=== PATIENT | male | born 1945 | race Caucasian/White ===

== ENCOUNTER 2022-05-27 10:15 | Outpatient (REF) | payer MEDICARE, SELFPAY ==
[2022-05-27 11:17] LABS: MANUAL DIFF FLAG NO
[2022-05-27 11:23] LABS: Basophils Absolute Auto 0.1 X10*3/uL (0.0-0.2); Basophils Percent Auto 1.1 % (0-2); Eosinophils Absolute Auto 0.2 X10*3/uL (0.0-0.4); Hematocrit 43.4 % (42.0-52.0); Hemoglobin 14.1 g/dl (14.0-18.0); Imm Gran Abs Auto 0.01 X10*3/uL (0.00-0.03); Imm Gran Pct Auto 0.2 % (0.0-0.4); Lymphocytes Absolute Auto 1.1 X10*3/uL (1.2-4.9); Lymphocytes Percent Auto 21.2 % (20-40); Mean Corpuscular HGB Conc 32.5 g/dl (31.0-36.0); Mean Corpuscular Hemoglobin 28.3 pg (27.0-33.0); Mean Platelet Volume 9.7 fL (9.4-12.4); Monocytes Absolute Auto 0.5 X10*3/uL (0.1-1.2); Monocytes Percent Auto 10.1 % (2-11); Neutrophils Absolute Auto 3.3 x10*3/uL (2.0-8.3); Neutrophils Percent Auto 63.4 % (45-73); Platelet Count 178 X10*3/uL (160-400); Red Blood Count 4.99 X10*6/uL (4.60-5.80); Red Cell Distribution Width 15.1 % (11.0-16.0); White Blood Count 5.2 X10*3/uL (4.8-10.8)
[2022-05-27 12:02] LABS: Alanine Aminotransferase 11 U/L (0-40); Albumin Level 4.2 g/dL (3.5-5.0); Alkaline Phosphatase 84 U/L (39-117); Anion Gap 13 (12-20); Aspartate Amino Transferase 21 U/L (5-37); Bilirubin Total 0.7 mg/dL (0.0-1.0); Blood Urea Nitrogen 21 mg/dL (9-16); Calcium 9.3 mg/dL (8.4-10.2); Carbon Dioxide 28 mmol/L (22-29); Chloride 101 mmol/L (96-108); Cholesterol 202 mg/dL; Estimated Glomerular Filt Rate > 60; Glucose Fasting 101 mg/dL (60-99); HDL Cholesterol 65 mg/dL; LDL Cholesterol Calculated 124 mg/dl; Potassium 3.5 mmol/L (3.3-5.1); Sodium 138 mmol/L (135-145); Total Protein 7.3 g/dL (6.5-8.0); Triglycerides 67 mg/dL
[2022-05-27 12:11] LABS: Prostate Specific Antigen Scr 4.05 ng/mL (<0.05-4.0); TSH reflex Free T4 1.63 uIU/mL (0.32-4.0)
[2022-05-27 13:46] LABS: Appearance Urine CLEAR; Color Urine YELLOW; Glucose Urine UA NEG (NEG); Leukocyte Esterase Urine NEG (NEG); Nitrite Urine NEG (NEG); Specific Gravity - Urine 1.025 (1.005-1.025); UACC Culture Trigger NO; Urine Blood 2+ (NEG); Urine Ketones NEG (NEG); Urine Protein NEG (NEG-TRACE)
[2022-05-27 14:29] LABS: Granular Casts Urine 0-2 /LPF; Squamous Epithelial Cell Urine 2+ /LPF; Triple Phosphate Crystal Urine 1+ /LPF; WBC Urine 0-2 /HPF (0-4)
== END 2022-05-27 10:16 | disposition home or self-care (01) ==
LOC: HO.HMGCLDS 10:15
PROVIDERS: PCP Nurse Practitioner Family; Visit Provider Internal Medicine Cardiovascular Disease
DX: R60.9 Edema, unspecified (principal); I50.32 Chronic diastolic (congestive) heart failure; Z12.5 Encounter for screening for malignant neoplasm of prostate
CPT/HCPCS: 36415; 80053; 80061; 81001; 84153; 84443; 85025

== ENCOUNTER 2022-12-26 10:19 | Outpatient (REF) | payer MEDICARE, SELFPAY ==
[2022-12-26 11:24] LABS: MANUAL DIFF FLAG NO
[2022-12-26 11:31] LABS: Basophils Absolute Auto 0.1 X10*3/uL (0.0-0.2); Basophils Percent Auto 1.3 % (0-2); Eosinophils Absolute Auto 0.3 X10*3/uL (0.0-0.4); Eosinophils Percent Auto 4.7 % (0-4); Hematocrit 42.3 % (42.0-52.0); Hemoglobin 13.6 g/dl (14.0-18.0); Imm Gran Abs Auto 0.01 X10*3/uL (0.00-0.03); Imm Gran Pct Auto 0.2 % (0.0-0.4); Lymphocytes Absolute Auto 1.5 X10*3/uL (1.2-4.9); Lymphocytes Percent Auto 27.3 % (20-40); Mean Corpuscular HGB Conc 32.2 g/dl (31.0-36.0); Mean Corpuscular Hemoglobin 29.1 pg (27.0-33.0); Mean Corpuscular Volume 90.6 fL (80.0-98.0); Monocytes Absolute Auto 0.5 X10*3/uL (0.1-1.2); Monocytes Percent Auto 8.9 % (2-11); Neutrophils Absolute Auto 3.2 x10*3/uL (2.0-8.3); Neutrophils Percent Auto 57.6 % (45-73); Platelet Count 195 X10*3/uL (160-400); Red Blood Count 4.67 X10*6/uL (4.60-5.80); Red Cell Distribution Width 14.9 % (11.0-16.0); White Blood Count 5.5 X10*3/uL (4.8-10.8)
[2022-12-26 12:36] LABS: Alanine Aminotransferase 13 U/L (0-40); Albumin Level 3.9 g/dL (3.5-5.0); Alkaline Phosphatase 80 U/L (39-117); Anion Gap 14 (12-20); Aspartate Amino Transferase 22 U/L (5-37); Bilirubin Total 0.9 mg/dL (0.0-1.0); Blood Urea Nitrogen 22 mg/dL (9-16); Calcium 9.3 mg/dL (8.4-10.2); Carbon Dioxide 27 mmol/L (22-29); Chloride 106 mmol/L (96-108); Cholesterol 183 mg/dL; Estimated Glomerular Filt Rate > 60; Glucose Fasting 94 mg/dL (60-99); HDL Cholesterol 65 mg/dL; LDL Cholesterol Calculated 106 mg/dl; Sodium 143 mmol/L (135-145); Total Protein 6.9 g/dL (6.5-8.0); Triglycerides 64 mg/dL
[2022-12-26 16:41] LABS: Appearance Urine Clear; Color Urine Yellow; Glucose Urine UA Negative (Negative); Leukocyte Esterase Urine Negative (Negative); Nitrite Urine Negative (Negative); Urine Blood Negative (Negative); Urine Ketones Negative (Negative); Urine Protein Negative (Neg-Trace)
== END 2022-12-26 10:20 | disposition home or self-care (01) ==
LOC: HO.HMGCLDS 10:19
PROVIDERS: PCP Nurse Practitioner Family; Visit Provider Nurse Practitioner Family
DX: I10 Essential (primary) hypertension (principal); R60.9 Edema, unspecified
CPT/HCPCS: 36415; 80053; 80061; 81003; 84443; 85025

== ENCOUNTER 2023-01-06 10:47 | Outpatient (REF) | payer MEDICARE, SELFPAY ==
--- NOTE | ~2023-01-06 | XR_ITS ---
EXAMINATION: XR SHOULDER, LEFT XR HUMERUS, LEFT CLINICAL INFORMATION: R58 - Hemorrhage, not elsewhere classified COMPARISON: None TECHNIQUE: Left shoulder is imaged in 3 views. The left humerus is imaged in 2 views. There are a total of 5 views. FINDINGS: Left shoulder shows no fracture or dislocation. There are degenerative changes glenohumeral joint with joint narrowing and spurring from the inferior humeral head and mild spurring inferior glenoid rim. There is elevation of the humeral head with faceting acromium which is commonly associated with chronic rotator cuff degeneration. The acromioclavicular alignment is normal. There are no visible rotator cuff calcifications. The left humerus shows no fracture or dislocation. No destructive process. There is mild spurring at the volar aspect olecranon. XR/XR humerus LT IMPRESSION: 1. Degenerative changes glenohumeral joint. 2. Elevation humeral head with faceting acromium, commonly associated with chronic rotator cuff degeneration. No visible rotator cuff calcifications. 3. No fracture, dislocation, or destructive process.
--- NOTE | ~2023-01-06 | XR_ITS ---
EXAMINATION: XR SHOULDER, LEFT XR HUMERUS, LEFT CLINICAL INFORMATION: R58 - Hemorrhage, not elsewhere classified COMPARISON: None TECHNIQUE: Left shoulder is imaged in 3 views. The left humerus is imaged in 2 views. There are a total of 5 views. FINDINGS: Left shoulder shows no fracture or dislocation. There are degenerative changes glenohumeral joint with joint narrowing and spurring from the inferior humeral head and mild spurring inferior glenoid rim. There is elevation of the humeral head with faceting acromium which is commonly associated with chronic rotator cuff degeneration. The acromioclavicular alignment is normal. There are no visible rotator cuff calcifications. The left humerus shows no fracture or dislocation. No destructive process. There is mild spurring at the volar aspect olecranon. XR/XR shoulder LT min 2V IMPRESSION: 1. Degenerative changes glenohumeral joint. 2. Elevation humeral head with faceting acromium, commonly associated with chronic rotator cuff degeneration. No visible rotator cuff calcifications. 3. No fracture, dislocation, or destructive process.
== END 2023-01-06 10:48 | disposition home or self-care (01) ==
LOC: HO.HMGCX 10:47
PROVIDERS: PCP Nurse Practitioner Family; Visit Provider Nurse Practitioner Family
DX: M19.012 Primary osteoarthritis, left shoulder (principal); R58 Hemorrhage, not elsewhere classified
CPT/HCPCS: 73030; 73060

== ENCOUNTER → 2023-01-30 12:25 | Outpatient (BNVA) | payer MEDICARE, SELFPAY | PROVIDERS: PCP Nurse Practitioner Family; Visit Provider Urology | DX: N20.0 Calculus of kidney (principal); R97.20 Elevated prostate specific antigen [PSA]; R31.29 Other microscopic hematuria | CPT/HCPCS: 51798; 99202 ==

== ENCOUNTER 2023-02-10 08:44 | Outpatient (REF) | payer MEDICARE, SELFPAY ==
--- NOTE | ~2023-02-10 | US_ITS ---
EXAMINATION: US RETROPERITONEAL COMPLETE (RENAL) CLINICAL INFORMATION: Other microscopic hematuria. COMPARISON: None available. TECHNIQUE: Real-time imaging of the kidneys and bladder. Exam is limited due to patient body habitus. FINDINGS: RIGHT KIDNEY: 9.0 x 4.7 x 5.0 cm (SAG x AP x TRV). The right kidney is slightly smaller than the left.. Renal cortical thickness is normal. There are 3 cysts measuring 2.7 x 1.6 x 2.1 cm exophytic to the lateral upper pole, 1.9 x 1.4 x 1.7 cm in the midpole and 1.5 x 1.6 x 1.7 cm in the lower pole. No imaging follow-up recommended. There is a 4 mm echogenic density with twinkle artifact in acoustic shadowing in the midpole suggestive of a stone. No hydronephrosis. LEFT KIDNEY: 11.5 x 4.7 x 4.5 cm (SAG x AP x TRV). The kidney is normal in size, contour, and echogenicity. Renal cortical thickness is normal. No calculi or focal parenchymal lesions. No hydronephrosis. BLADDER: Well distended and normal. Bilateral ureteral jets are demonstrated. Prevoid bladder volume is 169 mL. Postvoid bladder volume is 15 mL. The prostate gland measures 3.8 x 3.2 x 2.7 cm, volume 17 mL, and is normal in size. US/US retroperitoneal comp IMPRESSION: Right renal stone. Right renal cysts. Right kidney is slightly smaller than the left.
== END 2023-02-10 08:45 | disposition home or self-care (01) ==
LOC: HO.HMGCX 08:44
PROVIDERS: PCP Nurse Practitioner Family; Visit Provider Urology
DX: R31.29 Other microscopic hematuria (principal); N40.0 Benign prostatic hyperplasia without lower urinary tract symptoms
CPT/HCPCS: 76770

== ENCOUNTER 2023-03-17 12:52 | Outpatient (REF) | payer MEDICARE, SELFPAY ==
[2023-03-25 19:24] LABS: PSA, Ultra Sensitive 2.98 ng/mL
== END 2023-03-17 12:53 | disposition home or self-care (01) ==
LOC: HO.LAB 12:52
PROVIDERS: PCP Nurse Practitioner Family; Visit Provider Urology
DX: Z12.5 Encounter for screening for malignant neoplasm of prostate (principal); N40.0 Benign prostatic hyperplasia without lower urinary tract symptoms; R97.20 Elevated prostate specific antigen [PSA]
CPT/HCPCS: 36415; 84153

== ENCOUNTER → 2023-04-14 14:16 | Outpatient (BNVA) | payer MEDICARE, SELFPAY | PROVIDERS: PCP Nurse Practitioner Family; Visit Provider Urology | DX: N40.0 Benign prostatic hyperplasia without lower urinary tract symptoms (principal); N20.0 Calculus of kidney; R97.20 Elevated prostate specific antigen [PSA]; R31.29 Other microscopic hematuria | CPT/HCPCS: 52000; 99212 ==

== ENCOUNTER 2023-09-05 13:49 | Outpatient (AMB) | payer MEDICARE, SELFPAY ==
--- NOTE | 2023-09-05 13:51 | MHC.OFFWIV ---
Intake Vital Signs 09/05/23 13:52 Height 5 ft 5 in Weight 203 lb 6 oz BMI 33.8 BP 118/68 Blood Pressure Location Rt brachial Position Sitting Pulse 95 Pulse Source Pulse Oximeter Temp 97.8 F Temp Source Temporal Artery Scan Pulse Oximetry (%) 95 Intake Visit Reasons: EP Rash on face Intake Note: pt is here for c/o rash on face since this morning Patient Tobacco Use Status: Former Tobacco user Quit Date: 30 years ago Allergies No Known Allergies Allergy (Verified 09/05/23 13:53) Do you need a note to return to daycare/school/sports/work: Yes HPI HPI Comments History of Present Illness Details This is an 78-year-old male with a past medical history of BPH, hypertension and atrial fibrillation currently maintained on Coumadin presenting for evaluation of an uncomfortable rash on the right side of his face that he has had since this morning. Patient reports having headaches intermittently over the past 1 week and denies any fevers, chills or visual changes. PFSH Medical History Chronic edema HTN (hypertension) Pulmonary HTN Skin cancer BPH (benign prostatic hyperplasia) Osteoarthritis Paroxysmal A-fib Social History Housing: Apartment Patient Tobacco Use Status: Former Tobacco user Quit Date: 30 years ago Tobacco use type: Cigarette e-Cigarette/Vaping Use: Never Used Second Hand Smoke Exposure: No service: Yes Current occupational status: retired Cognitive needs: No Hearing needs: No Vision needs: No Review of Systems Const All systems reviewed & are unremarkable except as noted in HPI and below Denies chills, Denies fever(s) and Denies malaise Eyes Denies blurry vision, Denies change in vision, Denies diplopia, Denies other visual disturbances and Reports requires corrective lenses ENT Reports no additional complaints Skin/Breast Reports lesions and Reports rash Neuro Reports no additional complaints Psych Reports no additional complaints Physical Exam Vital Signs: Last Vital Signs Temp 97.8 F 09/05/23 13:52 Pulse 95 09/05/23 13:52 BP 118/68 09/05/23 13:52 Pulse Ox 95 09/05/23 13:52 BMI result Body Mass Index 33.8 Const General: cooperative, healthy appearing, comfortable, no acute distress and well developed Nutritional Appearance: overweight Orientation/consciousness: patient oriented x3 Limitations: ambulation with cane HEENT Head: Yes scalp lesion and Yes scalp tenderness Ears: external ears normal, TM's normal bilaterally and EAC's normal General nose exam: Normal external nose present Eyes General: appearance abnormal, both eyes Alignment and Position: alignment normal Periorbital: periorbital findings abnormal (single vescicle right upper eyelid adjacent to mucocutaneous border) Eyelids: No eyelids normal (lesion right upper eyelid as noted previously) Conjunctivae: conjunctivae normal (right conjunctiva injected) Corneas: corneas normal Pupils: Equal, round and reactive pupils present EOM: EOMs intact bilaterally Direct Ophthalmoscopy: no photophobia Skin Lesions: lesion noted (grouped erythematous papules, vesicles along the right V1 dermatome) Neuro General: patient oriented x3 Cranial nerves: Yes Equal, round and reactive pupils present Psych Appearance: grossly normal Mental Status: mental status grossly normal Insight: Good insight present (Psych) Judgement: Good judgement present (Psych) Assessment & Plan Assessment & Plan (1) Herpes zoster complicated: Code(s): B02.8 - Zoster with other complications Plan: Patient's history coupled with his examination is consistent with herpes zoster involving the V1 dermatome and the right eye. The patient's ophthalmologic provider is located at [facility]; they are emergently contacted and agree to see the patient in their office [facility]. Patient will see Dr. Sukhjinder Nguyen at approximately 3pm today. Patient will be prescribed Valtrex TID x 7 days and go immediately to [facility], [place]. The patient is in agreement with this plan of care. Medications: New valacyclovir 1,000 mg PO TID 21 tabs 0RF Coding Level of Care Code Est Pt Level 4 (93623) Diagnoses Herpes zoster complicated B02.8 Time Spent (min) 30
[2023-09-05 13:52] VITALS: BP 118/68; PULSE 95; TEMP 36.6; O2SAT 95; BMI 33.8
== END 2023-09-05 15:55 | disposition home or self-care (01) ==
PROVIDERS: PCP Nurse Practitioner Family; Visit Provider Physician Assistant
DX: B02.8 Zoster with other complications (principal)
CPT/HCPCS: 99214

== ENCOUNTER 2023-09-26 12:43 | Outpatient (REF) | payer MEDICARE, SELFPAY ==
--- NOTE | ~2023-09-26 | US_ITS ---
EXAMINATION: US RETROPERITONEAL LIMITED (RENAL ONLY) CLINICAL INFORMATION: Calculus of kidney. COMPARISON: X-ray KUB 09/26/2023. Renal ultrasound 02/10/2023. TECHNIQUE: Real-time imaging of the kidneys. Limited visualization due to bowel gas and body habitus. FINDINGS: RIGHT KIDNEY: 8.8 x 4.6 x 4.1 cm (SAG x AP x TRV). Right renal lower pole 0.5 cm calculus. No hydronephrosis. Right renal 2.2 cm upper pole, 1.5 cm mid pole and 1.9 cm lower pole cysts redemonstrated, better characterized on prior exam as visualization limited due to bowel gas. There is no indication for followup imaging. LEFT KIDNEY: 10.1 x 3.2 x 4.0 cm (SAG x AP x TRV). No hydronephrosis. No renal calculi. Renal cortical thickness is normal. Limited visualization. US/US renal BI IMPRESSION: Right renal lower pole 0.5 cm calculus. No hydronephrosis.
--- NOTE | ~2023-09-26 | XR_ITS ---
EXAMINATION: XR ABDOMEN KUB CLINICAL INDICATION: Renal calculus. COMPARISON: Renal ultrasound dated 02/10/2023. TECHNIQUE: 2 AP views of the abdomen and pelvis are submitted. FINDINGS: The bowel gas pattern is normal with no evidence of ileus or obstruction. No unusual soft tissue calcifications are noted. There is a marked lumbar levoscoliosis. There is an intact left hip total arthroplasty. There are aortic atherosclerotic calcifications. XR/XR KUB IMPRESSION: Unremarkable examination. No definite urinary calculus is noted, with imaging limited by overlapping bowel contents.
== END 2023-09-26 12:44 | disposition home or self-care (01) ==
LOC: HO.US 12:43
PROVIDERS: PCP Nurse Practitioner Family; Visit Provider Urology
DX: N20.0 Calculus of kidney (principal)
CPT/HCPCS: 74018; 76775

== ENCOUNTER 2023-12-20 10:26 | Outpatient (AMB) | payer MEDICARE, SELFPAY ==
[2023-12-20 12:31] VITALS: BP 108/60; PULSE 73; TEMP 36.7; O2SAT 97; BMI 33.9
--- NOTE | 2023-12-20 12:31 | MHC.OFFWIV ---
Intake Vital Signs 12/20/23 12:31 Height 5 ft 5 in Weight 204 lb BMI 33.9 BP 108/60 Blood Pressure Location Lt brachial Position Sitting Pulse 73 Pulse Source Pulse Oximeter Temp 98.1 F Temp Source Oral Pulse Oximetry (%) 97 Oxygen Delivery Method Room Air Intake Visit Reasons: EST/left shoulder pain (lobby) Intake Note: Pt is here today c/o Lt shoulder pain: No injury noted Patient Tobacco Use Status: Former Tobacco user Quit Date: 30 years ago Allergies No Known Allergies Allergy (Verified 12/20/23 12:39) HPI EST/left shoulder pain (lobby) HPI Details Patient is an 78-year-old male with history of coronary artery disease as well as atrial fibrillation, who comes into walk-in clinic complaining of acute on chronic left shoulder pain worsening recently with use. No acute trauma or repetitive trauma reported recently, however he does have history of similar symptoms and was evaluated about a year ago, with x-rays showing degenerative changes suggestive of chronic rotator cuff degeneration. He has some weakness and decreased range of motion due to pain intermittently with use. He denies chest pain or discomfort, shortness of breath, cough, fever, dizziness or weakness, myalgias or malaise, or other significant associated symptoms suggestive of cardiopulmonary etiology. Reviewed past medical history with the patient [facility] Medical History Chronic edema HTN (hypertension) Pulmonary HTN Skin cancer BPH (benign prostatic hyperplasia) Osteoarthritis Paroxysmal A-fib Social History Housing: Apartment Patient Tobacco Use Status: Former Tobacco user Quit Date: 30 years ago Tobacco use type: Cigarette e-Cigarette/Vaping Use: Never Used Second Hand Smoke Exposure: No service: Yes Current occupational status: retired Cognitive needs: No Hearing needs: No Vision needs: No Review of Systems Const All systems reviewed & are unremarkable except as noted in HPI and below Physical Exam Vital Signs: Last Vital Signs Temp 98.1 F 12/20/23 12:31 Pulse 73 12/20/23 12:31 BP 108/60 12/20/23 12:31 Pulse Ox 97 12/20/23 12:31 Oxygen Delivery Method Room Air 12/20/23 12:31 BMI result Body Mass Index 33.9 Const General: cooperative, healthy appearing, comfortable, no acute distress, alert, awake, Physically active and well groomed; No anxious, diaphoretic, ill appearing, intoxicated appearing, poor hygiene or tired appearing Nutritional Appearance: average body habitus Orientation/consciousness: oriented to person Limitations: no limitations Neck Neck: Yes normal visual inspection, Yes full ROM and Yes supple Chest Chest palpation & inspection: normal palpation of entire chest wall Resp Effort & Inspection: normal respiratory effort, able to speak in complete sentences, no audible wheezes, no cough, no grunting, not labored, no nasal flaring, no retractions and symmetric chest movement Auscultation: clear to auscultation bilaterally, no crackles, no rales, no rhonchi, no wheezes, lung sounds not diminished and No rub present Cardio Palpation: normal PMI Rate: regular rate Rhythm: regular rhythm Heart sounds: S1 normal heart sound present and S2 normal heart sound present Skin Other: Good color, warm and dry Neuro General: oriented to person Extrem Left upper extremity: normal capillary refill and shoulder/upper arm (Decreased abduction) Details: tenderness, abnormal ROM and other (Positive empty can test); ROM limited, no cyanosis and no edema Psych Appearance: grossly normal Mental Status: mental status grossly normal Speech and movement: Normal speech and movement present Affect: normal affect Attitude: cooperative Thought process: Normal thought process present Insight: Good insight present (Psych) Judgement: Good judgement present (Psych) Results Reviewed Results Reviewed: Shoulder x-ray today shows similar advanced arthritis changes from prior x-ray of last year. Assessment & Plan Assessment & Plan (1) Shoulder pain: Code(s): M25.519 - Pain in unspecified shoulder Qualifiers: Chronicity: acute Laterality: left Qualified Code(s): M25.512 - Pain in left shoulder Plan: Patient has left shoulder pain appears to be musculoskeletal in nature, although 12 lead EKG was done today due to his age as well as history of coronary artery disease as well as atrial fibrillation. 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 In regards to his shoulder, we did a x-ray today which shows similar degenerative joint disease changes from a year ago, that are apparently suspicious for chronic rotator cuff degeneration. This has likely been recently aggravated. I told him he should follow up with his primary care to consider PT or ortho referral if symptoms persist. He is aware and agrees with this plan. In the meantime he can take Tylenol or ice for the pain, as he can not tolerate NSAIDs due to blood thinner use. He knows to follow up as needed if symptoms persist or worsen. Orders: Orders AMB EKG-In Office 12/20/23 M25.519 - Pain in unspecified shoulder XR shoulder LT min 2V 12/20/23 M25.519 - Pain in unspecified shoulder Coding Level of Care Code Est Pt Level 4 (79140) Diagnoses Acute pain of left shoulder M25.512 Chronicity: acute Laterality: left
== END 2023-12-20 14:52 | disposition home or self-care (01) ==
PROVIDERS: PCP Nurse Practitioner Family; Visit Provider Physician Assistant Medical
DX: M25.512 Pain in left shoulder (principal); I48.0 Paroxysmal atrial fibrillation
CPT/HCPCS: 93000; 99214

== ENCOUNTER 2023-12-20 13:37 | Outpatient (REF) | payer MEDICARE, SELFPAY ==
--- NOTE | ~2023-12-20 | XR_ITS ---
EXAMINATION: XR SHOULDER, LEFT CLINICAL INFORMATION: Pain left shoulder COMPARISON: X-ray the left shoulder December 2022 TECHNIQUE: AP external rotation, Grashey, scapular Y, and axillary views of the left shoulder. FINDINGS: The humeral head is subluxed cephalad abutting the undersurface of the acromion as before. Advanced osteoarthritis of glenohumeral joint with prominent marginal osteophytes along the inferior aspect of the humeral head as before. Additional nonuniform joint space narrowing. Acromial clavicular joint there is arthrosis manifested by marginal osteophytes and subchondral cystic change. Surrounding bone and soft tissues unremarkable other than spondylosis of the visualized spine. XR/XR shoulder LT min 2V IMPRESSION: 1. Advanced osteoarthritis of the glenohumeral joint and acromioclavicular joint as before. 2. Degenerative changes of the visualized spine.
== END 2023-12-20 13:38 | disposition home or self-care (01) ==
LOC: HO.HMGCX 13:37
PROVIDERS: PCP Nurse Practitioner Family; Visit Provider Physician Assistant Medical
DX: M25.512 Pain in left shoulder (principal)
CPT/HCPCS: 73030

== ENCOUNTER 2024-04-14 09:53 | Outpatient (AMB) | payer MEDICARE, SELFPAY ==
--- NOTE | 2024-04-14 10:06 | MHC.PC.OV ---
Vital Signs 04/14/24 10:08 Height 5 ft 5 in Weight 198 lb BMI 32.9 BP 116/62 Blood Pressure Location Rt brachial Position Sitting Pulse 78 Pulse Source Pulse Oximeter Pulse Oximetry (%) 96 Oxygen Delivery Method Room Air Intake Visit Reasons: 6M. F/U-Arthritis Intake Note: Patient here to f/u on Arthritis Allergies No Known Allergies Allergy (Verified 04/14/24 11:07) Medication List - Last Reconciled 04/14/24 by KIERRA Garcia aspirin 1 tab PO DAILY cholecalciferol (vitamin D3) 50 mcg PO DAILY finasteride (Proscar) 5 mg PO DAILY 90 days furosemide 80 mg PO DAILY metoprolol tartrate 50 mg PO BID 90 days nitroglycerin 0 mg sublingual pravastatin 80 mg PO DAILY 90 days warfarin (Jantoven) 5 mg PO DAILY 90 days Tobacco use date assessed: 04/14/24 Fall risk assessment: No Falls in past year Last assessed Fall Risk: 04/14/24 Dental Screening Dental Screen Date: 04/14/24 Was dental information given to patient?: Patient declined HPI 6M. F/U-Arthritis HPI Details HTN: Blood pressure is stable, managed with furosemide 80mg and metoprolol 50mg bid. Will order labs. Denies chest pain, shortness of breath, headache, dizziness, and blurred vision. Due for PSA, will order. Denies dribbling with urination, weak stream, and frequent nocturia. Pt sees cardiology. He has not seen urology recently. Pt has had significant swelling of his BLE for years. He refuses compression socks. He also refuses to increase lasix because he pees enough. [facility] Medical History Chronic edema HTN (hypertension) Pulmonary HTN Skin cancer BPH (benign prostatic hyperplasia) Osteoarthritis Paroxysmal A-fib Social History Housing: Apartment Patient Tobacco Use Status: Former Tobacco user Tobacco use type: Cigarette e-Cigarette/Vaping Use: Never Used Second Hand Smoke Exposure: No service: Yes Current occupational status: retired Cognitive needs: No Hearing needs: No Vision needs: No Questionnaire PHQ-9 Over the last 2 weeks, how often have you been bothered by any of the following problems? 11871 - PHQ-9 Billing: Patient declined-do not bill Source: Developed by Drs. Jose Alejandro Owens, Davi Hinojosa and colleagues, with an educational perry from [employer]. Thrive Questionnaire Date Thrive assessed: 04/17/22 AUDIT C Alcohol Use Questionnaire (AUDIT-C) 1. How often do you have a drink containing alcohol?: Never 3. How often do you have six or more drinks on one occasion?: Never Total Score: 0 Score Reviewed/Action Taken: No EMIGDIO-7 AMB Questionnaire EMIGDIO-7 Date EMIGDIO - 7 assessed: 04/17/22 Source: Developed by Iris Farley Kurt Kroenke and colleagues, with an educational perry from [employer]. Review of Systems Const Reports as per HPI Physical exam (Primary Care) Vital Signs: Last Vital Signs Pulse 78 04/14/24 10:08 BP 116/62 04/14/24 10:08 Pulse Ox 96 04/14/24 10:08 Oxygen Delivery Method Room Air 04/14/24 10:08 BMI result Body Mass Index 32.9 Tobacco/Smoking Status: Tobacco use Status Tobacco use date assessed 04/14/24 04/14/24 10:11 Patient Tobacco Use Status Former Tobacco user 04/14/24 10:07 Tobacco use type Cigarette 04/14/24 10:07 e-Cigarette/Vaping Use Never Used 04/14/24 10:07 Thrive Assessment: Date of Thrive Assessment Date Thrive assessed 04/17/22 04/14/24 10:07 Const General: cooperative Orientation/consciousness: patient oriented x3 Resp Effort & Inspection: normal respiratory effort Auscultation: clear to auscultation bilaterally and diminished lung sounds Cardio Rate: regular rate Rhythm: regular rhythm Heart sounds: S1 normal heart sound present and S2 normal heart sound present Neuro General: patient oriented x3 Extrem Right lower extremity: edema Details: pitting and 3+ Left lower extremity: edema Details: pitting and 3+ Psych Appearance: grossly normal Mental Status: mental status grossly normal Speech and movement: Normal speech and movement present Affect: normal affect Attitude: cooperative Thought process: Normal thought process present Thought content: Normal thought content present Insight: Good insight present (Psych) Judgement: Good judgement present (Psych) Assessment and Plan Assessment & Plan (1) HTN (hypertension): Code(s): I10 - Essential (primary) hypertension Plan: Stable, labs ordered (2) Elevated PSA: Code(s): R97.20 - Elevated prostate specific antigen [PSA] Plan: PSA ordered (3) Vitamin D deficiency: Code(s): E55.9 - Vitamin D deficiency, unspecified Plan: Labs ordered Plan The patient agreed to the use of a medical laboratory technical officer for this encounter. Scribed for KIERRA Alvarado by damien Minor scribe, on 04/14/2024 at 10:25 EST. Orders: Orders UA CC w/rflx Micro + Cult Today I10 - Essential (primary) hypertension PSA, Ultra Sensitive Today R97.20 - Elevated prostate specific antigen [PSA] Vitamin D 25-OH Total Today E55.9 - Vitamin D deficiency, unspecified Complete Blood Count Auto Diff Today I10 - Essential (primary) hypertension Comprehensive [place]. Panel Fast Today I10 - Essential (primary) hypertension TSH reflex Free T4 Today I10 - Essential (primary) hypertension Lipid Panel Today I10 - Essential (primary) hypertension Coding Level of Care Code Est Pt Level 3 (04045) Diagnoses HTN (hypertension) I10 Elevated PSA R97.20 Vitamin D deficiency E55.9
[2024-04-14 10:08] VITALS: BP 116/62; PULSE 78; O2SAT 96; BMI 32.9
== END 2024-04-14 10:45 | disposition home or self-care (01) ==
PROVIDERS: PCP Nurse Practitioner Family; Visit Provider Nurse Practitioner Family
DX: I10 Essential (primary) hypertension (principal); R97.20 Elevated prostate specific antigen [PSA]; E55.9 Vitamin D deficiency, unspecified
CPT/HCPCS: 99213

== ENCOUNTER 2024-05-28 09:08 | Outpatient (AMB) | payer MEDICARE, SELFPAY ==
--- NOTE | 2024-05-28 09:27 | MHC.OFFVIS ---
Intake Visit Reasons: overdue f/u. BPH. KUB and renal ultrasound Intake Note: Patient is present for a overdue f/u, BPH.KUB and renal uktrasound Urology Med: None Antibiotic Allergy: None Blood Thinner: Aspirin, Warfarin Insurance Territory Manager Required: No Allergies No Known Allergies Allergy (Verified 05/28/24 09:29) Medication List - Last Reconciled 05/28/24 by Willa Wyatt MD aspirin 1 tab PO DAILY cholecalciferol (vitamin D3) 50 mcg PO DAILY finasteride (Proscar) 5 mg PO DAILY 90 days furosemide 80 mg PO DAILY metoprolol tartrate 50 mg PO BID 90 days nitroglycerin 0 mg sublingual pravastatin 80 mg PO DAILY 90 days warfarin (Jantoven) 5 mg PO DAILY 90 days HPI Comments Details: 05/28/2024--Ramsey is followed for BPH and kidney stone, microscopic hematuria, he is on Coumadin. He is prescribed Proscar. I reviewed renal ultrasound 09/26/2023 right renal stones stable. He states he has voiding without difficulty. Continue to monitor right kidney stone. Follow-up in 9 months. Review of chart: 01/30/2023--Ramsey is a 77-year-old male who presents to the clinic as new patient evaluation for elevated PSA. The patient denies dysuira. He does not have history of UTI. Smoked one pack a day till the age of 48 years. Occasional postvoid dribbling after voiding. PSA results reviewed?05/27/2022?4.05. Evaluation today: Blood: 1+, Leukocytes: negative. Bladder scan PVR: 0 mL AUA symptom score: 6. Prostate exam: Smooth, no suspicious nodules palpated. Plan: Elevated PSA will monitor. Repeat PSA was ordered. Microscopic hematuria. Urine cytology was ordered. Cystoscopy procedure was explained at length. US renal was ordered. 04/14/23-- Pt being evaluated due to microscopic hematuria and elevated PSA. Repeat PSA results reviewed?03/17/23?2.98 US retroperitoneal--02/10/23-- Bladder: WNL, Findings of right renal stone and right renal cysts. Right kidney is slightly smaller than the left. Evaluation today-- Blood:2+ leukocytes: negative. Cystoscopy findings: No suspicious bladder lesions visualized. Bladder: WNL. prostate - bilobar enlargement, prostate not obstructive PFSH Medical History (Updated 06/29/24 @ 17:11 by Rob Hussein, [facility]) CARA (acute kidney injury) Kidney stone Kidney cysts Chronic edema HTN (hypertension) Pulmonary HTN Skin cancer BPH (benign prostatic hyperplasia) Osteoarthritis Paroxysmal A-fib Social History Housing: Apartment Patient Tobacco Use Status: Former Tobacco user Tobacco use type: Cigarette e-Cigarette/Vaping Use: Never Used Second Hand Smoke Exposure: No service: Yes Current occupational status: retired Cognitive needs: No Hearing needs: No Vision needs: No Review of Systems Const All systems reviewed & are unremarkable except as noted in HPI and below Reports no additional complaints Eyes Reports no additional complaints ENT Reports no additional complaints Card Reports no additional complaints Resp Reports no additional complaints GI Reports no additional complaints Reports as per HPI Musc Reports no additional complaints Skin/Breast Reports system reviewed and no additional complaints, except as documented Neuro Reports no additional complaints Psych Reports no additional complaints Endo Reports no additional complaints Kwaku/Lymph Reports no additional complaints Aller/Immun Reports no additional complaints Results AMB Urinalysis, Automated UA Leukoctes 0 Arvind/uL Last Edit by DENISE [place] on 05/28/24 09:38 UA Nitrite Negative Last Edit by DENISE [place] on 05/28/24 09:38 UA Urobilinogen 0.2 mg/dL Last Edit by DENISE [place] on 05/28/24 09:38 UA Protein 15 mg/dL Last Edit by DENISE [place] on 05/28/24 09:38 UA pH 6.0 Last Edit by DENISE [place] on 05/28/24 09:38 UA Blood 25 Perico/uL Last Edit by DENISE [place] on 05/28/24 09:38 UA Specific [place] 1.015 Last Edit by DENISE [place] on 05/28/24 09:38 UA Ketone Negative Last Edit by EDNISE [place] on 05/28/24 09:38 UA Bilirubin 0 mg/dL Last Edit by DENISE [place] on 05/28/24 09:38 UA Glucose 0 mg/dL Last Edit by DENISE [place] on 05/28/24 09:38 Results Reviewed Results Reviewed: Laboratory Last Values Urine pH (Auto) 6.0 05/28/24 09:36 Specific [place] (Auto) 1.015 05/28/24 09:36 Urine Protein (Auto) 15 mg/dL 05/28/24 09:36 Glucose (UA)(Auto) 0 mg/dL 05/28/24 09:36 Urine Ketones (Auto) Negative 05/28/24 09:36 Urine Blood (Auto) 25 Perico/uL 05/28/24 09:36 Urine Nitrite (Auto) Negative 05/28/24 09:36 Urine Bilirubin (Auto) 0 mg/dL 05/28/24 09:36 Urine Urobilinogen (Auto) 0.2 mg/dL 05/28/24 09:36 Leukocyte Esterase (Auto) 0 Arvind/uL 05/28/24 09:36 Date of Service: 09/26/23 EXAMINATION: US RETROPERITONEAL LIMITED (RENAL ONLY) CLINICAL INFORMATION: Calculus of kidney. COMPARISON: X-ray KUB 09/26/2023. Renal ultrasound 02/10/2023. TECHNIQUE: Real-time imaging of the kidneys. Limited visualization due to bowel gas and body habitus. FINDINGS: RIGHT KIDNEY: 8.8 x 4.6 x 4.1 cm (SAG x AP x TRV). Right renal lower pole 0.5 cm calculus. No hydronephrosis. Right renal 2.2 cm upper pole, 1.5 cm mid pole and 1.9 cm lower pole cysts redemonstrated, better characterized on prior exam as visualization limited due to bowel gas. There is no indication for followup imaging. LEFT KIDNEY: 10.1 x 3.2 x 4.0 cm (SAG x AP x TRV). No hydronephrosis. No renal calculi. Renal cortical thickness is normal. Limited visualization. IMPRESSION: Right renal lower pole 0.5 cm calculus. No hydronephrosis. Date of Service: 02/10/23 EXAMINATION: US RETROPERITONEAL COMPLETE (RENAL) CLINICAL INFORMATION: Other microscopic hematuria. COMPARISON: None available. TECHNIQUE: Real-time imaging of the kidneys and bladder. Exam is limited due to patient body habitus. FINDINGS: RIGHT KIDNEY: 9.0 x 4.7 x 5.0 cm (SAG x AP x TRV). The right kidney is slightly smaller than the left.. Renal cortical thickness is normal. There are 3 cysts measuring 2.7 x 1.6 x 2.1 cm exophytic to the lateral upper pole, 1.9 x 1.4 x 1.7 cm in the midpole and 1.5 x 1.6 x 1.7 cm in the lower pole. No imaging follow-up recommended. There is a 4 mm echogenic density with twinkle artifact in acoustic shadowing in the midpole suggestive of a stone. No hydronephrosis. LEFT KIDNEY: 11.5 x 4.7 x 4.5 cm (SAG x AP x TRV). The kidney is normal in size, contour, and echogenicity. Renal cortical thickness is normal. No calculi or focal parenchymal lesions. No hydronephrosis. BLADDER: Well distended and normal. Bilateral ureteral jets are demonstrated. Prevoid bladder volume is 169 mL. Postvoid bladder volume is 15 mL. The prostate gland measures 3.8 x 3.2 x 2.7 cm, volume 17 mL, and is normal in size. IMPRESSION: Right renal stone. Right renal cysts. Right kidney is slightly smaller than the left. Assessment & Plan Assessment & Plan (1) BPH (benign prostatic hyperplasia): Code(s): N40.0 - Benign prostatic hyperplasia without lower urinary tract symptoms Category: Medical (2) Microscopic hematuria: Code(s): R31.29 - Other microscopic hematuria Category: Medical (3) Kidney stone: Code(s): N20.0 - Calculus of kidney Category: Medical Plan Monitor kidney stones. Follow-up in 9 months renal ultrasound prior Orders: Orders AMB Urinalysis Automated 05/28/24 Z13.9 - Encounter for screening, unspecified US renal BI 7 Months N20.0 - Calculus of kidney, R31.29 - Other microscopic hematuria, N40.0 - Benign prostatic hyperplasia without lower urinary tract symptoms Medications: Changed From finasteride 5 mg PO DAILY 30 days 30 tabs 0RF To finasteride (Proscar) 5 mg PO DAILY 90 tabs 3RF 90 days Coding Level of Care Code Est Pt Level 3 (54172) Diagnoses BPH (benign prostatic hyperplasia) N40.0 Microscopic hematuria R31.29 Kidney stone N20.0
== END 2024-05-28 10:06 | disposition home or self-care (01) ==
PROVIDERS: PCP Nurse Practitioner Family; Visit Provider Urology
DX: N40.0 Benign prostatic hyperplasia without lower urinary tract symptoms (principal); R31.29 Other microscopic hematuria; N20.0 Calculus of kidney
CPT/HCPCS: 99213

== ENCOUNTER → 2024-05-28 09:08 | Outpatient (BNVA) | payer MEDICARE, SELFPAY | PROVIDERS: PCP Nurse Practitioner Family; Visit Provider Urology | DX: N40.0 Benign prostatic hyperplasia without lower urinary tract symptoms (principal); N20.0 Calculus of kidney; R31.29 Other microscopic hematuria; Z79.01 Long term (current) use of anticoagulants | CPT/HCPCS: 81003; 99212 ==

== ENCOUNTER 2024-06-22 11:11 | Outpatient (REF) | payer MEDICARE, SELFPAY ==
[2024-06-22 13:32] LABS: MANUAL DIFF FLAG NO
[2024-06-22 13:39] LABS: Basophils Absolute Auto 0.1 X10*3/uL (0.0-0.2); Eosinophils Absolute Auto 0.2 X10*3/uL (0.0-0.4); Eosinophils Percent Auto 3.5 % (0-4); Hematocrit 39.8 % (42.0-52.0); Hemoglobin 13.2 g/dl (14.0-18.0); Imm Gran Abs Auto 0.01 X10*3/uL (0.00-0.03); Imm Gran Pct Auto 0.1 % (0.0-0.4); Lymphocytes Absolute Auto 1.5 X10*3/uL (1.2-4.9); Lymphocytes Percent Auto 21.4 % (20-40); Mean Corpuscular HGB Conc 33.2 g/dl (31.0-36.0); Mean Corpuscular Hemoglobin 29.1 pg (27.0-33.0); Mean Corpuscular Volume 87.9 fL (80.0-98.0); Mean Platelet Volume 10.4 fL (9.4-12.4); Monocytes Absolute Auto 0.7 X10*3/uL (0.1-1.2); Monocytes Percent Auto 10.7 % (2-11); Neutrophils Absolute Auto 4.4 x10*3/uL (2.0-8.3); Neutrophils Percent Auto 63.3 % (45-73); Platelet Count 208 X10*3/uL (160-400); Red Blood Count 4.53 X10*6/uL (4.60-5.80); Red Cell Distribution Width 16.3 % (11.0-16.0); White Blood Count 6.9 X10*3/uL (4.8-10.8)
[2024-06-22 14:09] LABS: Alanine Aminotransferase 15 U/L (0-40); Alkaline Phosphatase 73 U/L (39-117); Anion Gap 17 (12-20); Aspartate Amino Transferase 25 U/L (5-37); Blood Urea Nitrogen 17 mg/dL (9-16); Calcium 9.8 mg/dL (8.4-10.2); Carbon Dioxide 25 mmol/L (22-29); Chloride 100 mmol/L (96-108); Cholesterol 162 mg/dL (<200); Estimated Glomerular Filt Rate > 60; Glucose Fasting 111 mg/dL (60-99); HDL Cholesterol 62 mg/dL (>40); LDL Cholesterol Calculated 86 mg/dL (<100); Potassium 3.2 mmol/L (3.3-5.1); Sodium 139 mmol/L (135-145); TSH reflex Free T4 1.73 uIU/mL (0.32-4.0); Total Protein 7.5 g/dL (6.5-8.0); Triglycerides 72 mg/dL (<150); Vitamin D 25-OH Total 30.2 ng/mL (>30)
[2024-07-02 02:03] LABS: PSA, Ultra Sensitive 0.02 ng/mL
== END 2024-06-22 11:12 | disposition home or self-care (01) ==
LOC: HO.HMGCLDS 11:11
PROVIDERS: PCP Nurse Practitioner Family; Visit Provider Nurse Practitioner Family
DX: I10 Essential (primary) hypertension (principal); E55.9 Vitamin D deficiency, unspecified; R97.20 Elevated prostate specific antigen [PSA]; Z12.5 Encounter for screening for malignant neoplasm of prostate
CPT/HCPCS: 36415; 80053; 80061; 82306; 84153; 84443; 85025

== ENCOUNTER 2024-09-15 09:50 | Outpatient (REF) | payer MEDICARE, SELFPAY ==
[2024-09-21 21:33] LABS: PSA, Ultra Sensitive <0.02 ng/mL
== END 2024-09-15 09:51 | disposition home or self-care (01) ==
LOC: HO.HMGCX 09:50
PROVIDERS: PCP Nurse Practitioner Family; Visit Provider Urology
DX: N20.0 Calculus of kidney (principal); R31.29 Other microscopic hematuria; N40.0 Benign prostatic hyperplasia without lower urinary tract symptoms; R97.20 Elevated prostate specific antigen [PSA]; Z12.5 Encounter for screening for malignant neoplasm of prostate
CPT/HCPCS: 36415; 76775; 84153

== ENCOUNTER 2024-09-27 15:01 | Outpatient (AMB) | payer MEDICARE, SELFPAY ==
--- NOTE | 2024-09-27 13:27 | A.OFFVIS_ITS ---
Intake Visit Reasons: follow up PSA/US(PSA Pending) Intake Note: Patient is present for PSA F/U Urology Medication:FINASTERIDE Antibiotic Allergy:NONE Blood Thinner:ASPIRIN,WARFARIN Deaf/Hard Of Hearing Specialist Required: No Allergies No Known Allergies Allergy (Verified 09/27/24 15:09) Medication List - Last Reconciled 09/27/24 by Willa Wyatt MD aspirin 1 tab PO DAILY cholecalciferol (vitamin D3) 50 mcg PO DAILY finasteride (Proscar) 5 mg PO DAILY 90 days furosemide 80 mg PO DAILY metoprolol tartrate 50 mg PO BID 90 days nitrofurantoin monohyd/m-cryst 100 mg (Macrobid) 100 mg PO BID nitroglycerin 0 mg sublingual pravastatin 80 mg PO DAILY 90 days warfarin (Jantoven) 5 mg PO DAILY 90 days HPI Comments Details: 09/27/24--follow-up PSA and renal ultrasound. He complains of increased urinary leakage over the last 3 weeks. Bladder scan PVR 16 mL. I will send urine for culture and empirically start Macrobid b.i.d. for 7 days. Discussed PSA and ultrasound results 09/15/2024 PSA--less than 0.02 ng/mL 09/15/24--Renal ultrasound imaging-right kidney simple cysts, left kidney 6 mm stone midpole- stable. Review of chart: 05/28/2024--Ramsey is followed for BPH and kidney stone, microscopic hematuria, he is on Coumadin. He is prescribed Proscar. I reviewed renal ultrasound 09/26/2023 right renal stones stable. He states he has voiding without difficulty. Continue to monitor right kidney stone. Follow-up in 9 months. 01/30/2023--Ramsey is a 77-year-old male who presents to the clinic as new patient evaluation for elevated PSA. The patient denies dysuira. He does not have history of UTI. Smoked one pack a day till the age of 48 years. Occasional postvoid dribbling after voiding. PSA results reviewed?05/27/2022?4.05. Evaluation today: Blood: 1+, Leukocytes: negative. Bladder scan PVR: 0 mL AUA symptom score: 6. Prostate exam: Smooth, no suspicious nodules palpated. Plan: Elevated PSA will monitor. Repeat PSA was ordered. Microscopic hematuria. Urine cytology was ordered. Cystoscopy procedure was explained at length. US renal was ordered. 04/14/23-- Pt being evaluated due to microscopic hematuria and elevated PSA. Repeat PSA results reviewed?03/17/23?2.98 US retroperitoneal--02/10/23-- Bladder: WNL, Findings of right renal stone and right renal cysts. Right kidney is slightly smaller than the left. Evaluation today-- Blood:2+ leukocytes: negative. Cystoscopy findings: No suspicious bladder lesions visualized. Bladder: WNL. prostate - bilobar enlargement, prostate not obstructive PFSH Medical History CARA (acute kidney injury) Kidney stone Kidney cysts Chronic edema HTN (hypertension) Pulmonary HTN Skin cancer BPH (benign prostatic hyperplasia) Osteoarthritis Paroxysmal A-fib Social History Housing: Apartment Patient Tobacco Use Status: Former Tobacco user Tobacco use type: Cigarette e-Cigarette/Vaping Use: Never Used Second Hand Smoke Exposure: No service: Yes Current occupational status: retired Cognitive needs: No Hearing needs: No Vision needs: No Review of Systems Const All systems reviewed & are unremarkable except as noted in HPI and below Reports no additional complaints Eyes Reports no additional complaints ENT Reports no additional complaints Card Reports no additional complaints Resp Reports no additional complaints GI Reports no additional complaints Reports as per HPI Musc Reports no additional complaints Skin/Breast Reports system reviewed and no additional complaints, except as documented Neuro Reports no additional complaints Psych Reports no additional complaints Endo Reports no additional complaints Kwaku/Lymph Reports no additional complaints Aller/Immun Reports no additional complaints Results AMB Urinalysis, Automated UA Leukoctes 0 Arvind/uL Last Edit by DENISE [place] on 09/27/24 15:22 UA Nitrite Negative Last Edit by DENISE [place] on 09/27/24 15:22 UA Urobilinogen 0.2 mg/dL Last Edit by DENISE [place] on 09/27/24 15:2 2 UA Protein 30 mg/dL Last Edit by DENISE [place] on 09/27/24 15:22 UA pH 6.0 Last Edit by DENISE [place] on 09/27/24 15:22 UA Blood 80 Perico/uL Last Edit by DENISE [place] on 09/27/24 15:22 UA Specific [place] 1.015 Last Edit by DENISE [place] on 09/27/24 15: 22 UA Ketone Negative Last Edit by DENISE [place] on 09/27/24 15:22 UA Bilirubin 0 mg/dL Last Edit by DENISE [place] on 09/27/24 15:22 UA Glucose 0 mg/dL Last Edit by DENISE [place] on 09/27/24 15:22 Results Reviewed Results Reviewed: Laboratory Last Values Urine pH (Auto) 6.0 09/27/24 15:22 Specific [place] (Auto) 1.015 09/27/24 15:22 Urine Protein (Auto) 30 mg/dL 09/27/24 15:22 Glucose (UA)(Auto) 0 mg/dL 09/27/24 15:22 Urine Ketones (Auto) Negative 09/27/24 15:22 Urine Blood (Auto) 80 Perico/uL 09/27/24 15:22 Urine Nitrite (Auto) Negative 09/27/24 15:22 Urine Bilirubin (Auto) 0 mg/dL 09/27/24 15:22 Urine Urobilinogen (Auto) 0.2 mg/dL 09/27/24 15:22 Leukocyte Esterase (Auto) 0 Arvind/uL 09/27/24 15:22 Date of Service: 09/26/23 EXAMINATION: US RETROPERITONEAL LIMITED (RENAL ONLY) CLINICAL INFORMATION: Calculus of kidney. COMPARISON: X-ray KUB 09/26/2023. Renal ultrasound 02/10/2023. TECHNIQUE: Real-time imaging of the kidneys. Limited visualization due to bowel gas and body habitus. FINDINGS: RIGHT KIDNEY: 8.8 x 4.6 x 4.1 cm (SAG x AP x TRV). Right renal lower pole 0.5 cm calculus. No hydronephrosis. Right renal 2.2 cm upper pole, 1.5 cm mid pole and 1.9 cm lower pole cysts redemonstrated, better characterized on prior exam as visualization limited due to bowel gas. There is no indication for followup imaging. LEFT KIDNEY: 10.1 x 3.2 x 4.0 cm (SAG x AP x TRV). No hydronephrosis. No renal calculi. Renal cortical thickness is normal. Limited visualization. IMPRESSION: Right renal lower pole 0.5 cm calculus. No hydronephrosis. Date of Service: 02/10/23 EXAMINATION: US RETROPERITONEAL COMPLETE (RENAL) CLINICAL INFORMATION: Other microscopic hematuria. COMPARISON: None available. TECHNIQUE: Real-time imaging of the kidneys and bladder. Exam is limited due to patient body habitus. FINDINGS: RIGHT KIDNEY: 9.0 x 4.7 x 5.0 cm (SAG x AP x TRV). The right kidney is slightly smaller than the left.. Renal cortical thickness is normal. There are 3 cysts measuring 2.7 x 1.6 x 2.1 cm exophytic to the lateral upper pole, 1.9 x 1.4 x 1.7 cm in the midpole and 1.5 x 1.6 x 1.7 cm in the lower pole. No imaging follow-up recommended. There is a 4 mm echogenic density with twinkle artifact in acoustic shadowing in the midpole suggestive of a stone. No hydronephrosis. LEFT KIDNEY: 11.5 x 4.7 x 4.5 cm (SAG x AP x TRV). The kidney is normal in size, contour, and echogenicity. Renal cortical thickness is normal. No calculi or focal parenchymal lesions. No hydronephrosis. BLADDER: Well distended and normal. Bilateral ureteral jets are demonstrated. Prevoid bladder volume is 169 mL. Postvoid bladder volume is 15 mL. The prostate gland measures 3.8 x 3.2 x 2.7 cm, volume 17 mL, and is normal in size. IMPRESSION: Right renal stone. Right renal cysts. Right kidney is slightly smaller than the left. Assessment & Plan Assessment & Plan (1) BPH (benign prostatic hyperplasia): Code(s): N40.0 - Benign prostatic hyperplasia without lower urinary tract symptoms Category: Medical (2) Microscopic hematuria: Code(s): R31.29 - Other microscopic hematuria Category: Medical (3) Kidney stone: Code(s): N20.0 - Calculus of kidney Category: Medical Plan Proscar, Macrobid b.i.d., continue to monitor Orders: Orders Urine Culture 09/27/24 N39.0 - Urinary tract infection, site not specified AMB Urinalysis Automated 09/27/24 Z13.9 - Encounter for screening, unspecified Medications: New nitrofurantoin monohyd/m-cryst 100 mg (Macrobid) must administer with a meal/food 100 mg PO BID 14 caps 0RF Refilled finasteride (Proscar) 5 mg PO DAILY 90 tabs 3RF 90 days Patient Instructions: The patient had an opportunity to ask questions regarding treatment plan. The patient expressed understanding and agreement with the above treatment plan. The patient is aware they should contact our office by phone for worsening of their current condition or the appearance of new symptoms. Compliance is encouraged with any medications and followup testing that is ordered. It is a privilege to be allowed the opportunity to participate in the urologic care of your patient. If you have any questions or concerns regarding treatment for the above conditions please do not hesitate to contact me. The office telephone contact is [phone]. This note is constructed in part using voice recognition software. While every effort has been made to ensure accuracy seismograph computer errors may have been included. Yours sincerely, Willa Wyatt MD Coding Level of Care Code Est Pt Level 4 (86739) Diagnoses BPH (benign prostatic hyperplasia) N40.0 Microscopic hematuria R31.29 Kidney stone N20.0
== END 2024-09-27 15:38 | disposition home or self-care (01) ==
PROVIDERS: PCP Nurse Practitioner Family; Visit Provider Urology
DX: N40.0 Benign prostatic hyperplasia without lower urinary tract symptoms (principal); R31.29 Other microscopic hematuria; N20.0 Calculus of kidney
CPT/HCPCS: 99214

== ENCOUNTER 2024-09-27 15:01 | Outpatient (REF) | payer MEDICARE, SELFPAY | END 2024-09-27 15:02 | disposition home or self-care (01) | LOC: HO.LAB 15:01 | PROVIDERS: PCP Nurse Practitioner Family; Visit Provider Urology | DX: R31.29 Other microscopic hematuria (principal); N39.0 Urinary tract infection, site not specified; N20.0 Calculus of kidney; N28.1 Cyst of kidney, acquired | CPT/HCPCS: 81003; 87086; 99212 ==

== ENCOUNTER 2024-11-19 13:35 | Outpatient (AMB) | payer MEDICARE, SELFPAY ==
--- OUTSIDE RECORDS SUMMARY | 2024-11-19 13:37 | XMS_ITS | Patient Health Record ---
[facility] Organization [facility] [place] Address [address] [place] [address] Care Team Providers Care Set Up Mold Technician Name Role Phone Rob Doshi Primary Care Provider Unav ailable Shawanda Montaño Unavailable [phone] Allergies No Known Allergies Reason For Referral No Information Medications Medication SIG (Take, Route, Frequency, Duration) Notes Start Date End Date Status Furosemide 80 MG 1 tablet Orally Once a day Active Rosuvastatin Calcium 40 MG 1 tablet Oral ly Once a day Active Orthopedic Extra Depth Shoes With Custom Heat Molded Multidensity Innersoles 1 Pair shoes with 3 Pair custom heat molded innersoles Wear Daily for 365 days 06/02/2024 Active Metoprolol Tartrate 50 MG 1 tablet with food Orally Twice a day Active Tamsulosin HCl 0.4 MG 1 capsule Orally O nce a day Active Nitroglycerin 0.4 MG as directed Sublingual Active Jantoven 5 MG 1 tablet Orally Once a day Active Finasteride 5 MG 1 tablet Orally Once a day Active Cephalexin 500 MG 1 capsule Orally Fou r times a day Not-Taking Social History Tobacco Use: Social History Observation Description Date Details (start date - stop date) Former Smoker NA - NA Tobacco Use/Smoking Question Answer Notes Are you a: former smoker Additional Findings: Tobacco Non-User Current no n-smoker Alcohol Screen Question Answer Notes Did you have a drink contain ing alcohol in the past year? Yes How often did you have a dri nk containing alcohol in the past year? Monthly or less (1 point) Points 1 Interpretation Negative Tobacco use other than smoking: Question Answer Notes Are you an other tobacco user? No Problems Problem Type SNOMED Code ICD Code Onset Dates Problem Status W/U Status Risk Notes Problem Acquired hammer toe of right foot (8082370008440519) Other hammer toe(s) (acquired), right foot (M20.41) Active confirmed Problem Acquired hammer toe of left foot (2405964983712633) Other hammer toe(s) (acquired), left foot (M20.42) Active confirmed Problem 05099950 Plantar fascial fibromatosis (M72.2) Active confirmed Problem Atherosclerosis of [place] artery of both lower extremities, with unspecified presence of clinical manifestation (I70.203) Active confirmed Problem [id number] Acute gout of l eft foot, unspecified cause (M10.9) Active confirmed Vital Signs Height 5 ft 5 in in 08/17/2024 Weight 200 lbs 08/17/2024 BMI 33.28 kg/m2 08/17/2024 Encounters Encounter Location Date Provider Diagnosis [address] [address] 03/16/2024 Shawanda Montaño Atherosclerosis of [place] artery of both lower extremities, with unspecified presence of clinical manifestation I70.203 ; Edema, lower extremity R60.0 ; Tinea unguium B35.1 ; Pain in right toe(s) M79.674 and Pain in left toe(s) M79.[address] [address] 06/02/2024 Shawanda Montaño Edema, lower extremi ty R60.0 ; Other hammer toe(s) (acquired), right foot M20.41 ; Atherosclerosis of [place] artery of both lower extremities, with unspecified presence of clinical manifestation I70.203 ; Tinea unguium B35.1 ; Pain in right toe(s) M79.674 ; Pain in left toe(s) M79.675 and Other hammer toe(s) (acquired), left foot M20.[address] [address] 08/17/2024 Shawanda Montaño Acute gout of left foot, unspecified cause M10.9 ; Other hammer toe(s) (acquired), right foot M20.41 ; Edema, lower extremity R60.0 ; Atherosclerosis of [place] artery of both lower extremities, with unspecified presence of clinical manifestation I70.203 ; Tinea unguium B35.1 ; Pain in right toe(s) M79.674 ; Pain in left toe(s) M79.675 ; Other hammer toe(s) (acquired), left foot M20.42 and Plantar fascial fibromatosis M72.2 [facility] [address] [place] [address] 12/19/2023 Shawanda Perica [facility] [address] [address] 12/30/2023 Shawanda Perica [facility] [address] [address] 03/16/2024 Shawanda Perica [facility] [address] 09/01/2024 Shawanda Perica [facility] [address] 11/16/2024 Shawanda Montaño Assessments Encounter Date Diagnosis (ICD Code) Assessment Notes Treatment Notes Treatment Clinical Notes Section Notes 03/16/2024 Atherosclerosis of [place] artery of both lower extremities, with unspecified presence of clinical manifestation (ICD-10 - I70.203) 03/16/2024 Edema, lower extremity (ICD-10 - R60.0) 06/02/2024 Other hammer toe(s) (acquired), right foot (ICD-10 - M20.41) 06/02/2024 Edema, lower extremity (ICD-10 - R60.0) 08/17/2024 Other hammer toe(s) (acquired), right foot (ICD-10 - M20.41) 08/17/2024 Acute gout of left foot, unspecified cause (ICD-10 - M10.9) 08/17/2024 Edema, lower extremity (ICD-10 - R60.0) 06/02/2024 Atherosclerosis of [place] artery of both lower extremities, with unspecified presence of clinical manifestation (ICD-10 - I70.203) 03/16/2024 Tinea unguium (ICD-10 - B35.1) 06/02/2024 Tinea unguium (ICD-10 - B35.1) 03/16/2024 Pain in right toe(s) (ICD-10 - M79.674) 08/17/2024 Atherosclerosis of [place] artery of both lower extremities, with unspecified presence of clinical manifestation (ICD-10 - I70.203) 06/02/2024 Pain in right toe(s) (ICD-10 - M79.674) 08/17/2024 Tinea unguium (ICD-10 - B35.1) 03/16/2024 Pain in left toe(s) (ICD-10 - M79.675) 06/02/2024 Pain in left toe(s) (ICD-10 - M79.675) 08/17/2024 Pain in right toe(s) (ICD-10 - M79.674) 08/17/2024 Pain in left toe(s) (ICD-10 - M79.675) 06/02/2024 Other hammer toe(s) (acquired), left foot (ICD-10 - M20.42) 08/17/2024 Other hammer toe(s) (acquired), left foot (ICD-10 - M20.42) 08/17/2024 Plantar fascial fibromatosis (ICD-10 - M72.2) Plan Of Treatment Pending Test Test Name Order Date *Uric Acid, Serum 08/17/2024 ESR 08/17/2024 X ray : Foot, left 3V 08/17/2024 Next Appt Details Provider Name:Shawanda marquez, 01/05/2025 03:00:00 PM, [address] [facility], [place], [address], Insurance Providers Payer Name Payer Address Payer Phone Subscriber Number Group Number Insured Name Patient Relationship to Insured Coverage Start Date Coverage End Date Medicare [facility] [address] [place] [address] [phone] [id number] Ramsey Brown Self - patient is the insured [facility] Medicare Complete [address] [address] [place] [address] [id number] Ramsey Brown Self - patient is the insured Medical (General) History Medical History History ICD Code Anxiety Back,Hip,and Knee pain Cancer covid-19 Headaches/Migraines Heart disease Poor circulation Measles Mumps Chicken pox Joint implants/screws Surgical History Surgery Date(Month/Year) hernia knee replacement hip replacement 2021 mass in breast
--- OUTSIDE RECORDS SUMMARY | 2024-11-19 13:37 | XMS_ITS ---
Author Organization [facility] Address [address] [place] [address] Care Team Providers Care Video Game Creator Name Role Phone Rob Doshi Primary Care Provider Unav ailable Shawanda Montaño Unavailable [phone] REASON FOR VISIT same day rs 11/16/24 Encounters Encounter Location Date Provider Diagnosis [address] [address] 11/16/2024 Shawanda Montaño Plan Of Treatment Next Appt Details Provider Name:Shawanda marquez, 01/05/2025 03:00:00 PM, [address] [place] [address], [phone], Progress Notes * Ramsey ALFREDDOB:1945 (79 yo M)Acc No.[id number]:11/16/2024 Patient:?Ramsey ALFRED :1945???Age:79 Y???Sex:Male Address: [address], [place], [address] * true * Date:? Generated for Printi ng/Faxing/eTransmitting on:?11/19/2024 01:37 PM EST
--- OUTSIDE RECORDS SUMMARY | 2024-11-19 13:37 | XMS_ITS ---
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 Name Role Phone Rob Doshi Primary Care Provider Unav ailable Shawanda Montaño Unavailable [phone] Medications Medication SIG (Take, Route, Frequency, Duration) Notes Start Date End Date Status Orthopedic Extra Depth Shoes With Custom Heat Molded Multidensity Innersoles 1 Pair shoes with 3 Pair custom heat molded innersoles Wear Daily for 365 days 06/02/2024 Active Metoprolol Tartrate 50 MG 1 tablet with food Orally Twice a day Active Tamsulosin HCl 0.4 MG 1 capsule Orally O nce a day Active Nitroglycerin 0.4 MG as directed Sublingual Active Cephalexin 500 MG 1 capsule Orally Fou r times a day Not-Taking Furosemide 80 MG 1 tablet Orally Once a day Active Rosuvastatin Calcium 40 MG 1 tablet Oral ly Once a day Active Jantoven 5 MG 1 tablet Orally Once a day Active Finasteride 5 MG 1 tablet Orally Once a day Active Encounters Encounter Location Date Provider Diagnosis [facility] [address] [place] [address] 11/16/2024 Shawanda Montaño Plan Of Treatment Next Appt Details Provider Name:Shawanda marquez, 01/05/2025 03:00:00 PM, [address] [place] [address], [phone], Progress Notes * Ramsey ALFREDDOB:1945 (79 yo M)Acc No.[id number]:11/16/2024 Progress Note Patient:Ramsey DAS Provider:?Shawanda Montaño DPM :1945???Age:79 Y???Sex:Male Izaiah e:11/16/2024 Address:[address] [place] [address], [id number] Pcp:Rob Hussein NP-AN Subjective: * Chief Complaints: * ??? * HPI: ???At Risk footcare:?Pt States Last PCP Visit:?Date?04/12/2024 * Medical History:?Anxiety, Ba ck,Hip,and Knee pain, Cancer, Covid-19, Headaches/Migraines, Heart disease, Poor circulation, Measles, Mumps, Chicken pox, Joint implants/screws. * Medications:?Taking Nitrogly cerin 0.4 MG Tablet Sublingual as directed Sublingual , Taking Tamsulosin HCl 0.4 MG Capsule 1 capsule Orally Once a day , Taking Finasteride 5 MG Tablet 1 tablet Orally Once a day , Taking Jantoven 5 MG Tablet 1 tablet Orally Once a day , Taking Rosuvastatin Calcium 40 MG Tablet 1 tablet Orally Once a day , Taking Furosemide 80 MG Tablet 1 tablet Orally Once a day , Taking Metoprolol Tartrate 50 MG Tablet 1 tablet with food Orally Twice a day , Taking Orthopedic Extra Depth Shoes With Custom Heat Molded Multidensity Innersoles 1 Pair shoes with 3 Pair custom heat molded innersoles Wear Daily , Not-Taking/PRN Cephalexin 500 MG Capsule 1 capsule Orally Four times a day Objective: * Vitals:? Assessment: Plan: * Treatment: * Images: * The named appointment provid er may or may not be the originator of this progress note, and it is not deemed complete until electronically signed by the appointment provider. Sign off status: Pending * Provider:?Shawanda Montaño DPM Date:?05/2025 Generated for Sebastian rodriguez/Evangelista/Radha on:?11/19/2024 01:37 PM EST History and Physical Notes * HPI (History of Present Illness) Category Sub-Category Detail Notes Category Not es At Risk footcare Pt States Last PCP Visit: Date: 4
--- OUTSIDE RECORDS SUMMARY | 2024-11-19 13:37 | XMS_ITS ---
Author Organization [facility] Address [address] [place] [address] Care Team Providers Care Physician'S Aide Name Role Phone Rob Doshi Primary Care Provider Unav ailable Shawanda Montaño [phone] REASON FOR VISIT Lab results Encounters Encounter Location Date Provider Diagnosis [address] [address] 09/01/2024 Shawanda Montaño Plan Of Treatment Next Appt Details Provider Name:Shawanda marquez, 01/05/2025 03:00:00 PM, [address] [place] [address], [phone], Progress Notes * Ramsey ALFREDDOB:1945 (79 yo M)Acc No.[id number]:09/01/2024 Patient:?Ramsey Alfred :1945???Age:79 Y???Sex:Male Address: [address], [place], [address] * true * Date:? Generated for Printi ng/Facarrig/eTransmitting on:?11/19/2024 01:37 PM EST
--- NOTE | 2024-11-19 13:47 | AM.OFFWIN_ITS ---
Intake Vital Signs 11/19/24 13:56 Weight 199 lb BP 140/80 H Blood Pressure Location Lt brachial Position Sitting Pulse 100 Pulse Source Pulse Oximeter Pulse Oximetry (%) 95 Oxygen Delivery Method Room Air Intake Visit Reasons: EP stitch removal Intake Note: Patient here to have stitched removed which were placed about 2 weeks ago. Patient Tobacco Use Status: Former Tobacco user Allergies No Known Allergies Allergy (Verified 11/19/24 13:56) Do you need a note to return to daycare/school/sports/work: No HPI HPI Comments History of Present Illness Details History of Present Illness - The patient is an 79-year-old male pre senting with a scalp laceration following a fall. - The fall resulted in the patient hitti ng his head at his brother?s house, necessitating an emergency room visit on November 07. - Management included the application of Steri-Strips for a scalp laceration without using stitches. - The patient experienced significant ec chymosis on the arm and face due to anticoagulant use. - Imaging at the time showed no acute in tracranial injuries or cervical injuries. - The patient states that there was no l oss of consciousness. - The primary purpose of this visit is t o assess the scalp laceration and remove the Steri-Strips. Physical Exam General: Cooperative, desheveled, comfortable, no acute distress and well developed Orientation: Patient oriented x3 Limitations: No limitations Head: Scalp laceration with SteriStrips with crusting of blood, once removed, small laceration noted, no drainage, warmth or erythema noted on exam. Ears: Hearing grossly normal bilaterally Nose: Normal external nose present Face and sinus: left side significant ecchymosis noted Eyes: Appearance normal, both eyes and all related structures Neck: Normal visual inspection and Yes full ROM Respiratory: Normal respiratory effort and able to speak in complete sentences. Skin: no rashes or lesions noted Neuro: Patient oriented x3 [facility] Medical History CARA (acute kidney injury) Kidney stone Kidney cysts Chronic edema HTN (hypertension) Pulmonary HTN Skin cancer BPH (benign prostatic hyperplasia) Osteoarthritis Paroxysmal A-fib Social History Housing: Apartment Patient Tobacco Use Status: Former Tobacco user Tobacco use type: Cigarette e-Cigarette/Vaping Use: Never Used Second Hand Smoke Exposure: No service: Yes Current occupational status: retired Cognitive needs: No Hearing needs: No Vision needs: No Review of Systems Const All systems reviewed & are unremarkable except as noted in HPI and below Physical Exam Vital Signs: Last Vital Signs Pulse 100 11/19/24 13:56 BP 140/80 H 11/19/24 13:56 Pulse Ox 95 11/19/24 13:56 Oxygen Delivery Method Room Air 11/19/24 13:56 Assessment & Plan Assessment & Plan (1) Visit for wound check: Code(s): Z51.89 - Encounter for other specified aftercare Plan: Removal of the Steri-Strips from the scalp laceration with no issues. Subsequent cleanliness preservation with bacitracin application and a bandaid. The patient should apply bacitracin and cover with a bandage once daily for the next few days, with the aim of open air exposure for optimal healing thereafter. Monitoring for signs of bleeding is recommended due to the patient?s anticoagulant use, although no excessive or unexpected bleeding is currently observed. Routine care and activities may resume following the outlined wound management approach. Patient was informed and verbally consented to the use of an ambient scribe for clinic note documentation during this visit. Coding Level of Care Code Est Pt Level 3 (13475) Diagnoses Visit for wound check Z51.89
[2024-11-19 13:56] VITALS: BP 140/80; PULSE 100; O2SAT 95
== END 2024-11-19 14:46 | disposition home or self-care (01) ==
PROVIDERS: PCP Nurse Practitioner Family; Visit Provider Physician Assistant
DX: Z51.89 Encounter for other specified aftercare (principal)

== ENCOUNTER → 2024-11-19 13:35 | Outpatient (BNVA) | payer MEDICARE, SELFPAY | PROVIDERS: PCP Nurse Practitioner Family; Visit Provider Physician Assistant | DX: Z48.02 Encounter for removal of sutures (principal); Z51.89 Encounter for other specified aftercare | CPT/HCPCS: 99212 ==

== ENCOUNTER 2024-12-14 10:59 | Outpatient (REF) | payer MEDICARE, SELFPAY ==
--- OUTSIDE RECORDS SUMMARY | 2024-12-14 11:55 | XMS_ITS | Encounter Summary ---
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 Name Role Phone Rob Hussein NP Primary Care Provider Encounter Details Date Type Department Care Team (Latest Contact Info) Description 12/06/2024 Anticoagulation - Warfarin Visit [facility] [address] [facility] [address] [place] [phone] Joana Leggett MD [address] [place] [address] Atrial fibrillation, unspecified type (CMS/HCC) (Primary Dx) Social History Tobacco Use Types Packs/Day Years Used Date Smoking Tobacco: Former Smokeless Tobacco: Never Alcohol Use Standard Drinks/Week Comments Never 0 (1 standard drink = 0.6 oz pur e alcohol) Sex and Gender Information Value Date Recorded Sex Assigned at Not on file Gender Identity Not on file Sexual Orientation Not on file Job Start Date Occupation Industry Not on file Not on file Not on file documented as of this encounter Progress Notes * Aaron Smith MA - 12/06/2024 2:27 PM EST Patient aware of instructions documented in this encounter Plan of Treatment Upcoming Encounters Date Type Department Care Team (Late st Contact Info) Description 01/14/2025 9:20 AM EST Office Visit [facility] [address] [facility] [address] [place] [phone] Joana Leggett MD [address] [place] [address] documented as of this encounter Visit Diagnoses Diagnosis Atrial fibrillation, unspecified type (CMS/HCC)- Primary documented in this encounter Care Teams Gas Plumbing Inspector Relationship Specialty Start Date End Date Rob Hussein NP [address] [place], [place] PCP - General 04/19/22 documented as of this encounter
--- OUTSIDE RECORDS SUMMARY | 2024-12-14 11:55 | XMS_ITS | Clinical Summary ---
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 Active metoprolol tartrate (LOPRESSOR) 50 mg tablet Take 1 tablet (50 mg total) by mouth 2 (two) times a day. Active furosemide (LASIX) 80 mg tablet Take 1 tablet (80 mg total) by mouth 1 (one) time each day. Active finasteride (PROSCAR) 5 mg tablet Take 1 tablet (5 mg total) by mouth 1 (one) time each day. Active cephalexin (KEFTAB) 500 mg tablet Take 4 Tablets by mouth as needed (as directed below). Take 2 caps 1 hr prior to procedure, then 2 caps four hrs after procedure 05/23/2022 Active B6/folic/B12/coffee /phosphatid (NEURIVA PLUS ORAL) Take by mouth. A ctive Jantoven 4 mg tablet TAKE ONE TABLET BY MOUTH DAILY DIRECTED BY [facility] Active rosuvastatin (CRESTOR) 40 mg tablet Take 1 tablet (40 mg total) by mouth 1 (one) time each day. Active warfarin (COUMADIN) 5 mg tablet Take 1 to 1.5 tablets daily as directed by [facility] 11/16/2021 Active tamsulosin (FLOMAX) 0.4 mg 24 hr capsule Take 1 Capsule by mouth daily. Take 30 mins after same meal every day. 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 He should continue maximum statin therapy on pravastatin, aspirin, and beta-brad. He does need to have his lipids updated as well. Nuclear stress testing and abnormal EKG at baseline, March 2022 demonstrated a small mild apical lateral ischemia defect with no fixed defect to suggest previous infarct. He would certainly need to notify us if he is having any symptoms of angina. Continue risk factor modification. Heart failure with preserved ejection fraction 0 12/19/2021 Overview (10/03/2024): Last Assessment & Plan: He has been labeled as heart failure preserved ejection fraction in the setting of lymphedema/venous insufficiency. He heeded warning to follow a low-sodium diet and reduce to 1500 mg a day and lost 30 pounds over the last 6 to 7 months according to his account. I am quite concerned that there are no electrolytes to evaluate renal function and chemistries in the setting of 120 mg of Lasix being continued. He is having no symptoms to suggest he is severely volume depleted. Nonetheless, I emphasized that he absolutely needs to follow through with blood work so that we can assess his diuretic dose and volume status more carefully. He agrees to do so with his next PT/INR this month. Meantime he is congratulated on his excellent efforts at reducing sodium content, he is not drinking more than 2 quarts of fluid per day, he should weigh himself daily, he is not describing orthopnea or unusual dyspnea, he is trying to walk in the supermarket for exercise, he should contact us if he is gaining fluid weight can consider echocardiogram in 2023. Lymphedema 12/19/2021 Osteoarthritis 12/19/2021 Abnormal EKG 12/17/2021 Testicular pain 06/01/2019 Recurrent left inguinal hernia 03/18/2019 Encounters Date Type Department Care Team Description 12/14/2024 Anticoagulation - Warfarin Visit [facility] [address] [place] [address] Joana Leggett MD Atrial fibrillation, unspecified type (CMS/HCC) (Primary Dx) 12/06/2024 Anticoagulation - Warfarin Visit [facility] [address] [place] [address] Joana Leggett MD Atrial fibrillation, unspecified type (CMS/HCC) (Primary Dx) 11/26/2024 Telephone [facility] [address] [facility] [address] [place] [address] Joana Leggett MD No Show 11/15/2024 Anticoagulation - Warfarin Visit [facility] [address] [place] [address] Joana Leggett MD Atrial fibrillation, unspecified type (CMS/HCC) (Primary Dx) 11/08/2024 Anticoagulation - Warfarin Visit [facility] [address] [place] [address] Joana Leggett MD Atrial fibrillation, unspecified type (CMS/HCC) (Primary Dx) 11/07/2024 11:01 AM EST - 11/07/2024 4:17 PM [facility] Emergency [facility] Emergency [address] [place] [address] Ammon Anne MD Cheng, Ting Ho Danny, DO Scalp laceration, initial encounter (Primary Dx) Discharge Disposition: Home or Self Care 10/26/2024 Anticoagulation - Warfarin Visit [facility] [address] [place] [address] Joana Leggett MD Atrial fibrillation, unspecified type (CMS/HCC) (Primary Dx) 10/12/2024 Anticoagulation - Warfarin Visit [facility] [address] [place] [address] Joana Leggett MD Atrial fibrillation, unspecified type (CMS/HCC) (Primary Dx) 10/06/2024 Anticoagulation - Warfarin Visit [facility] [address] [place] [address] Joana Leggett MD Atrial fibrillation, unspecified type (CMS/HCC) (Primary Dx) 10/01/2024 Anticoagulation - Warfarin Visit [facility] [address] [place] [address] Joana Leggett MD Atrial fibrillation, unspecified type (CMS/HCC) [I48.91] (Primary Dx) 09/21/2024 Anticoagulation - Warfarin Visit [facility] [address] [place] [address] Joana Leggett MD Atrial fibrillation, unspecified type (CMS/HCC) [I48.91] (Primary Dx) 09/16/2024 Anticoagulation - Warfarin Visit [facility] [address] [place] [address] Joana Leggett MD Atrial fibrillation, unspecified type (CMS/HCC) [I48.91] (Primary Dx) from Last 3 Months Surgical History Surgery Date Site/Laterality Comments TOTAL KNEE ARTHROPLASTY PROCEDURE: AK ARTHRP KNE CONDYLE&PLATU MEDIAL&LAT COMPARTMENTS Medical History Medical History Date Comments Hyperlipidemia DX:Hyperlipidemi a Essential hypertension DX:Essent ial hypertension Chest pain DX:Chest pain Electrolyte disorder DX:Electrol yte disorder Hyperthyroidism DX:Hyperthyroidi sm Anemia DX:Anemia Family History Medical History Relation Name Comments Asthma Brother 1 Diabetes Brother 2 Other: cancer Father unknown Other: heart trouble Father Relation Name Status Comments Brother 1 Brother 2 Alive Father Social History Tobacco Use Types Packs/Day Years [...] file Not on file Not on file Obstetrics History Last Filed Vital Signs Vital Sign Reading Time Taken Comments Blood Pressure 106/50 11/07/2024 3:26 PM EST Pulse 66 11/07/2024 3:26 PM EST Temperature 36.7 ??C (98 ??F) 11/07/2024 3:26 PM EST Respiratory Rate 20 11/07/2024 11:09 AM EST Oxygen Saturation 100% 11/07/2024 3:26 PM EST Inhaled Oxygen Concentration - - Weight 90.7 kg (200 lb) 11/07/2024 11:09 AM EST Height 165.1 cm (5' 5 ) 11/07/2024 11:09 AM EST Body Mass Index 33.28 11/07/2024 11:09 AM EST Plan of Treatment Upcoming Encounters Date Type Department Care Team (Late st Contact Info) Description 01/14/2025 9:20 AM EST Office Visit [facility] [address] [address] Joana Leggett MD [address] [place] [address] Health Maintenance Due Date Last Done Comments Zoster Vaccines (1 of 2) 1993 RSV Immunization Patients 60+ Years Old (1 - 1-dose 75+ series) 2018 Depression Screening 10/12/2022 Falls Risk Assessment 10/12/2022 Social Influencers of Health Screening 10/12/2022 Medicare Annual Wellness Visit 05/05/2024 05/05/2023 COVID-19 Vaccine ( season) 2024 05/29/2022, 09/27/2021, 01/14/2021, Additional history exists Influenza Vaccine (#1) 2024 , 09/27/2021, 10/03/2020, Additional history exists Hypertension/CHF/CAD Annual BMP Blood Test 11/07/2025 11/07/2024, 09/02/2023 Cholesterol Screening (Lipid Panel) 09/02/2028 09/02/2023 DTaP,Tdap,and Td Vaccines (2 - Td or Tdap) 03/19/2029 03/19/2019 Pneumococcal Vaccine: 65+ Years Completed 01/05/2019, 04/25/2017 HIB Vaccines Aged Out No longer eligi ble based on patient's age to complete this topic HPV Vaccines Aged Out No longer eligi ble based on patient's age to complete this topic Hepatitis A Vaccines Aged Out No long er eligible based on patient's age to complete this topic Hepatitis B Vaccines Aged Out No long er eligible based on patient's age to complete this topic IPV Vaccines Aged Out No longer eligi ble based on patient's age to complete this topic MMR Vaccines Aged Out No longer eligi ble based on patient's age to complete this topic Meningococcal ACWY Vaccine Aged Out N o longer eligible based on patient's age to complete this topic RSV Immunization Patients Under 20 months Aged Out No longer eligible based on patient's age to complete this topic Varicella Vaccines Aged Out No longer eligible based on patient's age to complete this topic Procedures Procedure Name Priority Date/Time Associated Diagnosis Comments PROTHROMBIN TIME WITH INR Routine 12/14/2024 10:28 AM EST Atrial fibrillation (CMS/HCC) PROTHROMBIN TIME WITH INR Routine 12/06/2024 9:50 AM EST Atrial fibrillation (CMS/HCC) PROTHROMBIN TIME WITH INR Routine 11/12/2024 1:31 PM EST Atrial fibrillation (CMS/HCC) XR SHOULDER 2+ VIEWS LEFT STAT 11/07/2024 1:[address] CERVICAL SPINE WO CONTRAST STAT 11/07/2024 12:[address] HEAD WO CONTRAST STAT 11/07/2024 1 2:55 PM EST URINALYSIS WITH REFLEX MICROSCOPIC STAT 11/07/2024 12:17 PM EST URINALYSIS WITH REFLEX MICROSCOPIC STAT 11/07/2024 12:17 PM EST CBC WITH AUTO DIFFERENTIAL STAT 11/07/2024 11:45 AM EST PROTHROMBIN TIME WITH INR STAT 11/07/2024 11:45 AM EST COMPREHENSIVE METABOLIC PANEL STAT 11/07/2024 11:45 AM EST CBC AND DIFFERENTIAL STAT 11/07/2024 11:45 AM EST PROTHROMBIN TIME WITH INR Routine 10/26/2024 8:33 AM EST Atrial fibrillation (CMS/HCC) PROTHROMBIN TIME WITH INR Routine 10/12/2024 11:40 AM EST Atrial fibrillation (CMS/HCC) PROTHROMBIN TIME WITH INR Routine 10/05/2024 2:29 PM EST Atrial fibrillation (CMS/HCC) PROTHROMBIN TIME WITH INR Routine 10/01/2024 2:00 PM EST Atrial fibrillation (CMS/HCC) PROTHROMBIN TIME WITH INR Routine 09/21/2024 8:08 AM EST Atrial fibrillation (CMS/HCC) PROTHROMBIN TIME WITH INR Routine 09/16/2024 8:29 AM EST Atrial fibrillation (CMS/HCC) LIPID PANEL Routine 09/02/2023 from Last 3 Months or Most Recently Relevant to Health Maintenance Results * (ABNORMAL) Prothrombin time with INR (12/14/2024 10:28 AM EST) Only the most recent of10 resultswithin the time period is included. Protime 33.0(H) 10.6 - 13.9 sec LAB COAGULATION METHOD 12/14/2024 11:18 AM EST [facility] INR 2.7 LAB COAGULATION METHOD 12/14/2024 11:18 AM EST [facility] Blood Venous blood specimen / Unknown Venipuncture / Unknown 12/14/2024 10:28 AM EST 12/14/2024 11:06 AM EST Joana Leggett MD LAB BLOOD ORDERABLES [place] ([facility]) [facility] [address] [place] [address], [place] [phone] * XR Shoulder 2+ Views Left (11/07/2024 1:02 PM EST) Anatomical Region Laterality Modality Upper Extremities, Shoulder Left Radi ographic Imaging 11/07/2024 1:22 PM EST Impressions 11/07/2024 1:23 PM EST No acute fracture or dislocation. Mild is cephalic migration of humeral head likely related to rotator cuff degeneration or tear. -------- FINAL REPORT -------- Dictated By: Oli Roberst Dictated Date: 11/07/2024 13:22 ET Assigned Physician: Oli Roberts Reviewed and Electronically Signed By: Oli Roberts Signed Date: 11/07/2024 13:23 ET Workstation ID: [id number] Transcribed By: Self Edit Transcribed Date: 11/07/2024 13:22 ET Narrative 11/07/2024 1:23 PM EST EXAMINATION: Left shoulder 3 views. CLINICAL INDICATION: Fall. Pain. COMPARISON: None. FINDINGS: There is diminished before meals and coronal joint space. No visible acute fracture or dislocation seen. There is mild cephalic migration of humeral head in relation to glenoid likely or cuff tear or degeneration. The soft tissues are normal. There are no loose bodies. Procedure Note Oli Roberts MD - 11/07/2024 EXAMINATION: Left shoulder 3 views. CLINICAL INDICATION: Fall. Pain. COMPARISON: None. FINDINGS: There is diminished before meals and coronal joint space. Novisible acute fracture or dislocation seen. There is mild cephalicmigration of humeral head in relation to glenoid likely or cuff tear ordegeneration. The soft tissues are normal. There are no loose bodies. IMPRESSION: No acute fracture or dislocation. Mild is cephalic migration of humeral head likely related to rotator cuffdegeneration or tear. -------- FINAL REPORT -------- Dictated By: Oli Roberts Dictated Date: 11/07/2024 13:22 ET Assigned Physician: Oli Roberts Reviewed and Electronically Signed By: Oli Roberts Signed Date: 11/07/2024 13:23 ET Workstation ID: [id number] Transcribed By: Self Edit Transcribed Date: 11/07/2024 13:22 ET Ammon Anne MD IMG XR PROCEDURES * CT Cervical Spine wo Contrast (11/07/2024 12:55 PM EST) Anatomical Region Laterality Modality Spine, C-spine Computed Tomogra phy 11/07/2024 1:22 PM EST Narrative 11/07/2024 1:[address] cervical spine without contrast is dictated with CT brain without contrast -------- FINAL REPORT -------- Dictated By: Oli Roberts Dictated Date: 11/07/2024 13:22 ET Assigned Physician: Oli Roberts Reviewed and Electronically Signed By: Oli Roberts Signed Date: 11/07/2024 13:22 ET Workstation ID: [id number] Transcribed By: Self Edit Transcribed Date: 11/07/2024 13:22 ET Procedure Note Oli Roberts MD - 11/07/2024 CT cervical spine without contrast is dictated with CT brain withoutcontrast -------- FINAL REPORT -------- Dictated By: Oli Roberts Dictated Date: 11/07/2024 13:22 ET Assigned Physician: Oli Roberts Reviewed and Electronically Signed By: Oli Roberts Signed Date: 11/07/2024 13:22 ET Workstation ID: [id number] Transcribed By: Self Edit Transcribed Date: 11/07/2024 13:22 ET Ammon Anne MD [facility] CT PROCEDURES * CT Head wo Contrast (11/07/2024 12:55 PM EST) Anatomical Region Laterality Modality Head and Neck Computed Tomogra phy 11/07/2024 1:13 PM EST Impressions 11/07/2024 1:21 PM EST Left frontal scalp hematoma without calvarial fracture. No acute intracranial process seen. Reversal of cervical lordosis with grade 1 anterolisthesis C3 over C4 4 and C4 over C5. Degenerative disc changes with moderate ventral spondylosis C5-6, C6-7 and C7-T1 disc levels. No acute fracture or dislocation seen.. -------- FINAL REPORT -------- Dictated By: Oli Roberts Dictated Date: 11/07/2024 13:13 ET Assigned Physician: Oli Roberts Reviewed and Electronically Signed By: Oli Roberts Signed Date: 11/07/2024 13:21 ET Workstation ID: [id number] Transcribed By: Self Edit Transcribed Date: 11/07/2024 13:13 ET Narrative 11/07/2024 1:21 PM EST EXAMINATION: CT brain and CT cervical spine without contrast. CLINICAL INDICATION: Fall, for a laceration. COMPARISON: None. TECHNIQUE: 2.5 mm thin axial and reformatted 3 mm thin sagittal and coronal images of brain were obtained. Subsequently axial 1.25 millimeter thin and reformatted 2 mm thin sagittal and coronal images of cervical spine were obtained. Scanner: [employer] 64 slice VCT Dose reduction technique: ASIR (Adaptive statistical iterative reconstruction) and/or AEC (automated exposure control) Dose: total exam DLP 1519 mGy/cm FINDINGS: BRAIN: There is a left frontal scalp hematoma without calvarial fracture. There is no acute intra-axial, extra-axial bleed, masses or midline shift. There is no acute infarction or lesion. There is no edema. Blandon to white matter differentiation is maintained. The lateral ventricles are symmetrical in size and configuration without enlargement. Bone windows reveal no calvarial abnormality. There i visualized bilateral optic lobe, optic nerves and periorbital soft tissues are normal. S no scalp soft tissue abnormality. Bilateral paranasal sinuses and mastoid air cells are well-aerated. CERVICAL SPINE: There is reversal of cervical lordosis. The vertebral heights are normal. There is grade 1 anterolisthesis C3 over C4 and C4 over C5. Loss of C5- C6, C6-7 and C7-T1 disc height with moderate ventral spondylosis is noted. There is a rotary subluxation of the C1-C2 alignment. The cervical-medullary junction is normal. No visible acute fracture, dislocation or subluxation seen at any of the disc levels. There is moderate C2-3, C3-4, right C4-5, C5-6 facet joint arthropathy and hypertrophy. The prevertebral and paravertebral soft tissues are normal. The airway is widely patent. There is bilateral apical pleural thickening and mild emphysematous appearing lung apices. Procedure Note Oli Roberts MD - 11/07/2024 EXAMINATION: CT brain and CT cervical spine without contrast. CLINICAL INDICATION: Fall, for a laceration. COMPARISON: None. TECHNIQUE: 2.5 mm thin axial and reformatted 3 mm thin sagittal andcoronal images of brain were obtained. Subsequently axial 1.25 millimeterthin and reformatted 2 mm thin sagittal and coronal images of cervicalspine were obtained. Scanner: [employer] 64 slice VCT Dose reduction technique: ASIR (Adaptive statistical iterativereconstruction) and/or AEC (automated exposure control) Dose: total exam DLP 1519 mGy/cm FINDINGS: BRAIN: There is a left frontal scalp hematoma without calvarial fracture.There is no acute intra-axial, extra-axial bleed, masses or midline shift.There is no acute infarction or lesion. There is no edema. Blandon to whitematter differentiation is maintained. The lateral ventricles aresymmetrical in size and configuration without enlargement. Bone windowsreveal no calvarial abnormality. There i visualized bilateral optic lobe,optic nerves and periorbital soft tissues are normal. S no scalp softtissue abnormality. Bilateral paranasal sinuses and mastoid air cells arewell-aerated. CERVICAL SPINE: There is reversal of cervical lordosis. The vertebralheights are normal. There is grade 1 anterolisthesis C3 over C4 and C4over C5. Loss of C5- C6, C6-7 and C7-T1 disc height with moderate ventralspondylosis is noted. There is a rotary subluxation of the C1-[id number]. The cervical-medullary junction is normal. No visible acutefracture, dislocation or subluxation seen at any of the disc levels. Thereis moderate C2-3, C3-4, right C4-5, C5-6 facet joint arthropathy andhypertrophy. The prevertebral and paravertebral soft tissues are normal.The airway is widely patent. There is bilateral apical pleural thickeningand mild emphysematous appearing lung apices. IMPRESSION: Left frontal scalp hematoma without calvarial fracture. No acuteintracranial process seen. Reversal of cervical lordosis with grade 1 anterolisthesis C3 over C4 4and C4 over C5. Degenerative disc changes with moderate ventral spondylosis C5-6, C6-7 andC7-T1 disc levels. No acute fracture or dislocation seen.. -------- FINAL REPORT -------- Dictated By: Oli Roberts Dictated Date: 11/07/2024 13:13 ET Assigned Physician: Oli Roberts Reviewed and Electronically Signed By: Oli Roberts Signed Date: 11/07/2024 13:21 ET Workstation ID: [id number] Transcribed By: Self Edit Transcribed Date: 11/07/2024 13:13 ET Ammon Anne MD [facility] [place] CT PROCEDURES * (ABNORMAL) Urinalysis with reflex microscopic (11/07/2024 12:17 PM EST) Specific Starr Urine 1.012 1.003 - 1.030 LAB URINALYSIS - AUTOMATED METHOD 11/07/2024 12:44 PM [facility] pH, Urine 7.5 5.0 - 8.0 pH LAB URINALYSIS - AUTOMATED METHOD 11/07/2024 12:44 PM [facility] Leukocytes, Urine Negative Negative LAB URINALYSIS - AUTOMATED METHOD 11/07/2024 12:44 PM [facility] Nitrite, Urine Negative Negative LAB URINALYSIS - AUTOMATED METHOD 11/07/2024 12:44 PM [facility] Protein, Urine 100(A) <=Trace mg/dL LAB URINALYSIS - AUTOMATED METHOD 11/07/2024 12:44 PM [facility] Glucose, Urine Negative Negative mg/dL LAB URINALYSIS - AUTOMATED METHOD 11/07/2024 12:44 PM [facility] Ketones, Urine Negative Negative mg/dL LAB URINALYSIS - AUTOMATED METHOD 11/07/2024 12:44 PM [facility] Urobilinogen, Urine 1.0 0.2 - 1.0 mg/dL LAB URINALYSIS - AUTOMATED METHOD 11/07/2024 12:44 PM [facility] Bilirubin, Urine Negative Negative LAB URINALYSIS - AUTOMATED METHOD 11/07/2024 12:44 PM [facility] Blood, Urine Trace(A) Negative LAB URINALYSIS - AUTOMATED METHOD 11/07/2024 12:44 PM [facility] RBC, Urine 6.3(H) 0 - 4 /HPF LAB URINALYSIS - AUTOMATED METHOD 11/07/2024 12:44 PM [facility] WBC, Urine 2.8 0 - 4 /HPF LAB URINALYSIS - AUTOMATED METHOD 11/07/2024 12:44 PM [facility] Squamous Epithelial, Urine 40 0 - 60 /LPF LAB URINALYSIS - AUTOMATED METHOD 11/07/2024 12:44 PM [facility] Bacteria, Urine Negative Negative /HPF LAB URINALYSIS - AUTOMATED METHOD 11/07/2024 12:44 PM [facility] Hyaline Casts, Urine 2.1 0 - 3 /LPF LAB URINALYSIS - AUTOMATED METHOD 11/07/2024 12:44 PM [facility] Urine Urine specimen obtained by clean catch procedure / Unknown Non-blood Collection / Unknown 11/07/2024 12:17 PM EST 11/07/2024 12:35 PM EST Ammon Anne MD LAB URINE ORDERAB LES [facility] [address] [place] [address], * (ABNORMAL) CBC auto differential (11/07/2024 11:45 AM EST) [facility] WBC 6.7 4.8 - 10.8 K/mcL LAB HEMETOLOGY METHOD 11/07/2024 12:43 PM [facility] RBC 4.40(L) 4.50 - 5.50 M/mcL LAB HEMETOLOGY METHOD 11/07/2024 12:43 PM [facility] Hemoglobin 12.2(L) 13.5 - 17.5 g/dL LAB HEMETOLOGY METHOD 11/07/2024 12:43 PM [facility] Hematocrit 38.9(L) 42.0 - 54.0 % LAB HEMETOLOGY METHOD 11/07/2024 12:43 PM [facility] MCV 89.4 79.0 - 98.0 FL LAB HEMETOLOGY METHOD 11/07/2024 12:43 PM [facility] MCH 28.0 27.0 - 32.0 pcg LAB HEMETOLOGY METHOD 11/07/2024 12:43 PM [facility] MCHC 31.4(L) 32.0 - 37.0 g/dL LAB HEMETOLOGY METHOD 11/07/2024 12:43 PM [facility] RDW 16.7(H) 11.0 - 15.0 % LAB HEMETOLOGY METHOD 11/07/2024 12:43 PM [facility] Platelets 188 130 - 400 K/mcL LAB HEMETOLOGY METHOD 11/07/2024 12:43 PM [facility] MPV 11.0 7.0 - 11.0 FL LAB HEMETOLOGY METHOD 11/07/2024 12:43 PM [facility] NRBC 0.0 <1.0 % LAB HEMETOLOGY METHOD 11/07/2024 12:43 PM [facility] NRBC Absolute 0.00 <0.10 K/mcL LAB HEMETOLOGY METHOD 11/07/2024 12:43 PM [facility] Neutrophils Relative 72.9 % LAB HEMETOLOGY METHOD 11/07/2024 12:43 PM [facility] Lymphocytes Relative 13.5 % LAB HEMETOLOGY METHOD 11/07/2024 12:43 PM [facility] Monocytes Relative 9.9 % LAB HEMETOLOGY METHOD 11/07/2024 12:43 PM [facility] Eosinophils Relative 2.5 % LAB HEMETOLOGY METHOD 11/07/2024 12:43 PM [facility] Basophils Relative 0.9 % LAB HEMETOLOGY METHOD 11/07/2024 12:43 PM [facility] Immature Granulocytes Relative 0.3 % LAB HEMETOLOGY METHOD 11/07/2024 12:43 PM [facility] Neutrophils Absolute 4.87 1.50 - 7.00 K/mcL LAB HEMETOLOGY METHOD 11/07/2024 12:43 PM [facility] Lymphocytes Absolute 0.90(L) 1.00 - 5.00 K/mcL LAB HEMETOLOGY METHOD 11/07/2024 12:43 PM [facility] Monocytes Absolute 0.66 0.20 - 1.00 K/mcL LAB HEMETOLOGY METHOD 11/07/2024 12:43 PM [facility] Eosinophils Absolute 0.17 0.00 - 0.50 K/mcL LAB HEMETOLOGY METHOD 11/07/2024 12:43 PM [facility] Basophils Absolute 0.06 0.00 - 0.20 K/mcL LAB HEMETOLOGY METHOD 11/07/2024 12:43 PM [facility] Immature Granulocytes Absolute 0.02 0.00 - 0.03 K/mcL LAB HEMETOLOGY METHOD 11/07/2024 12:43 PM [facility] Blood Venous blood specimen / Unknown Venipuncture / Unknown 11/07/2024 11:45 AM EST 11/07/2024 12:33 PM EST Ammon Anne MD LAB BLOOD ORDERAB LES [facility] [address] [place] [address], [place] [phone] * (ABNORMAL) Comprehensive metabolic panel (11/07/2024 11:45 AM EST) Sodium 138 133 - 145 mmol/L LAB CHEMISTRY METHOD 11/07/2024 1:05 PM [facility] Potassium 3.1(L) 3.5 - 5.5 mmol/L LAB CHEMISTRY METHOD 11/07/2024 1:05 PM [facility] Chloride 100 96 - 110 mmol/L LAB CHEMISTRY METHOD 11/07/2024 1:05 PM [facility] CO2 31 21 - 32 mmol/L LAB CHEMISTRY METHOD 11/07/2024 1:05 PM [facility] Anion Gap 7 3 - 11 LAB CHEMISTRY METHOD 11/07/2024 1:05 PM [facility] Glucose 118(H) 70 - 100 mg/dL LAB CHEMISTRY METHOD 11/07/2024 1:05 PM [facility] BUN 18 5 - 25 mg/dL LAB CHEMISTRY METHOD 11/07/2024 1:05 PM [facility] Creatinine 1.09 0.70 - 1.30 mg/dL LAB CHEMISTRY METHOD 11/07/2024 1:05 PM [facility] eGFR 68 >=60 mL/min/1. 73m2 LAB CHEMISTRY METHOD 11/07/2024 1:05 PM [facility] Comment:Calculation based on the??Chronic Kidney Disease Epidemiology Collaboration (CKD-EPI) equation refit??without adjustment for race. BUN/Creatinine Ratio 16.5 LAB CHEMISTRY METHOD 11/07/2024 1:05 PM [facility] Calcium 9.6 8.5 - 10.5 mg/dL LAB CHEMISTRY METHOD 11/07/2024 1:05 PM [facility] AST (SGOT) 34 10 - 42 unit/L LAB CHEMISTRY METHOD 11/07/2024 1:05 PM [facility] ALT (SGPT) 24 10 - 60 unit/L LAB CHEMISTRY METHOD 11/07/2024 1:05 PM [facility] Alkaline Phosphatase 77 42 - 121 unit/L LAB CHEMISTRY METHOD 11/07/2024 1:05 PM [facility] Total Protein 7.0 6.0 - 8.0 g/dL LAB CHEMISTRY METHOD 11/07/2024 1:05 PM [facility] Albumin 3.5 3.2 - 5.0 g/dL LAB CHEMISTRY METHOD 11/07/2024 1:05 PM [facility] Total Bilirubin 0.7 0.0 - 1.4 mg/dL LAB CHEMISTRY METHOD 11/07/2024 1:05 PM [facility] Blood Venous blood specimen / Unknown Venipuncture / Unknown 11/07/2024 11:45 AM EST 11/07/2024 12:33 PM EST Ammon Anne MD LAB BLOOD ORDERAB LES [facility] [address] [place] [address], * (ABNORMAL) Lipid panel (09/02/2023) LDL/HDL Ratio 3 0 - 4 Triglycerides 88 0 - 150 mg/dL Cholesterol 191 0 - 200 mg/dL HDL 73 40 mg/dL LDL Cholesterol 101(A) 0 - 100 mg/dL Blood Venous blood specimen / Unknown Historical Provider LAB BLOOD ORDERAB LES from Last 3 Months or Most Recently Relevant to Health Maintenance Care Teams Pyrometer Operator Relationship Specialty Start Date End Date Rob Hussein NP [address] [facility] ALAN Garcia PCP - General 04/19/22
--- OUTSIDE RECORDS SUMMARY | 2024-12-14 11:55 | XMS_ITS | Encounter Summary ---
Author Organization [facility] Address [address] [place] [address] Care Team Providers Care Entry Level Web Developer Name Role Phone Rob Hussein NP Primary Care Provider Encounter Details Date Type Department Care Team (Latest Contact Info) Description 12/14/2024 Anticoagulation - Warfarin Visit [facility] Cardiology [facility] - [facility] [address] [phone] Joana Leggett MD [address] [place] [address] Atrial fibrillation, unspecified type (CMS/HCC) (Primary Dx) [...] on file documented as of this encounter Plan of Treatment Upcoming Encounters Date Type Department Care Team (Late st Contact Info) Description 01/14/2025 9:20 AM EST Office Visit [facility] Cardiology [facility] - [facility] [address] [phone] Joana Leggett MD [address] [place] [address] documented as of this encounter Visit Diagnoses Diagnosis Atrial fibrillation, unspecified type (CMS/HCC)- Primary documented in this encounter Care Teams Entry Level Web Developer Relationship Specialty Start Date End Date Rob Hussein NP 262 [facility] [place], [place] PCP - General 04/19/22 documented as of this encounter
--- OUTSIDE RECORDS SUMMARY | 2024-12-14 11:55 | XMS_ITS | Encounter Summary ---
Author Organization [facility] Address [address] [place] [address] Care Team Providers Care Lithographer Helper Name Role Phone Rob Hussein NP Primary Care Provider Encounter Details Date Type Department Care Team (Latest Contact Info) Description 11/15/2024 Anticoagulation - Warfarin Visit [facility] 154 [address] [facility] 154 [place] [phone] Joana Leggett MD [address] [place] [address] Atrial fibrillation, unspecified type (CMS/HCC) (Primary Dx) [...] Progress Notes * Aaron Smith MA - 11/15/2024 8:40 AM EST Patient aware of instructions documented in this encounter Plan of Treatment Upcoming Encounters Date Type Department Care Team (Late st Contact Info) Description 01/14/2025 9:20 AM EST Office Visit [facility] 154 [address] [facility] 154 [place] [phone] Joana Leggett MD [address] [place] [address] documented as of this encounter Visit Diagnoses Diagnosis Atrial fibrillation, unspecified type (CMS/HCC)- Primary documented in this encounter Care Teams Lithographer Helper Relationship Specialty Start Date End Date Rob Hussein NP [address] [place], [place] PCP - General 04/19/22 documented as of this encounter
--- OUTSIDE RECORDS SUMMARY | 2024-12-14 11:55 | XMS_ITS | Encounter Summary ---
Author Organization [facility] Address [address] [place] [address] Care Team Providers Care Housekeeping Room Inspector Name Role Phone Rob Hussein NP Primary Care Provider [phone] Reason for Visit * Reason Onset Date Comments No Show 11/26/2024 Encounter Details Date Type Department Care Team (Late Contact Info) Description 11/26/2024 Telephone [facility] 154 300 [facility] 154 [place] [phone] Joana Leggett MD [address] [place] [address] No Show Social History Tobacco Use Types Packs/Day Years [...] as of this encounter Progress Notes * Keri Hinton MA - 11/26/2024 11:01 AM EST Letter sent with information on no showed appointment and no show policy documented in this encounter Plan of Treatment Upcoming Encounters Date Type Department Care Team (Late Contact Info) Description 01/14/2025 9:20 AM EST Office Visit [facility] Cardiology [facility] [address] [facility] 154 [place] [address] Joana Leggett MD [address] [place] [address] documented as of this encounter Visit Diagnoses Not on filedocumented in this encounter Care Teams Housekeeping Room Inspector Relationship Specialty Start Date End Date Rob Hussein NP [address] [place], [place] PCP - General 04/19/22 documented as of this encounter
[2024-12-14 13:19] LABS: MANUAL DIFF FLAG NO
[2024-12-14 13:30] LABS: Basophils Absolute Auto 0.1 X10*3/uL (0.0-0.2); Basophils Percent Auto 1.2 % (0-2); Eosinophils Absolute Auto 0.2 X10*3/uL (0.0-0.4); Eosinophils Percent Auto 2.9 % (0-4); Hematocrit 37.4 % (42.0-52.0); Imm Gran Abs Auto 0.01 X10*3/uL (0.00-0.03); Imm Gran Pct Auto 0.2 % (0.0-0.4); Lymphocytes Absolute Auto 1.1 X10*3/uL (1.2-4.9); Lymphocytes Percent Auto 18.2 % (20-40); Mean Corpuscular HGB Conc 32.1 g/dl (31.0-36.0); Mean Corpuscular Volume 87.2 fL (80.0-98.0); Mean Platelet Volume 9.9 fL (9.4-12.4); Monocytes Absolute Auto 0.5 X10*3/uL (0.1-1.2); Monocytes Percent Auto 8.8 % (2-11); Neutrophils Absolute Auto 4.1 x10*3/uL (2.0-8.3); Neutrophils Percent Auto 68.7 % (45-73); Platelet Count 221 X10*3/uL (160-400); Red Blood Count 4.29 X10*6/uL (4.60-5.80); Red Cell Distribution Width 17.3 % (11.0-16.0); White Blood Count 5.9 X10*3/uL (4.8-10.8)
[2024-12-14 13:34] LABS: Appearance Urine Clear; Color Urine Yellow; Glucose Urine UA Negative (Negative); Leukocyte Esterase Urine Negative (Negative); Nitrite Urine Negative (Negative); Specific Gravity - Urine 1.015 (1.005-1.025); Urine Blood Negative (Negative); Urine Ketones Negative (Negative); Urine Protein Negative (Neg-Trace)
[2024-12-14 14:11] LABS: Alanine Aminotransferase 16 U/L (0-40); Albumin Level 3.7 g/dL (3.5-5.0); Alkaline Phosphatase 68 U/L (39-117); Anion Gap 16 (12-20); Aspartate Amino Transferase 31 U/L (5-37); Bilirubin Total 0.8 mg/dL (0.0-1.0); Blood Urea Nitrogen 15 mg/dL (9-16); Calcium 9.2 mg/dL (8.4-10.2); Carbon Dioxide 29 mmol/L (22-29); Chloride 101 mmol/L (96-108); Cholesterol 177 mg/dL (<200); Estimated Glomerular Filt Rate > 60; Glucose Fasting 88 mg/dL (60-99); HDL Cholesterol 70 mg/dL (>40); LDL Cholesterol Calculated 94 mg/dL (<100); Magnesium 2.2 mg/dL (1.6-2.6); Potassium 3.4 mmol/L (3.3-5.1); Sodium 143 mmol/L (135-145); Total Protein 7.4 g/dL (6.5-8.0); Triglycerides 69 mg/dL (<150)
[2024-12-14 14:14] LABS: TSH reflex Free T4 1.72 uIU/mL (0.32-4.0)
== END 2024-12-14 11:00 | disposition home or self-care (01) ==
LOC: HO.HMGCLDS 10:59
PROVIDERS: PCP Nurse Practitioner Family; Visit Provider Nurse Practitioner Family
DX: I10 Essential (primary) hypertension (principal); E87.6 Hypokalemia
CPT/HCPCS: 36415; 80053; 80061; 81003; 83735; 84443; 85025

== ENCOUNTER 2025-01-08 09:22 | Outpatient (AMB) | payer MEDICARE, SELFPAY ==
--- OUTSIDE RECORDS SUMMARY | 2025-01-08 09:25 | XMS_ITS | Patient Health Record ---
Author Organization [facility] Shila ahmadi Reed Address [address] [place] [address] Care Team Providers Care Middle School Band Teacher Name Role Phone Rob Doshi Primary Care Provider Unav ailShawanda Horta Unavailable [phone] Allergies No Known Allergies Reason For Referral No Information Medications Medication SIG (Take, Route, Frequency, Duration) Notes Start Date End Date Status Orthopedic Extra Depth Shoes With Custom Heat Molded Multidensity Innersoles 1 Pair shoes with 3 Pair custom heat molded innersoles Wear Daily for 365 days 06/02/2024 Not-Taking Metoprolol Tartrate 50 MG 1 tablet with food Orally Twice a day Active Cephalexin 500 MG 1 capsule Orally Fou r times a day Not-Taking Nitroglycerin 0.4 MG as directed Sublingual Active Tamsulosin HCl 0.4 MG 1 capsule Orally O nce a day Active Jantoven 5 MG 1 tablet Orally Once a day Active Finasteride 5 MG 1 tablet Orally Once a day Active Furosemide 80 MG 1 tablet Orally Once a day Active Rosuvastatin Calcium 40 MG 1 tablet Oral ly Once a day Active Social History Tobacco Use: Social History Observation Description Date Details (start date - stop date) Never Smoker NA - NA Tobacco use other than smoking: Question Answer Notes Are you an other tobacco user? No Tobacco Control (Standard) Question Answer Notes Tobacco use: Nonsmoker Additional Findings: Tobacco non-user Current no nsmoker AUDIT-C (Standard) Question Answer Notes Did you have a drink contain ing alcohol in the past year? Yes How often did you have a dri nk containing alcohol in the past year? Monthly or less (1 point) How many drinks did you have on a typical day when you were drinking in the past year? 1 or 2 drinks (0 point) How often did you have six o r more drinks on one occasion in the past year? Never (0 point) Points 1 Interpretation Negative Problems Problem Type SNOMED Code ICD Code Onset Dates Problem Status W/U Status Risk Notes Problem Acquired hammer toe of right foot (1850744306742150) Other hammer toe(s) (acquired), right foot (M20.41) Active confirmed Problem Acquired hammer toe of left foot (1521965093831106) Other hammer toe(s) (acquired), left foot (M20.42) Active confirmed Problem [id number] Plantar fascial fibromatosis (M72.2) Active confirmed Problem Atherosclerosis of levelock artery of both lower extremities, with unspecified presence of clinical manifestation (I70.203) Active confirmed Problem [id number] Acute gout of l eft foot, unspecified cause (M10.9) Active confirmed Vital Signs Heart Rate 93 /min 12/07/2024 Blood pressure diastolic 73 mm Hg 12/07/2024 Height 5 ft 5 in in 12/07/2024 Blood pressure systolic 116 mm Hg 12/07/2024 Weight 200 lbs 12/07/2024 BMI 33.28 kg/m2 12/07/2024 Encounters Encounter Location Date Provider Diagnosis [facility] [address] [address] 03/16/2024 Shawanda Montaño Atherosclerosis of levelock artery of both lower extremities, with unspecified presence of clinical manifestation I70.203 ; Edema, lower extremity R60.0 ; Tinea unguium B35.1 ; Pain in right toe(s) M79.674 and Pain in left toe(s) M79.[address] [facility] [address] 06/02/2024 Shawanda Montaño Edema, lower extremi ty R60.0 ; Other hammer toe(s) (acquired), right foot M20.41 ; Atherosclerosis of levelock artery of both lower extremities, with unspecified presence of clinical manifestation I70.203 ; Tinea unguium B35.1 ; Pain in right toe(s) M79.674 ; Pain in left toe(s) M79.675 and Other hammer toe(s) (acquired), left foot M20.[address] [address] 08/17/2024 Shawanda Montaño Acute gout of left foot, unspecified cause M10.9 ; Other hammer toe(s) (acquired), right foot M20.41 ; Edema, lower extremity R60.0 ; Atherosclerosis of levelock artery of both lower extremities, with unspecified presence of clinical manifestation I70.203 ; Tinea unguium B35.1 ; Pain in right toe(s) M79.674 ; Pain in left toe(s) M79.675 ; Other hammer toe(s) (acquired), left foot M20.42 and Plantar fascial fibromatosis M72.[address] [address] 12/07/2024 Shawanda Montaño Puncture wound with foreign body, left foot, initial encounter S91.342A ; Pain in left toe(s) M79.675 ; Pain in right toe(s) M79.674 ; Tinea unguium B35.1 and Atherosclerosis of levelock artery of both lower extremities, with unspecified presence of clinical manifestation I70.[address] [address] 03/16/2024 Shawanda Montaño [address] [address] 09/01/2024 Shawanda Montaño [address] [address] 11/16/2024 Shawanda Montaño Assessments Encounter Date Diagnosis (ICD Code) Assessment Notes Treatment Notes Treatment Clinical Notes Section Notes 03/16/2024 Atherosclerosis of levelock artery of both lower extremities, with unspecified presence of clinical manifestation (ICD-10 - I70.203) 03/16/2024 Edema, lower extremity (ICD-10 - R60.0) 06/02/2024 Other hammer toe(s) (acquired), right foot (ICD-10 - M20.41) 06/02/2024 Edema, lower extremity (ICD-10 - R60.0) 08/17/2024 Other hammer toe(s) (acquired), right foot (ICD-10 - M20.41) 08/17/2024 Acute gout of left foot, unspecified cause (ICD-10 - M10.9) 12/07/2024 Puncture wound with foreign body, left foot, initial encounter (ICD-10 - S91.342A) 12/07/2024 Pain in left toe(s) (ICD-10 - M79.675) 12/07/2024 Pain in right toe(s) (ICD-10 - M79.674) 08/17/2024 Edema, lower extremity (ICD-10 - R60.0) 06/02/2024 Atherosclerosis of levelock artery of both lower extremities, with unspecified presence of clinical manifestation (ICD-10 - I70.203) 03/16/2024 Tinea unguium (ICD-10 - B35.1) 06/02/2024 Tinea unguium (ICD-10 - B35.1) 03/16/2024 Pain in right toe(s) (ICD-10 - M79.674) 08/17/2024 Atherosclerosis of levelock artery of both lower extremities, with unspecified presence of clinical manifestation (ICD-10 - I70.203) 12/07/2024 Tinea unguium (ICD-10 - B35.1) 12/07/2024 Atherosclerosis of levelock artery of both lower extremities, with unspecified [...] 08/17/2024 Next Appt Details Provider Name:Shawanda marquez, 03/08/2025 01:00:00 PM, [address] [place] [address], [phone], Insurance Providers Payer Name Payer Address Payer Phone Subscriber Number Group Number Insured Name Patient Relationship to Insured Coverage Start Date Coverage End Date Medicare National [employer] [address] [place] [address] [id number] Ramsey Brown Self - patient is the insured AARP Medicare Complete [address] [address] [place] [address] [id number] Ramsey Brown Self - patient is the insured Medical (General) History Medical History History ICD Code Anxiety Back,Hip,and Knee pain Cancer covid-19 Headaches/Migraines Heart disease Poor circulation Measles Mumps Chicken pox Joint implants/screws Surgical History Surgery Date(Month/Year) hernia knee replacement hip replacement 2021 mass in breast Hospitalization History Reason Date(Month/Year) [facility] - Fall 11/16/24
--- OUTSIDE RECORDS SUMMARY | 2025-01-08 09:25 | XMS_ITS | Encounter Summary ---
Author Organization [facility] Address [address] [place] [address] Care Team Providers Care Senior Mechanical Project Engineer Name Role Phone TenishajerrybelaRob Gale HOU Primary Care Provider Encounter Details Date Type Department Care Team (Latest Contact Info) Description 12/23/2024 Anticoagulation - Warfarin Visit [facility] Cardiology [facility] - [facility] 154 [address] [facility] 154 [place] [phone] Dimple Reich [place] Atrial fibrillation, unspecified type (CMS/HCC) (Primary Dx) Social History Tobacco Use Types Packs/Day Years Used Date Smoking Tobacco: Former Smokeless Tobacco: Never Alcohol Use Standard Drinks/Week Comments Never 0 (1 standard drink = 0.6 oz pur e alcohol) Sex and Gender Information Value Date Recorded Sex Assigned at Not on file Legal Sex Male 9:32 PM EST Gender Identity Not on file Sexual Orientation Not on file documented as of this encounter Progress Notes * Aaron Smith MA - 12/23/2024 9:10 AM EST Left voice message with instructions documented in this encounter Plan of Treatment Upcoming Encounters Date Type Department Care Team (Late st Contact Info) Description 01/21/2025 9:50 AM EDT Office Visit [facility] Cardiology [facility] - [facility] [address] [facility] 154 [place] [phone] Joana Leggett MD [address] [place] [address] documented as of this encounter Visit Diagnoses Diagnosis Atrial fibrillation, unspecified type (CMS/HCC)- Primary documented in this encounter Care Teams Senior Mechanical Project Engineer Relationship Specialty Start Date End Date Rob Hussein NP [address] [facility] [place] PCP - General 04/19/22 documented as of this encounter
--- OUTSIDE RECORDS SUMMARY | 2025-01-08 09:25 | XMS_ITS | Encounter Summary ---
Author Organization [facility] Address [address] [place] [address] Care Team Providers Care Zipper Sewing Machine Operator Name Role Phone TenishaRob gagnon AMEYA Primary Care Provider Encounter Details Date Type Department Care Team (Latest Contact Info) Description 12/31/2024 Anticoagulation - Warfarin Visit [facility] Cardiology [facility] - [facility] 154 300 [facility] 154 [place] [phone] Joana Leggett MD [address] [place] [address] Atrial fibrillation, unspecified type (CMS/HCC) (Primary Dx) [...] as of this encounter Progress Notes * Simone Hutchison MA - 12/31/2024 4:14 PM EST Spoke to pt and pt is aware of INR results, dosing instructions and recheck date. documented in this encounter Plan of Treatment Upcoming Encounters Date Type Department Care Team (Late st Contact Info) Description 01/21/2025 9:50 AM EDT Office Visit [facility] Cardiology [facility] - [facility] 154 300 [facility] [address] [place] [phone] Joana Leggett MD [address] [place] [address] documented as of this encounter Visit Diagnoses Diagnosis Atrial fibrillation, unspecified type (CMS/HCC)- Primary documented in this encounter Care Teams Zipper Sewing Machine Operator Relationship Specialty Start Date End Date Rob Hussein NP [address] [place], [place] PCP - General 04/19/22 documented as of this encounter
--- OUTSIDE RECORDS SUMMARY | 2025-01-08 09:25 | XMS_ITS | Clinical Summary ---
Author Organization LL [address] [facility] Address [address] [place] [phone] Phone Care Team Providers Care Marksmanship Instructor Name Role Phone Rob Hussein NP Primary Care Provider Allergies No known active allergies Medications Jantoven 5 mg tablet TAKE ONE TO ONE AND ONE-HALF TABLETS BY MOUTH EVERY DAY DIRECTED BY [facility] 135 tablet 2 4 Active ergocalciferol, vitamin D2, 50 mcg (2,000 unit) capsule Take by mouth. A ctive metoprolol tartrate (LOPRESSOR) 50 mg tablet Take [...] then 2 caps four hrs after procedure 2 Active B6/folic/B12/co ffee/phosphatid (NEURIVA PLUS ORAL) Take by mouth. Activ e Jantoven 4 mg tablet TAKE ONE TABLET BY MOUTH DAILY DIRECTED BY [facility] Active rosuvastatin (CRESTOR) 40 mg tablet Take 1 tablet (40 mg total) by mouth 1 (one) time each day. Active warfarin (COUMADIN) 5 mg tablet Take 1 to 1.5 tablets daily as directed by [facility] coumadin clinic 2 Active tamsulosin (FLOMAX) 0.4 mg 24 hr capsule Take 1 Capsule by mouth daily. Take 30 mins after same meal every day. 2 Active Active Problems Problem Noted Date Diagnosed Date A-fib 10/01/2024 Longstanding persistent atrial fibrillation 03/2022 Coronary artery disease of n ative artery of [place] heart with stable angina pectoris 05/23/2022 Overview (10/03/2024): Last Assessment & Plan: At his heaviest level of activity walking in the x[employer]ion's and walking in the practice several yards [...] Encounters Date Type Department Care Team Description 01/04/2025 Anticoagulation - Warfarin Visit [facility] [address] [place] [address] Joana Leggett MD Atrial fibrillation, unspecified type (CMS/HCC) (Primary Dx) 12/31/2024 Anticoagulation - Warfarin Visit [facility] [address] [place] [address] Joana Leggett MD Atrial fibrillation, unspecified type (CMS/HCC) (Primary Dx) 12/24/2024 Anticoagulation - Warfarin Visit [facility] [address] [place] [address] Joana Leggett MD Atrial fibrillation, unspecified type (CMS/HCC) (Primary Dx) 12/23/2024 Anticoagulation - Warfarin Visit [facility] [address] [place] [address] Burton ReichahALAN Atrial fibrillation, unspecified type (CMS/HCC) (Primary Dx) 12/14/2024 Anticoagulation - Warfarin Visit [facility] - [address] [place] [address] Joana Leggett MD Atrial fibrillation, unspecified type (CMS/HCC) (Primary Dx) 12/06/2024 Anticoagulation - Warfarin Visit [facility] - [address] [place] [address] Joana Leggett MD Atrial fibrillation, unspecified type (CMS/HCC) (Primary Dx) 11/26/2024 Telephone [facility] - [address] [place] [address] Joana Leggett MD No Show 11/15/2024 Anticoagulation - Warfarin Visit [facility] [address] [place] [address] Joana Leggett MD Atrial fibrillation, unspecified type (CMS/HCC) (Primary Dx) 11/08/2024 Anticoagulation - Warfarin Visit [facility] Cardiology [facility] [address] [facility] 154 [place] [address] Joana Leggett MD Atrial fibrillation, unspecified type (CMS/HCC) (Primary Dx) 11/07/2024 11:01 AM EST - 11/07/2024 4:17 PM EST [facility] Emergency [address] [place] [address] Ammon Anne MD Cheng, Ting Ho Danny, DO Scalp laceration, initial encounter (Primary Dx) Discharge Disposition: Home or Self Care 10/26/2024 Anticoagulation - Warfarin Visit [facility] Cardiology [facility] [address] [facility] 154 [place] [address] Joana Leggett MD Atrial fibrillation, unspecified type (CMS/HCC) (Primary Dx) 10/12/2024 Anticoagulation - Warfarin Visit [facility] [address] [facility] 154 [place] [address] Joana Leggett MD Atrial fibrillation, unspecified type (CMS/HCC) (Primary Dx) from Last 3 Months Surgical History Surgery Date Site/Laterality Comments TOTAL KNEE ARTHROPLASTY PROCEDURE: IN ARTHRP KNE CONDYLE&PLATU MEDIAL&LAT COMPARTMENTS Medical History [...] on file Sexual Orientation Not on file Obstetrics History Last Filed [...] Description 01/21/2025 9:50 AM EDT Office Visit [facility] [address] [facility] 154 [place] [address] Joana Leggett MD [address] [place] [address] Health Maintenance Due Date Last Done Comments [...] Td or Tdap) 03/19/2029 03/19/2019 Pneumococcal Vaccine: 50+ Years Completed 01/05/2019, 04/25/2017 HIB Vaccines Aged [...] patient's age to complete this topic Meningococcal B Vacine Aged Out No lo nger eligible based on patient's age to complete this topic RSV Immunization Patients Under 20 months Aged Out No longer eligible based on patient's age to complete this topic Varicella Vaccines Aged Out No longer eligible based on patient's age to complete this topic Procedures Procedure Name Priority Date/Time Associated Diagnosis Comments PROTHROMBIN TIME WITH INR Routine 01/04/2025 12:31 PM EST Atrial fibrillation (CMS/HCC) PROTHROMBIN TIME WITH INR Routine 12/31/2024 1:31 PM EST Atrial fibrillation (CMS/HCC) PROTHROMBIN TIME WITH INR Routine 12/24/2024 3:13 PM EST Atrial fibrillation (CMS/HCC) PROTHROMBIN TIME WITH INR Routine 12/22/2024 1:42 PM EST Atrial fibrillation (CMS/HCC) PROTHROMBIN TIME WITH INR Routine 12/14/2024 10:28 [...] 10/12/2024 11:40 AM EST Atrial fibrillation (CMS/HCC) LIPID PANEL Routine 09/02/2023 from Last 3 Months or Most Recently Relevant to Health Maintenance Results * (ABNORMAL) Prothrombin time with INR (01/04/2025 12:31 PM EST) Only the most recent of10 resultswithin the time period is included. Protime 18.9(H) 10.6 - 13.9 sec LAB COAGULATION METHOD 01/04/2025 2:02 PM EST [facility] INR 1.5 LAB COAGULATION METHOD 01/04/2025 2:02 PM EST [facility] Blood Venous blood specimen / Unknown Venipuncture / Unknown 01/04/2025 12:31 PM EST 01/04/2025 1:52 PM EST us Joana Leggett MD LAB BLOOD ORDERABLES Final Resu lt [facility] [address] [place] [address], [place] [phone] * XR Shoulder 2+ Views Left (11/07/2024 [...] Signed Date: 11/07/2024 13:23 ET Workstation ID: [id number] Transcribed By: Self Edit Transcribed Date: 11/07/2024 [...] Signed Date: 11/07/2024 13:23 ET Workstation ID: [id number] Transcribed By: Self Edit Transcribed Date: 11/07/2024 13:22 ET Ammon Anne MD IMG XR PROCEDURES Final R esult * CT Cervical Spine wo Contrast (11/07/2024 [...] Signed Date: 11/07/2024 13:22 ET Workstation ID: [id number] Transcribed By: Self Edit Transcribed Date: 11/07/2024 13:22 ET Procedure Note Oli Roberts MD - 11/07/2024 CT cervical spine without contrast is dictated with CT brain withoutcontrast -------- FINAL REPORT -------- Dictated By: Oli Roberts Dictated Date: 11/07/2024 13:22 ET Assigned Physician: Oli Roberts Reviewed and Electronically Signed By: Oli Roberts Signed Date: 11/07/2024 13:22 ET Workstation ID: [id number] Transcribed By: Self Edit Transcribed Date: 11/07/2024 13:22 ET Ammon Anne MD IMG CT PROCEDURES Final R esult * CT Head wo Contrast (11/07/2024 12:55 [...] Signed Date: 11/07/2024 13:21 ET Workstation ID: [id number] Transcribed By: Self Edit Transcribed Date: 11/07/2024 [...] images of cervical spine were obtained. Scanner: [employer] 64 slice VCT Dose reduction technique: ASIR [...] coronal images of cervicalspine were obtained. Scanner: [employer] 64 slice VCT Dose reduction technique: ASIR [...] There is a rotary subluxation of the C1-E3uprjflwnh. The cervical-medullary junction is normal. No visible [...] Signed Date: 11/07/2024 13:21 ET Workstation ID: [id number] Transcribed By: Self Edit Transcribed Date: 11/07/2024 13:13 ET us Ammon Anne MD IM CT PROCEDURES Final R esult * (ABNORMAL) Urinalysis with reflex microscopic (11/07/2024 12:17 PM EST) Specific [place] Urine 1.012 1.003 - 1.030 LAB URINALYSIS - AUTOMATED METHOD 11/07/2024 12:44 PM [facility] pH, Urine 7.5 5.0 - 8.0 pH LAB URINALYSIS - AUTOMATED METHOD 11/07/2024 12:44 PM [facility] Leukocytes, Urine Negative Negative LAB URINALYSIS - AUTOMATED METHOD 11/07/2024 12:44 PM [facility] Nitrite, Urine Negative Negative LAB URINALYSIS - AUTOMATED METHOD 11/07/2024 12:44 PM [facility] Protein, Urine 100(A) <=Trace mg/dL LAB URINALYSIS - AUTOMATED METHOD 11/07/2024 12:44 PM [facility] Glucose, Urine Negative Negative mg/dL LAB URINALYSIS - AUTOMATED METHOD 11/07/2024 12:44 PM [facility] Ketones, Urine Negative Negative mg/dL LAB URINALYSIS - AUTOMATED METHOD 11/07/2024 12:44 PM [facility] Urobilinogen, Urine 1.0 0.2 - 1.0 mg/dL LAB URINALYSIS - AUTOMATED METHOD 11/07/2024 12:44 PM [facility] Bilirubin, Urine Negative Negative LAB URINALYSIS - AUTOMATED METHOD 11/07/2024 12:44 PM [facility] Blood, Urine Trace(A) Negative LAB URINALYSIS - AUTOMATED METHOD 11/07/2024 12:44 PM [facility] RBC, Urine 6.3(H) 0 - 4 /HPF LAB URINALYSIS - AUTOMATED METHOD 11/07/2024 12:44 PM [facility] WBC, Urine 2.8 0 - 4 /HPF LAB URINALYSIS - AUTOMATED METHOD 11/07/2024 12:44 PM [facility] Squamous Epithelial, Urine 40 0 - 60 /LPF LAB URINALYSIS - AUTOMATED METHOD 11/07/2024 12:44 PM [facility] Bacteria, Urine Negative Negative /HPF LAB URINALYSIS - AUTOMATED METHOD 11/07/2024 12:44 PM [facility] Hyaline Casts, Urine 2.1 0 - 3 /LPF LAB URINALYSIS - AUTOMATED METHOD 11/07/2024 12:44 PM [facility] Urine Urine specimen obtained by clean catch procedure / Unknown Non-blood Collection / Unknown 11/07/2024 12:17 PM EST 11/07/2024 12:35 PM EST us Ammon Anne MD LAB URINE ORDERABLES Bridget l Result [facility] [address] [place] [address], * (ABNORMAL) CBC auto differential (11/07/2024 11:45 AM EST) [facility] WBC 6.7 4.8 - 10.8 K/mcL LAB HEMETOLOGY METHOD 11/07/2024 12:43 PM [facility] RBC 4.40(L) 4.50 - 5.50 M/mcL LAB HEMETOLOGY METHOD 11/07/2024 12:43 PM [facility] Hemoglobin 12.2(L) 13.5 - 17.5 g/dL LAB HEMETOLOGY METHOD 11/07/2024 12:43 PM [facility] Hematocrit 38.9(L) 42.0 - 54.0 % LAB HEMETOLOGY METHOD 11/07/2024 12:43 PM [facility] MCV 89.4 79.0 - 98.0 FL LAB HEMETOLOGY METHOD 11/07/2024 12:43 PM [facility] MCH 28.0 27.0 - 32.0 pcg LAB HEMETOLOGY METHOD 11/07/2024 12:43 PM [facility] MCHC 31.4(L) 32.0 - 37.0 g/dL LAB HEMETOLOGY METHOD 11/07/2024 12:43 PM [facility] RDW 16.7(H) 11.0 - 15.0 % LAB HEMETOLOGY METHOD 11/07/2024 12:43 PM [facility] Platelets 188 130 - 400 K/mcL LAB HEMETOLOGY METHOD 11/07/2024 12:43 PM [facility] MPV 11.0 7.0 - 11.0 FL LAB HEMETOLOGY METHOD 11/07/2024 12:43 PM [facility] NRBC 0.0 <1.0 % LAB HEMETOLOGY METHOD 11/07/2024 12:43 PM [facility] NRBC Absolute 0.00 <0.10 K/mcL LAB HEMETOLOGY METHOD 11/07/2024 12:43 PM [facility] Neutrophils Relative 72.9 % LAB HEMETOLOGY METHOD 11/07/2024 12:43 PM [facility] Lymphocytes Relative 13.5 % LAB HEMETOLOGY METHOD 11/07/2024 12:43 PM [facility] Monocytes Relative 9.9 % LAB HEMETOLOGY METHOD 11/07/2024 12:43 PM [facility] Eosinophils Relative 2.5 % LAB HEMETOLOGY METHOD 11/07/2024 12:43 PM [facility] Basophils Relative 0.9 % LAB HEMETOLOGY METHOD 11/07/2024 12:43 PM [facility] Immature Granulocytes Relative 0.3 % LAB HEMETOLOGY METHOD 11/07/2024 12:43 PM [facility] Neutrophils Absolute 4.87 1.50 - 7.00 K/mcL LAB HEMETOLOGY METHOD 11/07/2024 12:43 PM [facility] Lymphocytes Absolute 0.90(L) 1.00 - 5.00 K/mcL LAB HEMETOLOGY METHOD 11/07/2024 12:43 PM [facility] Monocytes Absolute 0.66 0.20 - 1.00 K/mcL LAB HEMETOLOGY METHOD 11/07/2024 12:43 PM [facility] Eosinophils Absolute 0.17 0.00 - 0.50 K/mcL LAB HEMETOLOGY METHOD 11/07/2024 12:43 PM [facility] Basophils Absolute 0.06 0.00 - 0.20 K/mcL LAB HEMETOLOGY METHOD 11/07/2024 12:43 PM [facility] Immature Granulocytes Absolute 0.02 0.00 - 0.03 K/mcL LAB HEMETOLOGY METHOD 11/07/2024 12:43 PM [facility] Blood Venous blood specimen / Unknown Venipuncture / Unknown 11/07/2024 11:45 AM EST 11/07/2024 12:33 PM EST Ammon Anne MD LAB BLOOD ORDERABLES Bridget lady Result [facility] [address] [place] [address], * (ABNORMAL) Comprehensive metabolic panel (11/07/2024 11:45 AM EST) Sodium 138 133 - 145 mmol/L LAB CHEMISTRY METHOD 11/07/2024 1:05 PM [facility] Potassium 3.1(L) 3.5 - 5.5 mmol/L LAB CHEMISTRY METHOD 11/07/2024 1:05 PM [facility] Chloride 100 96 - 110 mmol/L LAB CHEMISTRY METHOD 11/07/2024 1:05 PM [facility] CO2 31 21 - 32 mmol/L LAB CHEMISTRY METHOD 11/07/2024 1:05 PM [facility] Anion Gap 7 3 - 11 LAB CHEMISTRY METHOD 11/07/2024 1:05 PM [facility] Glucose 118(H) 70 - 100 mg/dL LAB CHEMISTRY METHOD 11/07/2024 1:05 PM [facility] BUN 18 5 - 25 mg/dL LAB CHEMISTRY METHOD 11/07/2024 1:05 PM [facility] Creatinine 1.09 0.70 - 1.30 mg/dL LAB CHEMISTRY METHOD 11/07/2024 1:05 PM [facility] eGFR 68 >=60 mL/min/1. 73m2 LAB CHEMISTRY METHOD 11/07/2024 1:05 PM [facility] Comment:Calculation based on the??Chronic Kidney Disease Epidemiology Collaboration (CKD-EPI) equation refit??without adjustment for race. BUN/Creatinine Ratio 16.5 LAB CHEMISTRY METHOD 11/07/2024 1:05 PM [facility] Calcium 9.6 8.5 - 10.5 mg/dL LAB CHEMISTRY METHOD 11/07/2024 1:05 PM [facility] AST (SGOT) 34 10 - 42 unit/L LAB CHEMISTRY METHOD 11/07/2024 1:05 PM [facility] ALT (SGPT) 24 10 - 60 unit/L LAB CHEMISTRY METHOD 11/07/2024 1:05 PM [facility] Alkaline Phosphatase 77 42 - 121 unit/L LAB CHEMISTRY METHOD 11/07/2024 1:05 PM [facility] Total Protein 7.0 6.0 - 8.0 g/dL LAB CHEMISTRY METHOD 11/07/2024 1:05 PM [facility] Albumin 3.5 3.2 - 5.0 g/dL LAB CHEMISTRY METHOD 11/07/2024 1:05 PM [facility] Total Bilirubin 0.7 0.0 - 1.4 mg/dL LAB CHEMISTRY METHOD 11/07/2024 1:05 PM [facility] Blood Venous blood specimen / Unknown Venipuncture / Unknown 11/07/2024 11:45 AM EST 11/07/2024 12:33 PM EST Ammon Anne MD LAB BLOOD ORDERABLES Bridget l Result [facility] [address] [place] [address], * (ABNORMAL) Lipid panel (09/02/2023) LDL/HDL Ratio 3 0 - 4 Triglycerides 88 0 - 150 mg/dL Cholesterol 191 0 - 200 mg/dL HDL 73 >=40 mg/dL LDL Cholesterol 101(A) 0 - 100 mg/dL Blood Venous blood specimen / Unknown us Historical Provider LAB BLOOD ORDERABLES Bridget l Result from Last 3 Months or Most Recently Relevant to [place] [id number] MEDICARE [facility] Care Teams Marksmanship Instructor Relationship Specialty Start Date End Date Rob Hussein NP [address] [facility] [place] PCP - General 04/19/22
--- OUTSIDE RECORDS SUMMARY | 2025-01-08 09:25 | XMS_ITS | Encounter Summary ---
Author Organization [facility] Address [address] [place] [address] Care Team Providers Care Regulatory Affairs Strategy Specialist Name Role Phone SherricontrerasRob gagnon AMEYA Primary Care Provider Encounter Details Date Type Department Care Team (Latest Contact Info) Description 01/04/2025 Anticoagulation - Warfarin Visit [facility] Cardiology [facility] [address] [facility] [address] [place] [phone] Joana Leggett MD [address] [place] [address] Atrial fibrillation, unspecified type (CMS/HCC) (Primary Dx) [...] Progress Notes * Aaron Smith MA - 01/04/2025 2:43 PM EST Patient aware of instructions documented in this encounter Plan of Treatment Upcoming Encounters Date Type Department Care Team (Late st Contact Info) Description 01/21/2025 9:50 AM EDT Office Visit [facility] Cardiology [facility] [address] [facility] [address] [place] [phone] Joana Leggett MD [address] [place] [address] documented as of this encounter Visit Diagnoses Diagnosis Atrial fibrillation, unspecified type (CMS/HCC)- Primary documented in this encounter Care Teams Regulatory Affairs Strategy Specialist Relationship Specialty Start Date End Date Rob Hussein NP [address] [place], [place] PCP - General 04/19/22 documented as of this encounter
--- OUTSIDE RECORDS SUMMARY | 2025-01-08 09:25 | XMS_ITS ---
Author Organization [facility] Address Unknown Problems Problem Status Start Date End Date AFTERCARE FOLLOWING EXPLANTA TION OF HIP JOINT PROSTHESIS (Primary) (Z47.32 - ICD-10-CM) ACTIVE 06/10/2020 ESSENTIAL (PRIMARY) HYPERTENSION (I10 - ICD-10-CM) ACT CHAYO 06/10/2020 PURE HYPERCHOLESTEROLEMIA, U NSPECIFIED (E78.00 - ICD-10-CM) ACTIVE 06/10/2020 BENIGN PROSTATIC HYPERPLASIA WITH LOWER URINARY TRACT SYMPTOMS (N40.1 - ICD-10-CM) ACTIVE 06/10/2020 OTHER ABNORMALITIES OF GAIT AND MOBILITY (R26.89 - ICD-10-CM) ACTIVE 06/10/2020 MUSCLE WEAKNESS (GENERALIZED) (M62.81 - ICD-10-CM) ACT CHAYO 06/10/2020 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.642 - ICD-10-CM) ACTIVE 06/10/2020 UNILATERAL PRIMARY OSTEOARTH RITIS, LEFT HIP (M16.12 - ICD-10-CM) ACTIVE 06/10/2020 UNSPECIFIED ATRIAL FIBRILLATION (I48.91 - ICD-10-CM) A CTIVE 06/10/2020 ANEMIA, UNSPECIFIED (D64.9 - ICD-10-CM) ACTIVE 0 06/10/2020 ENCOUNTER FOR OTHER SPECIFIE D SURGICAL AFTERCARE (Z48.89 - ICD-10-CM) ACTIVE 06/10/2020 PULMONARY HYPERTENSION, UNSPECIFIED (I27.20 - ICD-10-C M) ACTIVE 06/10/2020 Encounters Encounter Performer Performer Role Encounter Diagnoses Location Date Discharge - Discharged to home or self care - HOME - Home [facility] 0 08:59 pm EDT - 0 02:40 pm EDT Social History
--- OUTSIDE RECORDS SUMMARY | 2025-01-08 09:25 | XMS_ITS ---
Author Organization [facility] Address [address] [facility] [place] [address] Care Team Providers Care Impregnator And Drier Name Role Phone Rob Doshi Primary Care Provider Unav ailable Shawanda Monatño Unavailable [phone] Medications Medication SIG (Take, Route, Frequency, Duration) [...] Active Encounters Encounter Location Date Provider Diagnosis [facility] [address] [place] [address] 11/16/2024 Shawanda Montaño Plan Of Treatment Next Appt Details Provider Name:Shawanda marquez, 03/08/2025 01:00:00 PM, [address] [place] [address], [phone], Progress Notes * Ramsey ALFREDDOB:1945 (79 yo M)Acc No.[id number]:11/16/2024 Progress Note Patient:Ramsey DAS Provider:?Shawanda Montaño DPM :1945???Age:79 Y???Sex:Male Izaiah e:11/16/2024 Address:[address] [place] [address], [facility] Pcp:Rob Hussein NP-AN Subjective: * Chief Complaints: [...] Provider:?Shawanda Montaño DPM Date:?05/2025 Generated for Sebastian rodriguez/Evangelista/Allysonitting on:?01/08/2025 09:24 AM EST History and Physical Notes * HPI (History of Present Illness) Category Sub-Category Detail Notes Category Not es At Risk footcare Pt States Last PCP Visit: Date: 4
--- OUTSIDE RECORDS SUMMARY | 2025-01-08 09:25 | XMS_ITS | Encounter Summary ---
Author Organization [facility] Address [address] [place] [address] Care Team Providers Care Kaiawhina Name Role Phone SherricontrerasRob gagnon AMEYA Primary Care Provider Encounter Details Date Type Department Care Team (Latest Contact Info) Description 12/24/2024 Anticoagulation - Warfarin Visit [facility] [address] [facility] [address] [place] [phone] Joana Leggett MD [address] [place] [address] Atrial fibrillation, unspecified type (CMS/HCC) (Primary Dx) [...] Progress Notes * Aaron Smith MA - 12/24/2024 4:22 PM EST Patient aware of instructions documented in this encounter Plan of Treatment Upcoming Encounters Date Type Department Care Team (Late st Contact Info) Description 01/21/2025 9:50 AM EDT Office Visit [facility] [address] [facility] [address] [place] [phone] Joana Leggett MD [address] [place] [address] documented as of this encounter Visit Diagnoses Diagnosis Atrial fibrillation, unspecified type (CMS/HCC)- Primary documented in this encounter Care Teams Kaiawhina Relationship Specialty Start Date End Date Rob Hussein NP [address] [place], [place] PCP - General 04/19/22 documented as of this encounter
--- OUTSIDE RECORDS SUMMARY | 2025-01-08 09:25 | XMS_ITS ---
Author Organization [facility] Address [address] [place] [address] Care Team Providers Care Circulation Tender Name Role Phone Rob Doshi Primary Care Provider Unav ailable Shawanda Montaño Unavailable [phone] REASON FOR VISIT sooner appt Encounters Encounter Location Date Provider Diagnosis [address] [address] 01/05/2025 Shawanda Montaño Plan Of Treatment Next Appt Details Provider Name:Shawanda marquez, 03/08/2025 01:00:00 PM, [address] [place] [address], [phone], Progress Notes * Ramsey ALFREDDOB:1945 (79 yo M)Acc No.[id number]:01/05/2025 Progress Note Patient:?Ramsey ALFRED Provider:?Shawanda Montaño DPM :1945???Age:79 Y???Sex:Male Izaiah e:01/05/2025 [facility] [id number] Pcp:AMA Alvarado Subjective: * Chief Complaints: * ???1. Sooner appt. * Medical History:? Objective: * Vitals:? Assessment: Plan: * Treatment: * Images: * The named appointment provid er may or may not be the originator of this progress note, and it is not deemed complete until electronically signed by the appointment provider. Sign off status: Pending * Provider:?Shawanda Montaño DPM Date:? Generated for Sebastian rodriguez/Evangelista/Radha on:?01/08/2025 09:25 AM EST
--- OUTSIDE RECORDS SUMMARY | 2025-01-08 09:25 | XMS_ITS | Encounter Summary ---
Author Organization [facility] Address [address] [place] [address] Care Team Providers Care Concrete Grinder Operator Name Role Phone SherricontrerasRob gagnon AMEYA Primary Care Provider Encounter Details Date Type Department Care Team (Latest Contact Info) Description 12/14/2024 Anticoagulation - Warfarin Visit [facility] Cardiology [facility] [address] [facility] [address] [place] [phone] Joana Leggett MD [address] [place] [address] Atrial fibrillation, unspecified type (CMS/HCC) (Primary Dx) [...] Progress Notes * Aaron Smith MA - 12/14/2024 11:24 AM EST Patient aware of instructions documented in this encounter Plan of Treatment Upcoming Encounters Date Type Department Care Team (Late st Contact Info) Description 01/21/2025 9:50 AM EDT Office Visit [facility] Cardiology [facility] [address] [facility] [address] [place] [phone] Joana Leggett MD [address] [place] [address] documented as of this encounter Visit Diagnoses Diagnosis Atrial fibrillation, unspecified type (CMS/HCC)- Primary documented in this encounter Care Teams Concrete Grinder Operator Relationship Specialty Start Date End Date Rob Hussein NP [address] [place], [place] PCP - General 04/19/22 documented as of this encounter
--- OUTSIDE RECORDS SUMMARY | 2025-01-08 09:26 | XMS_ITS ---
Author Organization [facility] Shila Novoa Address [address] [facility] [place] [address] Care Team Providers Care Database Administration Manager Name Role Phone Rob Doshi Primary Care Provider Unav ailable Shawanda Montaño Unavailable [phone] Allergies No Known Allergies REASON FOR VISIT At Risk Footcare, Painful Nail(s) aggrevated by shoes and causing difficulty standing/walking., Skin problem(s) Medications Medication SIG (Take, Route, Frequency, Duration) Notes Start Date End Date Status Metoprolol Tartrate 50 MG 1 tablet with food Orally Twice a day Active Jantoven 5 MG 1 [...] Wear Daily for 365 days 06/02/2024 Not-Taking Cephalexin 500 MG 1 capsule Orally Fou r times a day Not-Taking Nitroglycerin 0.4 MG as directed Sublingual Active Tamsulosin HCl 0.4 MG 1 capsule Orally O nce a day Active Social History Tobacco Use: [...] Never (0 point) Points 1 Interpretation Negative Vital Signs Height 5 ft 5 in in 12/07/2024 Weight 200 lbs 12/07/2024 BMI 33.28 kg/m2 12/07/2024 Blood pressure systolic 116 mm Hg 12/07/19 25 Blood pressure diastolic 73 mm Hg 025 Heart Rate 93 /min 12/07/2024 Encounters Encounter Location Date Provider Diagnosis [facility] [place] [address] [place] [address] 12/07/2024 Shawanda Montaño Puncture wound with foreign body, left foot, initial encounter S91.342A ; Pain in left toe(s) M79.675 ; Pain in right toe(s) M79.674 ; Tinea unguium B35.1 and Atherosclerosis of [place] artery of both lower extremities, with unspecified presence of clinical manifestation I70.203 Assessments Encounter Date Diagnosis (ICD Code) Assessment Notes Treatment Notes Treatment Clinical Notes Section Notes 12/07/2024 Puncture wound with foreign body, left foot, initial encounter (ICD-10 - S91.342A) 12/07/2024 Pain in left toe(s) (ICD-10 - M79.675) 12/07/2024 Pain in right toe(s) (ICD-10 - M79.674) 12/07/2024 Tinea unguium (ICD-10 - B35.1) 12/07/2024 Atherosclerosis of [place] artery of both lower extremities, with unspecified presence of clinical manifestation (ICD-10 - I70.203) Plan Of Treatment Next Appt Details Follow Up: 3 Months, Reason: Provider Name:Shawanda marquez, 03/08/2025 01:00:00 PM, [address] [place], [address], Procedure Notes * Category Sub-Category Detail Notes Foreign Body Removal Anesthesia was accompl ished TOPICALLY with Lidocaine Hydrochloride Jelly 5 percent Procedure The wound was explor ed and a possible foreign body ( sliver ) was removed along with devitalized tissue, thru skin and subcutaneous tissue, using sterile 15 blade sharp dissection. A sterile antibiotic ointment dressing was applied and wound care instructions were discussed and dispensed, Patient tolerated procedure well (01228) Location of foreign body As per exam Skin area prepped with al cohol or betadine , procedure performed under aseptic conditions Debride Nail 6-10 Nail debridement Due to the cl inical pathology outlined in the exam findings, performance of this nail treatment is medically necessary as its management by an unskilled/untrained nonprofessional would put this patients foot and overall health at risk. Therefore, debridement to affected nail(s), as described in exam (TA, T1, T2, T3, T4, T5, T6, T7, T8, T9, ), was performed exclusively by the physician of record to reduce/remove overall nail length, girth, thickness, subungual debris, and necrotic tissue, by manual and/or electrical means through the use of a nail nipper and/or dremel-type instrument lens grinder, to a more viable healthy nail plate or bed tissue 6-10 nails in total. Silver nitrate was used for any petechial bleeding as necessary. Definitive antifungal treatment options, both pharmaceutical and surgical, have been reviewed and discussed with the patient. The patient solely prefers the use of intermittent/as needed professional debridement services for their nail condition and understands the need for additional periodic treatments to maintain effectiveness in symptomatic relief - 60043 Keratoma Treatment Parring or Cutting o f Benign Hyperkeratotic Lesion(s) (-57) More than 4 Lesions - Due to the a t risk nature of the patients medical condition as documented in the exam findings, performance of this keratoderma treatment is medically necessary as its management by an unskilled/untrained nonprofessional would put this patients foot and overall health at risk. Therefore, the benign hyperkeratotic lesions, ( 6 ) in total, locations as stated and described in the exam ( TA T5, SUB MTH (s), 1, Heel(s), B/L ), were pared, and/or cut utilizing a sterile 15 blade, tissue nippers, and/or power dremel instrumentation by the physician of record - 61086 Progress Notes * Carlitos ALFRED:1945 (79 yo M)Acc No.[id number]:12/07/2024 Progress Note Patient:?Ramsey ALFRED Provider:?Shawanda Montaño DPM :1945???Age:79 Y???Sex:Male Izaiah e:12/07/2024 Address:[address] [place] [address], [address], [facility] Pcp:AMA Alvarado Subjective: * Chief Complaints: * ???At Risk FootcarePainful N ail(s) aggrevated by shoes and causing difficulty standing/walking.Skin problem(s) * HPI: ???At Risk footcare:?Pt States Last PCP Visit:?Date?04/12/2024 ???Skin problems:?Nature:?tender.?Location:?Heel/Rearfoot, Left.? * ROS:?General/Constitutional:?Nausea?denies.?Vomiting?denies.?Hunger Thirst?denies.?Loss appetite?denies.?Chills?denies.?Fatigue?denies.?Fever?denies.?Night Sweats?denies.?Unexplained weight loss?denies.?Unexplained weight gain?denies.?HEENTM:?Dentures?admits.?Dizziness?admits.?Glasses/contacts?admits.?Retinopathy?de nies.?Blurred/double vision?denies.?TMJ?denies.?Discharge/drainage?denies.?Implants?denies.?Sore throat?denies.?Dental implants?denies.?Hard of hearing ?denies.?Difficulty chewing/swallowing/speaking?denies.?Nose bleeds?denies.?Sore mouth?denies.?Respiratory:?On Oxygen?denies.?Pneumonia/pleurisy?denies.?Bronchitis?denies.?Emphysema?denies.?C oughing?admits.?Cough blood?denies.?Shortness of breath?admits.?Wheezing?admits.?Cardiovascular:?Pacemaker?denies.?MVP?denies.?WPW?denies.?CHF?denies.?Heart attack?denies.?Septal defect?denies.?Rapid beat?denies.?Chest pain ?denies.?Atrial Fib.?admits.?Murmur/Palpitations?denies.?Gastrointestinal:?Hemorrhoids?denies.?Stomach/Abdominal pain?denies.?Dark blood stool?denies.?Irritable bowel ?denies.?Constipation?denies.?Diarrhea?denies.?Hematology:?Swelling?admits.?Clots?denies.?Varicose Veins?denies.?Bruising?admits.?Bleeding problem?denies.?Genitourinary:?Blood urine?denies.?Frequent/Painfu/urination/bladder control?denies.?Kidney stones?denies.?Infection (UTI)?denies.?Nephropathy?denies.?sex trans dis (STD)?denies.?Prostate?denies.?Musculoskeletal:?Hammertoes?denies.?Bunions?denies.?Back Pain?denies.?Muscle Cramps/ Resting?denies.?Muscle cramps / walking?denies.?Generalized aches and pains?admits.?Weakness?denies.?Integ.:?Velez?denies.?Scars?denies.?Corns/calluses?admits.?Ingrown nails?denies.?Painful nails?denies.?Open Sores?denies.?Rashes?denies.?Neurologic:?Difficulty sleeping?denies.?Brain disorder?denies.?Numbness?denies.?Balance trouble?admits.?Confusion?admits.?Fainting/blackouts?denies.?Tingling?admits.?Tr emors?denies.? * Medical History:? * Surgical History:?hernia kne e replacement hip replacement 2021mass in breast * Hospitalization/Major Diagno stic Procedure:?[facility] - Fall 11/16/24 * Family History:?Mother: dece ased, diabetes, high blood pressure, poor circulation.?Father: , heart attack, high blood pressure, poor circulation.?Son(s): alive.?Siblings: diabetes, kidney/liver disease.? * Social History:?Tobacco Use:?Tobacco use other than smoking?Are you an other tobacco user??No ?Tobacco Control (Standard)?Tobacco use:?Nonsmoker ?Additional Findings: Tobacco non-user?Current nonsmoker ???Drugs/Alcohol:?Drugs?Have you used drugs other than those for medical reasons in the past 12 months??No ???Miscellaneous:?Caffeine: yes, decaff 2-3 cups per day. ?Children: yes, 4. ?Exercise: yes, walking. ?Marital status: . ?Occupation: Retired- [employer]. ???Drug/Alcohol:?AUDIT-C (Standard)?Did you have a drink containing alcohol in the past year??Yes ?How often did you have a drink containing alcohol in the past year??Monthly or less (1 point) ?How many drinks did you have on a typical day when you were drinking in the past year??1 or 2 drinks (0 point) ?How often did you have six or more drinks on one occasion in the past year??Never (0 point) ?Points?1 ?Interpretation?Negative * Medications:?TakingNitroglyc yuliana 0.4 MG Tablet Sublingual as directed Sublingual Tamsulosin HCl 0.4 MG Capsule 1 capsule Orally Once a day Finasteride 5 MG Tablet 1 tablet Orally Once a day Jantoven 5 MG Tablet 1 tablet Orally Once a day Rosuvastatin Calcium 40 MG Tablet 1 tablet Orally Once a day Furosemide 80 MG Tablet 1 tablet Orally Once a day Metoprolol Tartrate 50 MG Tablet 1 tablet with food Orally Twice a day Taking Nitroglycerin 0.4 MG Tablet Sublingual as directed Sublingual Taking Tamsulosin HCl 0.4 MG Capsule 1 capsule Orally Once a day Taking Finasteride 5 MG Tablet 1 tablet Orally Once a day Taking Jantoven 5 MG Tablet 1 tablet Orally Once a day Taking Rosuvastatin Calcium 40 MG Tablet 1 tablet Orally Once a day Taking Furosemide 80 MG Tablet 1 tablet Orally Once a day Taking Metoprolol Tartrate 50 MG Tablet 1 tablet with food Orally Twice a day Not-Taking/PRNOrthopedic Extra Depth Shoes With Custom Heat Molded Multidensity Innersoles 1 Pair shoes with 3 Pair custom heat molded innersoles Wear Daily Cephalexin 500 MG Capsule 1 capsule Orally Four times a day Medication List reviewed and reconciled with the patientNot-Taking/PRN Orthopedic Extra Depth Shoes With Custom Heat Molded Multidensity Innersoles 1 Pair shoes with 3 Pair custom heat molded innersoles Wear Daily Not-Taking/PRN Cephalexin 500 MG Capsule 1 capsule Orally Four times a day Medication List reviewed and reconciled with the patient * Allergies:?N.K.D.A.yes[Aller gies Verified] Objective: * Vitals:?Ht: 5 ft 5 in, Wt: 2 00, BMI: 33.28, Shoe size: 13WWW, BP: 116/73 mm Hg, HR: 93 /min, Ht-cm: 165.1 cm, Wt-k.72 kg. * Examination: ???Dermatologic: ?SKIN FINDINGS:?Skin shows sign(s) of, Puncture Wound extending into the Sub Q WITH evidence of possible FOREIGN BODY, but without any sign(s) of infection plantar central heel left, Skin exam reveals Keratotic lesion(s) located at TA T5, SUB MTH (s), 1, Heel(s), B/L.?Vascular: ?DP PULSES (B):? 0/4, B/L.?PT PULSES (B):? 0/4, B/L.?CAPILLARY FILL TIME:? delayed, all digits, B/L.?TROPHIC CONDITION-TEXTURE/ELASTICITY/TURGOR/HAIR GROWTH (B):? decreased, B/L.?TEMPERTURE GRADIENT (C):? decreased, cool to cool, proximal to distal, B/L.?PIGMENTATION:? pale, B/L.?EDEMA (C):? 4/4 B/L.?CLAUDICATION (C):?denies, B/L.?REST PAIN:?denies, B/L.?PEBBLES'S SIGN:?absent, B/L.?PALPABLE CORDS:?absent, B/L.?Nails: ?NAILS are:? Elongated, overgrown, dystrophic, lytic, greater than 3mm thick, discolored and friable with crumbly malodorous subungual debris, with pain on palpation,TA, T1, T2, T3, T4, T5, T6, T7, T8, T9.?Neurological: ?SENSORY:?Neurological exam reveals intact sensorium, pain sensation normal, vibration sensation intact, pinprick sensation is normal in the lower extremities, Pt denies, anesthesia, burning, paresthesia, tingling, B/L.?General Examination: ?GENERAL APPEARANCE:?Reveals a pleasant, alert, well nourished, well- developed, well hydrated individual, who demonstrates proper attention to hygiene/body habitus, and is in no acute distress, Pt serves as own historian for office visit today.?ORIENTED:?person, place, and time.?FOOT EXAM:?Lower Extremity Neurological Exam performed:?Yes ?Footwear Evaluation?Footwear Evaluation performed:?Yes??? Assessment: * Assessment: 1.?Puncture wound with forei gn body, left foot, initial encounter - S91.342A (Primary)???2.?Pain in left toe(s) - M79.675???3.?Pain in right toe(s) - M79.674???4.?Tinea unguium - B35.1???5.?Atherosclerosis of [place] artery of both lower extremities, with unspecified presence of clinical manifestation - I70.203??? Plan: * Treatment: * Procedures:?Debride Nail 6-10:?Nail debridement?Due to the clinical pathology outlined in the exam findings, performance of this nail treatment is medically necessary as its management by an unskilled/untrained nonprofessional would put this patients foot and overall health at risk. Therefore, debridement to affected nail(s), as described in exam (TA, T1, T2, T3, T4, T5, T6, T7, T8, T9, ), was performed exclusively by the physician of record to reduce/remove overall nail length, girth, thickness, subungual debris, and necrotic tissue, by manual and/or electrical means through the use of a nail nipper and/or dremel-type instrument lens grinder, to a more viable healthy nail plate or bed tissue 6- 10 nails in total. Silver nitrate was used for any petechial bleeding as necessary. Definitive antifungal treatment options, both pharmaceutical and surgical, have been reviewed and discussed with the patient. The patient solely prefers the use of intermittent/as needed professional debridement services for their nail condition and understands the need for additional periodic treatments to maintain effectiveness in symptomatic relief - 38843.?Foreign Body Removal:?Anesthesia?was accomplished TOPICALLY with Lidocaine Hydrochloride Jelly 5 percent.?Skin?area prepped with alcohol or betadine , procedure performed under aseptic conditions.?Location of foreign body?As per exam.?Procedure?The wound was explored and a possible ?foreign body ( sliver ) was removed along with devitalized tissue, thru skin and subcutaneous tissue, using sterile 15 blade sharp dissection. A sterile antibiotic ointment dressing was applied and wound care instructions were discussed and dispensed, Patient tolerated procedure well (49625).?Keratoma Treatment:?Parring or Cutting of Benign Hyperkeratotic Lesion(s)?(-57) More than 4 Lesions - Due to the at risk nature of the patients medical condition as documented in the exam findings, performance of this keratoderma treatment is medically necessary as its management by an unskilled/untrained nonprofessional would put this patients foot and overall health at risk. Therefore, the benign hyperkeratotic lesions, ( 6 ) in total, locations as stated and described in the exam (?TA?T5,?SUB MTH (s),?1,?Heel(s),?B/L?), were pared, and/or cut utilizing a sterile 15 blade, tissue nippers, and/or power dremel instrumentation by the physician of record - 49413.? * Procedure Codes:?94359 REMOV AL OF FOOT FOREIGN BODY, Modifiers: XS 57683 DEBRIDE NAIL, 6 OR MORE, Modifiers: XS 20840 TRIM SKIN LESIONS, OVER 4, Modifiers: XS , Q8 * Follow Up:?3 Months * Images: * Sign off status: Completed true * Provider:?Shawanda Montaño, SHAW Date:? Generated for Sebastian rodirguez/Evangelista/Radha on:?01/08/2025 09:25 AM EST History and Physical Notes * HPI (History of Present Illness) Category Sub-Category Detail Notes Category Not es Skin problems Nature: tender Location: Heel/Rearfoot, Left At Risk footcare Pt States Last PCP Visit: Date: Examination Category Sub-Category Detail Notes Category Not es Neurological SENSORY: Neurological exa m reveals intact sensorium, pain sensation normal, vibration sensation intact, pinprick sensation is normal in the lower extremities, Pt denies, anesthesia, burning, paresthesia, tingling, B/L Dermatologic SKIN FINDINGS: Skin shows sign( s) of, Puncture Wound extending into the Sub Q WITH evidence of possible FOREIGN BODY, but without any sign(s) of infection plantar central heel left, Skin exam reveals Keratotic lesion(s) located at TA T5, SUB MTH (s), 1, Heel(s), B/L General Examination GENERAL APPEARANCE: Reveals a pleasant, alert, well nourished, well-developed, well hydrated individual, who demonstrates proper attention to hygiene/body habitus, and is in no acute distress, Pt serves as own historian for office visit today FOOT EXAM: Lower Extremity Neurological Exa m performed:: Yes ORIENTED: person, place, and t [place] Footwear Evaluation Footwear Evaluation performe d:: Yes Vascular DP PULSES (B): 0/4, B/L PT PULSES (B): 0/4, B/L CAPILLARY FILL TIME: delayed, all digits , B/L TEMPERTURE GRADIENT (C): decreased, cool to cool, proximal to distal, B/L TROPHIC CONDITION-TEXTURE/ELASTICITY/TURGOR/HAIR GROWTH (B): decreased, B/L EDEMA (C): 4/4 B/L CLAUDICATION (C): denies, B/L REST PAIN: denies, B/L PEBBLES'S SIGN: absent, B/L PALPABLE CORDS: absent, B/L PIGMENTATION: pale, B/L Nails NAILS are: Elongated, overg rown, dystrophic, lytic, greater than 3mm thick, discolored and friable with crumbly malodorous subungual debris, with pain on palpation,TA, T1, T2, T3, T4, T5, T6, T7, T8, T9
[2025-01-08 11:32] VITALS: BP 110/52; PULSE 52; RESP 16; TEMP 37.1; O2SAT 98; BMI 34.6
--- NOTE | 2025-01-08 11:32 | AM.OFFWIN_ITS ---
Intake Vital Signs 01/08/25 11:32 Height 5 ft 5 in Weight 208 lb BMI 34.6 BP 110/52 L Blood Pressure Location Lt brachial Position Sitting Respiration 16 Pulse 52 Pulse Source Pulse Oximeter Temp 98.7 F Temp Source Oral Pulse Oximetry (%) 98 Oxygen Delivery Method Room Air Intake Visit Reasons: EP ? Cellulitis LT leg Intake Note: Pt is here today c/o ? cellulitis Lt leg x5days Patient Tobacco Use Status: Former Tobacco user Allergies No Known Allergies Allergy (Verified 01/08/25 11:33) HPI EP ? Cellulitis LT leg HPI Details Patient is an 79-year-old male who comes to the walk-in clinic with his daughter, reporting 5 days of left leg increased swelling and redness. He has an extensive history including paroxysmal AFib, skin cancer, hypertension, urology issues, and he does have chronic pedal edema. He reports that his has been hospitalized recently, and he has been on a high sodium diet, eating a lot of prepared and processed foods. His daughter reports that she was not aware of his increased swelling, and just learned about it. He denies fever chills, cough or shortness of breath, chest pain, weakness, dizziness or vertigo, headache, myalgias or malaise, or other significant associated symptoms. [facility] Medical History CARA (acute kidney injury) Kidney stone Kidney cysts Chronic edema HTN (hypertension) Pulmonary HTN Skin cancer BPH (benign prostatic hyperplasia) Osteoarthritis Paroxysmal A-fib Social History Housing: Apartment Patient Tobacco Use Status: Former Tobacco user Tobacco use type: Cigarette e-Cigarette/Vaping Use: Never Used Second Hand Smoke Exposure: No service: Yes Current occupational status: retired Cognitive needs: No Hearing needs: No Vision needs: No Review of Systems Neuro Denies confusion Psych Denies confusion Physical Exam Vital Signs: Last Vital Signs Temp 98.7 F 01/08/25 11:32 Pulse 52 01/08/25 11:32 Resp 16 01/08/25 11:32 BP 110/52 L 01/08/25 11:32 Pulse Ox 98 01/08/25 11:32 Oxygen Delivery Method Room Air 01/08/25 11:32 BMI result Body Mass Index 34.6 Const General: cooperative, comfortable, no acute distress, well developed, alert and well groomed; No in distress, anxious, confusion, ill appearing or tired appearing Nutritional Appearance: average body habitus Orientation/consciousness: patient oriented x3 and No confusion Resp Effort & Inspection: normal respiratory effort, able to speak in complete sentences, normal respiratory pattern, no audible wheezes, no cough, respiratory effort not decreased, no grunting, not labored, no nasal flaring, no respiratory distress, not tachypneic, no tripod positioning and no use of accessory muscles Auscultation: clear to auscultation bilaterally, no crackles, no rales, no rhonchi and no wheezes Cardio Rate: regular rate Skin Other: Patient has 4+ pitting edema bilateral lower extremities, from the knee down to the toes, weeping more so on the left and erythematous and warm to the touch, especially on the left leg. Neurovascularly intact distally Neuro General: patient oriented x3 and No confusion Assessment & Plan Assessment & Plan (1) Pedal edema: Code(s): R60.0 - Localized edema Plan: Patient is an 79-year-old male who comes to the walk-in clinic with his daughter, reporting 5 days of left leg increased swelling and redness. He has an extensive history including paroxysmal AFib, skin cancer, hypertension, urology issues, and he does have chronic pedal edema. He reports that his has been hospitalized recently, and he has been on a high sodium diet, eating a lot of prepared and processed foods. His daughter reports that she was not aware of his increased swelling, and just learned about it. He denies fever chills, cough or shortness of breath, chest pain, weakness, dizziness or vertigo, headache, myalgias or malaise, or other significant associated symptoms. Due to extensiveness of his lower extremity pitting and weeping edema, as well as what looks like the onset of cellulitis to the left side more than the right, I advised that he go to the emergency department for evaluation. His daughter was amenable to that, and agreed to transport him. As he showed no signs or symptoms of pulmonary edema, I agreed that private transport is reasonable, and they said they would be going to [facility]. Expect was called in. Coding Level of Care Code Est Pt Level 4 (88340) Diagnoses Pedal edema R60.0
== END 2025-01-08 12:19 | disposition home or self-care (01) ==
PROVIDERS: PCP Nurse Practitioner Family; Visit Provider Physician Assistant Medical
DX: R60.0 Localized edema (principal)

== ENCOUNTER → 2025-01-08 09:22 | Outpatient (BNVA) | payer MEDICARE, SELFPAY | PROVIDERS: PCP Nurse Practitioner Family | DX: L03.116 Cellulitis of left lower limb (principal) | CPT/HCPCS: 99212 ==

== ENCOUNTER 2025-02-07 14:13 | Outpatient (AMB) | payer MEDICARE, SELFPAY ==
--- NOTE | 2025-02-07 13:48 | MHC.OFFVIS ---
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 The patient had workup for hematuria in the past is currently on finasteride for BPH. Results: PSA 09/15/2024 --<0.02 ng/mL History of Present Illness The patient is an 79-year-old male presenting with urinary symptoms, mainly intermittent urine flow and incontinence, combined with a suspected urinary tract infection. His symptoms involve episodes where his urine flow begins and ceases intermittently. He reports urgency and leakage before reaching the toilet, while experiencing no pain or burning during urination. He is taking finasteride for benign prostatic hyperplasia (BPH), to be administered in the morning. Recent symptoms align with his son-in-law's UTI and lead to consideration of a urine culture. He suspects his urinary issues relate to bladder function, including bladder wall thickening or muscle spasms. Urinary Symptoms Review - Intermittent urine flow characterized by start and stop during urination. - Urgency and urinary incontinence before reaching the bathroom. - No pain or burning upon urination reported. - Taking finasteride for Benign Prostatic Hyperplasia (BPH). - Recent experience with unresolved urinary symptoms. - Suspected Urinary Tract Infection (UTI), prompted by son's UTI symptoms. Results Discussion Notes During our discussion, I explained to the patient that a urine culture will be conducted to assess the possibility of a urinary tract infection, aligning with presented symptoms. We discussed the ongoing urinary retention, incontinence, and associated bladder control issues. I recommended introducing an additional medication to address bladder muscle spasms, thereby diminishing the urgency and potential incidences of leakage. I advised the patient on the importance of adherence to the medication regimen and discussed transitioning to a medication taken in the evening to complement finasteride taken in the morning. A follow-up appointment is scheduled to monitor symptoms and evaluate the effectiveness of new treatment protocols. Plan To address urinary retention, incontinence, and a suspected UTI, a urine culture will confirm potential infections, upon which treatment will adjust. An additional medication is prescribed to decrease bladder muscle spasms and control urgency, scheduled for evening administration alongside morning finasteride to mitigate symptoms. Risks of medication overrelaxation and subsequent impacts were discussed, underlining immediate reporting should excessive retention occur. Thorough treatment benefit and plan comprehension were stressed, with a two-month follow-up in place for progress assessment and recovery tracking, ensuring ongoing communication based on urine culture outcomes. Patient Instructions - Take new prescribed medication every evening alongside morning finasteride. - Monitor for excessive urine retention ? contact immediately if straining occurs. - Report any relief or worsening of symptoms immediately. - Await results from urine culture and follow communication instructions from nursing staff. - Attend follow-up appointment as directed in approximately two months. - Maintain hydration and note any significant urine pattern changes. Patient was informed and verbally consented to the use of an ambient scribe for clinic note documentation during this visit. 09/27/24--follow-up PSA and renal ultrasound. He complains of increased urinary leakage over the last 3 weeks. Bladder scan PVR 16 mL. I will send urine for culture and empirically start Macrobid b.i.d. for 7 days. Discussed PSA and ultrasound results 09/15/2024 PSA--less than 0.02 ng/mL 09/15/24--Renal ultrasound imaging-right kidney simple cysts, left kidney 6 mm stone midpole- stable. 05/28/2024--Ramsey is followed for BPH and kidney stone, microscopic hematuria, he is on Coumadin. He is prescribed Proscar. I reviewed renal ultrasound 09/26/2023 right renal stones stable. He states he has voiding without difficulty. Continue to monitor right kidney stone. Follow-up in 9 months. 01/30/2023--Ramsey is a 77-year-old male who presents to the clinic as new patient evaluation for elevated PSA. The patient denies dysuira. He does not have history of UTI. Smoked one pack a day till the age of 48 years. Occasional postvoid dribbling after voiding. PSA results reviewed?05/27/2022?4.05. Evaluation today: Blood: 1+, Leukocytes: negative. Bladder scan PVR: 0 mL AUA symptom score: 6. Prostate exam: Smooth, no suspicious nodules palpated. Plan: Elevated PSA will monitor. Repeat PSA was ordered. Microscopic hematuria. Urine cytology was ordered. Cystoscopy procedure was explained at length. US renal was ordered. 04/14/23-- Pt being evaluated due to microscopic hematuria and elevated PSA. Repeat PSA results reviewed?03/17/23?2.98 US retroperitoneal--02/10/23-- Bladder: WNL, Findings of right renal stone and right renal cysts. Right kidney is slightly smaller than the left. Evaluation today-- Blood:2+ leukocytes: negative. Cystoscopy findings: No suspicious bladder lesions visualized. Bladder: WNL. prostate - bilobar enlargement, prostate not obstructive PFSH Medical History CARA (acute kidney injury) Kidney stone Kidney cysts Chronic edema HTN (hypertension) Pulmonary HTN Skin cancer BPH (benign prostatic hyperplasia) Osteoarthritis Paroxysmal A-fib Social History Housing: Apartment Patient Tobacco Use Status: Former Tobacco user Tobacco use type: Cigarette e-Cigarette/Vaping Use: Never Used Second Hand Smoke Exposure: No service: Yes Current occupational status: retired Cognitive needs: No Hearing needs: No Vision needs: No Office Procedures Post Void Residual Post Residual Void Post Void Residual (PVR): 0 10299-Reof Void Residual by ultrasound Results AMB Urinalysis, Automated UA Leukoctes 0 Arvind/uL Last Edit by Katarina Fischer on 02/07/25 16:25 UA Nitrite Negative Last Edit by Katarina Fischer on 02/07/25 16:25 UA Urobilinogen 3.5 mg/dL Last Edit by Katarina Fischer on 02/07/25 16:25 UA Protein 1 mg/dL Last Edit by Katarina Fischer on 02/07/25 16:25 UA pH 7.5 Last Edit by Katarina Fischer on 02/07/25 16:25 UA Blood 10 Perico/uL Last Edit by Katarina Fischer on 02/07/25 16:25 UA Specific Vader 1.010 Last Edit by Katarina Fischer on 02/07/25 16:25 UA Ketone Negative Last Edit by Katarina Fischer on 02/07/25 16:25 UA Bilirubin 0 mg/dL Last Edit by Katarina Fischer on 02/07/25 16:25 UA Glucose 0 mg/dL Last Edit by Katarina Fischer on 02/07/25 16:25 Results Reviewed Results Reviewed: Laboratory Last Values Urine pH (Auto) 7.5 02/07/25 16:22 Specific Vader (Auto) 1.010 02/07/25 16:22 Urine Protein (Auto) 1 mg/dL 02/07/25 16:22 Glucose (UA)(Auto) 0 mg/dL 02/07/25 16:22 Urine Ketones (Auto) Negative 02/07/25 16:22 Urine Blood (Auto) 10 Perico/uL 02/07/25 16:22 Urine Nitrite (Auto) Negative 02/07/25 16:22 Urine Bilirubin (Auto) 0 mg/dL 02/07/25 16:22 Urine Urobilinogen (Auto) 3.5 mg/dL 02/07/25 16:22 Leukocyte Esterase (Auto) 0 Arvind/uL 02/07/25 16:22 Assessment & Plan Assessment & Plan Orders: Orders Urine Culture Today N39.0 - Urinary tract infection, site not specified Urine Cytology Today N39.0 - Urinary tract infection, site not specified AMB Urinalysis Automated Today Z13.9 - Encounter for screening, unspecified Medications: New vibegron (Gemtesa) 75 mg PO DAILY 30 tabs 4RF Coding CPT Codes Post Residual Void - PVR CPT Code: 39694-Izix Void Residual by ultrasound ([id number])
--- OUTSIDE RECORDS SUMMARY | 2025-02-07 16:04 | XMS_ITS | Patient Health Record ---
Author Organization [facility] Shila ahmadi Bright Address [address] [facility] [place] [address] Care Team Providers Care Silver Holloware Assembler Name Role Phone Rob Doshi Primary Care Provider Unav ailShawanda Horta Unavailable [phone] Allergies No Known Allergies Reason For Referral [...] Problem Acquired hammer toe of right foot ([id number]) Other hammer toe(s) (acquired), right foot (M20.41) Active confirmed Problem Acquired hammer toe of left foot (9404449440664654) Other hammer toe(s) (acquired), left foot (M20.42) Active confirmed Problem 88311161 Plantar fascial fibromatosis (M72.2) Active confirmed Problem Atherosclerosis of [place] artery of both lower extremities, with unspecified presence of clinical manifestation (I70.203) Active confirmed Problem [id number] Acute gout of l eft foot, unspecified cause (M10.9) Active confirmed Vital Signs Heart Rate 93 /min 12/07/2024 Blood pressure diastolic 73 mm Hg 12/07/2024 Height 5 ft 5 in in 12/07/2024 Blood pressure systolic 116 mm Hg 12/07/2024 Weight 200 lbs 12/07/2024 BMI 33.28 kg/m2 12/07/2024 Encounters Encounter Location Date Provider Diagnosis [facility] [address] [address] 03/16/2024 Shawanda Montaño Atherosclerosis of [place] artery of both lower extremities, with unspecified presence of clinical manifestation I70.203 ; Edema, lower extremity R60.0 ; Tinea unguium B35.1 ; Pain in right toe(s) M79.674 and Pain in left toe(s) M79.[address] [facility] [address] 06/02/2024 Shawanda Montaño Edema, lower extremi ty R60.0 ; Other hammer toe(s) (acquired), right foot M20.41 ; Atherosclerosis of [place] artery of both lower extremities, with unspecified presence of clinical manifestation I70.203 ; Tinea unguium B35.1 ; Pain in right toe(s) M79.674 ; Pain in left toe(s) M79.675 and Other hammer toe(s) (acquired), left foot M20.[address] [address] 08/17/2024 Shawanda Montaño Acute gout of left foot, unspecified cause M10.9 ; Other hammer toe(s) (acquired), right foot M20.41 ; Edema, lower extremity R60.0 ; Atherosclerosis of [place] artery of both lower extremities, with unspecified presence of clinical manifestation I70.203 ; Tinea unguium B35.1 ; Pain in right toe(s) M79.674 ; Pain in left toe(s) M79.675 ; Other hammer toe(s) (acquired), left foot M20.42 and Plantar fascial fibromatosis M72.[address] [address] 12/07/2024 Shawanda Montaño Puncture wound with foreign body, left foot, initial encounter S91.342A ; Pain in left toe(s) M79.675 ; Pain in right toe(s) M79.674 ; Tinea unguium B35.1 and Atherosclerosis of [place] artery of both lower extremities, with unspecified presence of clinical manifestation I70.[address] [address] 03/16/2024 Shawanda Montaño [address] [address] 09/01/2024 Shawanda Montaño [address] [address] 11/16/2024 Shawanda Montaño Assessments Encounter Date Diagnosis (ICD Code) Assessment Notes Treatment Notes Treatment Clinical Notes Section Notes 03/16/2024 Atherosclerosis of [place] artery of both lower extremities, with unspecified [...] extremity (ICD-10 - R60.0) 06/02/2024 Atherosclerosis of [place] artery of both lower extremities, with unspecified presence of clinical manifestation (ICD-10 - I70.203) 03/16/2024 Tinea unguium (ICD-10 - B35.1) 06/02/2024 Tinea unguium (ICD-10 - B35.1) 03/16/2024 Pain in right toe(s) (ICD-10 - M79.674) 08/17/2024 Atherosclerosis of [place] artery of both lower extremities, with unspecified presence of clinical manifestation (ICD-10 - I70.203) 12/07/2024 Tinea unguium (ICD-10 - B35.1) 12/07/2024 Atherosclerosis of [place] artery of both lower extremities, with unspecified [...] Details Provider Name:Shawanda marquez, 03/08/2025 01:00:00 PM, [address] [place] [address], [phone], Insurance Providers Payer Name Payer Address Payer Phone Subscriber Number Group Number Insured Name Patient Relationship to Insured Coverage Start Date Coverage End Date Medicare National [employer] [address] [place] [address] [id number] Ramsey Brown Self - patient is the insured AARP Medicare Complete [address] [address] [place] [address] [id number] Ramsey Brown Self - patient is the insured Medical (General) History Medical History History ICD Code Anxiety Back,Hip,and Knee pain Cancer covid-19 Headaches/Migraines Heart disease Poor circulation Measles Mumps Chicken pox Joint implants/screws Surgical History Surgery Date(Month/Year) hernia knee replacement hip replacement 2021 mass in breast Hospitalization History Reason Date(Month/Year) [facility] - Fall 11/16/24
--- OUTSIDE RECORDS SUMMARY | 2025-02-07 16:04 | XMS_ITS ---
Author Organization [facility] Address [address] [place] [address] Care Team Providers Care Beam Press Operator Name Role Phone Rob Doshi Primary Care Provider Unav ailable Shawanda Montaño Unavailable [phone] REASON FOR VISIT sooner appt Encounters Encounter Location Date Provider Diagnosis [address] [address] 01/05/2025 Shawanda Montaño Plan Of Treatment Next Appt Details Provider Name:Shawanda marquez, 03/08/2025 01:00:00 PM, [address] [place] [address], [phone], Progress Notes * Ramsey ALFREDDOB:1945 (79 yo M)Acc No.[id number]:01/05/2025 Progress Note Patient:?Ramsey ALFRED Provider:?Shawanda Montaño DPM :1945???Age:79 Y???Sex:Male Izaiah e:01/05/2025 [facility] [id number] Pcp:AMA Alvarado Subjective: * Chief Complaints: * [...] Montaño DPM Date:? Generated for Sebastian rodriguez/Evangelista/Radha on:?02/07/2025 04:03 PM EDT
--- OUTSIDE RECORDS SUMMARY | 2025-02-07 16:04 | XMS_ITS | Clinical Summary ---
Author Organization [facility] Address [address] [place] [phone] Phone Care Team Providers Care Correctional Maintenance Technician Name Role Phone Comfort Hussein NP Primary Care Provider [phone] Allergies No known active allergies Medications Jantoven 5 mg tablet TAKE ONE TO ONE AND ONE-HALF TABLETS BY MOUTH EVERY DAY DIRECTED BY [facility] 135 tablet 2 4 [...] ONE TABLET BY MOUTH DAILY DIRECTED BY [facility] Active rosuvastatin (CRESTOR) 40 mg tablet Take 1 tablet (40 mg total) by mouth 1 (one) time each day. Active warfarin (COUMADIN) 5 mg tablet Take 1 to 1.5 tablets daily as directed by [facility] coumadin clinic 2 Active tamsulosin (FLOMAX) 0.4 mg 24 hr capsule Take 1 Capsule by mouth daily. Take 30 mins after same meal every day. 2 Active furosemide (LASIX) 20 mg tablet Take 3 tablets (60 mg total) by mouth 1 (one) time each day in the morning. 90 tablet 5 Active Active Problems Problem Noted Date Diagnosed Date A-fib 10/01/2024 Longstanding persistent atrial fibrillation 03/2022 Coronary artery disease of n ative artery of [place] heart with stable angina pectoris 05/23/2022 Overview (10/03/2024): Last Assessment & Plan: At his heaviest level of activity walking in the [employer] and walking in the practice several yards [...] Encounters Date Type Department Care Team Description 02/01/2025 Anticoagulation - Warfarin Visit [facility] [address] [place] [address] Joana Leggett MD Atrial fibrillation, unspecified type (CMS/HCC) (Primary Dx) 01/18/2025 Anticoagulation - Warfarin Visit [facility] [address] [place] [address] Joana Leggett MD Atrial fibrillation, unspecified type (CMS/HCC) (Primary Dx) 01/11/2025 Anticoagulation - Warfarin Visit [facility] [address] [place] [address] Joana Leggett MD Atrial fibrillation, unspecified type (CMS/HCC) (Primary Dx) 01/08/2025 1:13 PM EST - 01/08/2025 4:44 PM EST [facility] Emergency [address] [place] [id number] Tonio Gallegos MD Lower extremity edema (Primary Dx) Discharge Disposition: Home or Self Care 01/04/2025 Anticoagulation - Warfarin Visit [facility] [address] [place] [address] Joana Leggett MD Atrial fibrillation, unspecified type (CMS/HCC) (Primary Dx) 12/31/2024 Anticoagulation - Warfarin Visit [facility] [address] [place] [address] Joana Leggett MD Atrial fibrillation, unspecified type (CMS/HCC) (Primary Dx) 12/24/2024 Anticoagulation - Warfarin Visit [facility] [address] [place] [phone] Joana Leggett MD Atrial fibrillation, unspecified type (CMS/HCC) (Primary Dx) 12/23/2024 Anticoagulation - Warfarin Visit [facility] [address] [place] [address] Damir Pes[place], [place] Atrial fibrillation, unspecified type (CMS/HCC) (Primary Dx) 12/14/2024 Anticoagulation - Warfarin Visit [facility] [address] [place] [address] Joana Leggett MD Atrial fibrillation, unspecified type (CMS/HCC) (Primary Dx) 12/06/2024 Anticoagulation - Warfarin Visit [facility] [address] [place] [address] Joana Leggett MD Atrial fibrillation, unspecified type (CMS/HCC) (Primary Dx) 11/26/2024 Telephone [facility] [address] [place] [address] Joana Leggett MD No Show 11/15/2024 Anticoagulation - Warfarin Visit [facility] [address] [place] [address] Joana Leggett MD Atrial fibrillation, unspecified type (CMS/HCC) (Primary Dx) from Last 3 Months Surgical History Surgery Date Site/Laterality Comments TOTAL KNEE ARTHROPLASTY PROCEDURE: [place] ARTHRP KNE CONDYLE&PLATU MEDIAL&LAT COMPARTMENTS Medical History Medical History Date Comments Hyperlipidemia DX:Hyperlipidemi a Essential hypertension DX:Essent ial hypertension Chest pain DX:Chest pain Electrolyte disorder DX:Electrol yte disorder Hyperthyroidism DX:Hyperthyroidi sm Anemia DX:Anemia Atrial fibrillation (CMS/HCC) Family History Medical History Relation Name Comments [...] Sign Reading Time Taken Comments Blood Pressure 104/74 01/08/2025 2:05 PM EST Pulse 59 01/08/2025 2:05 PM EST Temperature 36.3 ??C (97.3 ??F) 01/08/2025 2:05 PM ES T Respiratory Rate 18 01/08/2025 2:05 PM EST Oxygen Saturation 97% 01/08/2025 2:05 PM EST Inhaled Oxygen Concentration - - Weight 94.3 kg (208 lb) 01/08/2025 12:53 PM EST Height 165.1 cm (5' 5 ) 01/08/2025 12:53 PM EST Body Mass Index 34.61 01/08/2025 12:53 PM EST Plan of Treatment Upcoming Encounters Date Type Department Care Team (Late st Contact Info) Description 03/07/2025 9:10 AM EDT Office Visit [facility] [address] [facility] [address] [place] [address] Cj Booth, MAEYA [address] [place] [address] Health Maintenance Due Date Last Done Comments [...] history exists Hypertension/CHF/CAD Annual BMP Blood Test 01/08/2026 01/08/2025, 11/07/2024, 09/02/2023 Cholesterol Screening (Lipid Panel) 09/02/2028 [...] Diagnosis Comments PROTHROMBIN TIME WITH INR Routine 02/01/2025 12:28 PM EDT Atrial fibrillation (CMS/HCC) PROTHROMBIN TIME WITH INR Routine 01/18/2025 12:35 PM EDT Atrial fibrillation (CMS/HCC) PROTHROMBIN TIME WITH INR Routine 01/11/2025 12:02 PM EST Atrial fibrillation (CMS/HCC) ECG ANNOTATED 01/10/2025 PROTHROMBIN TIME WITH INR STAT 01/08/2025 2:46 PM EST TROPONIN I HIGH SENSITIVITY STAT 01/08/2025 2:23 PM EST ECG 12-LEAD STAT 01/08/2025 1:59 PM EST XR CHEST 2 VIEWS STAT 01/08/2025 1:48 PM EST CBC WITH AUTO DIFFERENTIAL STAT 01/08/2025 1:08 PM EST B-TYPE NATRIURETIC PEPTIDE STAT 01/08/2025 1:08 PM EST MAGNESIUM STAT 01/08/2025 1:08 PM EST LIPASE STAT 01/08/2025 1:08 PM EST COMPREHENSIVE METABOLIC PANEL STAT 01/08/2025 1:08 PM EST CBC AND DIFFERENTIAL STAT 01/08/2025 1:08 PM EST TROPONIN I HIGH SENSITIVITY STAT 01/08/2025 1:08 PM EST PROTHROMBIN TIME WITH INR Routine 01/04/2025 12:31 [...] 11/12/2024 1:31 PM EST Atrial fibrillation (CMS/HCC) LIPID PANEL Routine 09/02/2023 from Last 3 Months or Most Recently Relevant to Health Maintenance Results * (ABNORMAL) Prothrombin time with INR (02/01/2025 12:28 PM EDT) Only the most recent of11 resultswithin the time period is included. [facility] Protime 27.1(H) 10.6 - 13.9 sec LAB COAGULATION METHOD 02/01/2025 2:08 PM EDT [facility] INR 2.2 LAB COAGULATION METHOD 02/01/2025 2:08 PM EDT [facility] Blood Venous blood specimen / Unknown Venipuncture / Unknown 02/01/2025 12:28 PM EDT 02/01/2025 12:59 PM EDT Joana Leggett MD LAB BLOOD ORDERABLES Final Resu lt Performing Organization Address City/[facility]/ZIP Co de Phone Number [facility] [address] [place] [address], * ECG-Annotated (01/10/2025) Rigoberto Osborn MD ECG ORDERABLES Final Result * Troponin I high sensitivity (01/08/2025 2:23 PM EST) Only the most recent of2 resultswithin the time period is included. [facility] High Sensitivity Troponin I 10 <=79 ng/L LAB CHEMISTRY METHOD 01/08/2025 3:05 PM EST [facility] Blood Venous blood specimen / Unknown Venipuncture / Unknown 01/08/2025 2:23 PM EST 01/08/2025 2:38 PM EST Narrative [facility] - 01/08/2025 3:05 PM EST High levels of biotin in samples may falsely decrease hsTroponin values. ??Use caution when interpreting hsTroponin results in patients taking biotin who exhibit renal impairment (eGFR <60) or in patients taking more than 20 mg/day of biotin. Tonio Gallegos MD LAB BLOOD ORDERABLES Final Resu lt [facility] [address] [place] [address], [place] [phone] * ECG 12 lead (01/08/2025 1:59 PM EST) Ventricular Rate ECG 67 BPM GEMUSE Atrial Rate 67 BPM GEMUSE P-R Interval 160 ms GEMUSE QRS Duration 94 ms GEMUSE Q-T Interval 436 ms GEMUSE QTc 460 ms GEMUSE P Wave Fabius 43 degrees GEMUSE R Fabius 49 degrees GEMUSE T Fabius 36 degrees GEMUSE ECG Interpretation Sinus rhythm with ??Premature atrial complexes Incomplete right bundle branch block ST and T wave abnormality, consider anterior ischemia Prolonged QT Abnormal ECG When compared with ECG of 28-JUN-2024 18:20, No significant changes are noted Confirmed by COMFORT PANTOJA ([id number]) on 01/08/2025 8:42:46 PM GEMUSE 01/08/2025 1:59 PM EST 01/08/2025 8:42 PM EST us Tonio Gallegos MD ECG ORDERABLES Final Result GEMUSE * XR Chest 2 Views (01/08/2025 1:48 PM EST) Anatomical Region Laterality Modality Body Radiographic Alfreda ging 01/08/2025 1:52 PM EST Impressions 01/08/2025 2:03 PM EST FINDINGS/IMPRESSION: Elevated left diaphragm. ??No pneumonia or pulmonary edema. ??No pleural effusion or pneumothorax. ??Cardiac silhouette is normal in size. ??Degenerative changes seen throughout the bones. -------- FINAL REPORT -------- Dictated By: MINA OLMEDO Dictated Date: 01/08/2025 13:52 ET Assigned Physician: MINA OLMEDO Reviewed and Electronically Signed By: MINA OLMEDO Signed Date: 01/08/2025 14:03 ET Workstation ID: [id number] Transcribed By: Self Edit Transcribed Date: 01/08/2025 14:02 ET Narrative 01/08/2025 2:03 PM EST XR CHEST 2 VIEWS INDICATION: ??Chest pain TECHNIQUE: XR CHEST 2 VIEWS COMPARISON: 06/28/2024. Procedure Note Mina Olmedo MD - 01/08/2025 XR CHEST 2 VIEWS INDICATION: Chest pain TECHNIQUE: XR CHEST 2 VIEWS COMPARISON: 06/28/2024. IMPRESSION: FINDINGS/IMPRESSION: Elevated left diaphragm. No pneumonia or pulmonaryedema. No pleural effusion or pneumothorax. Cardiac silhouette is normalin size. Degenerative changes seen throughout the bones. -------- FINAL REPORT -------- Dictated By: MINA OLMEDO Dictated Date: 01/08/2025 13:52 ET Assigned Physician: MINA OLMEDO Reviewed and Electronically Signed By: MINA OLMEDO Signed Date: 01/08/2025 14:03 ET Workstation ID: [id number] Transcribed By: Self Edit Transcribed Date: 01/08/2025 14:02 ET Tonio Gallegos MD IMG XR PROCEDURES Final Result * (ABNORMAL) CBC auto differential (01/08/2025 1:08 PM EST) WBC 7.3 4.8 - 10.8 K/mcL LAB HEMETOLOGY METHOD 01/08/2025 1:33 PM [facility] RBC 4.20(L) 4.50 - 5.50 M/mcL LAB HEMETOLOGY METHOD 01/08/2025 1:33 PM [facility] Hemoglobin 11.6(L) 13.5 - 17.5 g/dL LAB HEMETOLOGY METHOD 01/08/2025 1:33 PM [facility] Hematocrit 37.1(L) 42.0 - 54.0 % LAB HEMETOLOGY METHOD 01/08/2025 1:33 PM [facility] MCV 88.8 79.0 - 98.0 FL LAB HEMETOLOGY METHOD 01/08/2025 1:33 PM [facility] MCH 27.8 27.0 - 32.0 pcg LAB HEMETOLOGY METHOD 01/08/2025 1:33 PM [facility] MCHC 31.3(L) 32.0 - 37.0 g/dL LAB HEMETOLOGY METHOD 01/08/2025 1:33 PM [facility] RDW 16.9(H) 11.0 - 15.0 % LAB HEMETOLOGY METHOD 01/08/2025 1:33 PM [facility] Platelets 220 130 - 400 K/mcL LAB HEMETOLOGY METHOD 01/08/2025 1:33 PM [facility] MPV 10.2 7.0 - 11.0 FL LAB HEMETOLOGY METHOD 01/08/2025 1:33 PM [facility] NRBC 0.0 <1.0 % LAB HEMETOLOGY METHOD 01/08/2025 1:33 PM [facility] NRBC Absolute 0.00 <0.10 K/mcL LAB HEMETOLOGY METHOD 01/08/2025 1:33 PM [facility] Neutrophils Relative 71.7 % LAB HEMETOLOGY METHOD 01/08/2025 1:33 PM [facility] Lymphocytes Relative 17.6 % LAB HEMETOLOGY METHOD 01/08/2025 1:33 PM [facility] Monocytes Relative 8.0 % LAB HEMETOLOGY METHOD 01/08/2025 1:33 PM [facility] Eosinophils Relative 1.6 % LAB HEMETOLOGY METHOD 01/08/2025 1:33 PM [facility] Basophils Relative 1.0 % LAB HEMETOLOGY METHOD 01/08/2025 1:33 PM [facility] Immature Granulocytes Relative 0.1 % LAB HEMETOLOGY METHOD 01/08/2025 1:33 PM [facility] Neutrophils Absolute 5.25 1.50 - 7.00 K/mcL LAB HEMETOLOGY METHOD 01/08/2025 1:33 PM EST [facility] Lymphocytes Absolute 1.29 1.00 - 5.00 K/mcL LAB HEMETOLOGY METHOD 01/08/2025 1:33 PM EST [facility] Monocytes Absolute 0.59 0.20 - 1.00 K/mcL LAB HEMETOLOGY METHOD 01/08/2025 1:33 PM EST [facility] Eosinophils Absolute 0.12 0.00 - 0.50 K/mcL LAB HEMETOLOGY METHOD 01/08/2025 1:33 PM EST [facility] Basophils Absolute 0.07 0.00 - 0.20 K/mcL LAB HEMETOLOGY METHOD 01/08/2025 1:33 PM EST [facility] Immature Granulocytes Absolute 0.01 0.00 - 0.03 K/mcL LAB HEMETOLOGY METHOD 01/08/2025 1:33 PM EST [facility] Blood Venous blood specimen / Unknown Venipuncture / Unknown 01/08/2025 1:08 PM EST 01/08/2025 1:24 PM EST Tonio Gallegos MD LAB BLOOD ORDERABLES Final Resu lt [facility] [address] [place] [address], * (ABNORMAL) B-type natriuretic peptide (01/08/2025 1:08 PM EST) BNP 201(H) <=100 pcg/mL LAB CHEMISTRY METHOD 01/08/2025 2:05 PM EST [facility] Blood Venous blood specimen / Unknown Venipuncture / Unknown 01/08/2025 1:08 PM EST 01/08/2025 1:24 PM EST Tonio Gallegos MD LAB BLOOD ORDERABLES Final Resu lt [facility] [address] [place] [address], * Magnesium (01/08/2025 1:08 PM EST) [facility] Magnesium 2.3 1.9 - 2.6 mg/dL LAB CHEMISTRY METHOD 01/08/2025 2:00 PM EST [facility] Blood Venous blood specimen / Unknown Venipuncture / Unknown 01/08/2025 1:08 PM EST 01/08/2025 1:24 PM EST us Tonio Gallegos MD LAB BLOOD ORDERABLES Final Resu lt Performing Organization Address [facility]/ZIP Co de Phone Number [facility] [address] [place] [address], [place] [phone] * Lipase (01/08/2025 1:08 PM EST) [facility] Lipase 38 13 - 75 unit/L LAB CHEMISTRY METHOD 01/08/2025 2:00 PM EST [facility] Blood Venous blood specimen / Unknown Venipuncture / Unknown 01/08/2025 1:08 PM EST 01/08/2025 1:24 PM EST us Tonio Gallegos MD LAB BLOOD ORDERABLES Final Resu lt Performing Organization Address City/[facility]/ZIP Co de Phone Number [facility] [address] [place] [address], [place] [phone] * (ABNORMAL) Comprehensive metabolic panel (01/08/2025 1:08 PM EST) [facility] Sodium 140 133 - 145 mmol/L LAB CHEMISTRY METHOD 01/08/2025 2:00 PM [facility] Potassium 3.8 3.5 - 5.5 mmol/L LAB CHEMISTRY METHOD 01/08/2025 2:00 PM EST [facility] Chloride 108 96 - 110 mmol/L LAB CHEMISTRY METHOD 01/08/2025 2:00 PM [facility] CO2 25 21 - 32 mmol/L LAB CHEMISTRY METHOD 01/08/2025 2:00 PM [facility] Anion Gap 7 3 - 11 LAB CHEMISTRY METHOD 01/08/2025 2:00 PM [facility] Glucose 95 70 - 100 mg/dL LAB CHEMISTRY METHOD 01/08/2025 2:00 PM [facility] BUN 13 5 - 25 mg/dL LAB CHEMISTRY METHOD 01/08/2025 2:00 PM [facility] Creatinine 0.77 0.70 - 1.30 mg/dL LAB CHEMISTRY METHOD 01/08/2025 2:00 PM [facility] eGFR 90 >=60 mL/min/1. 73m2 LAB CHEMISTRY METHOD 01/08/2025 2:00 PM [facility] Comment:Calculation based on the??Chronic Kidney Disease Epidemiology Collaboration (CKD-EPI) equation refit??without adjustment for race. BUN/Creatinine Ratio 16.9 LAB CHEMISTRY METHOD 01/08/2025 2:00 PM [facility] Calcium 9.5 8.5 - 10.5 mg/dL LAB CHEMISTRY METHOD 01/08/2025 2:00 PM [facility] AST (SGOT) 26 10 - 42 unit/L LAB CHEMISTRY METHOD 01/08/2025 2:00 PM [facility] ALT (SGPT) 25 10 - 60 unit/L LAB CHEMISTRY METHOD 01/08/2025 2:00 PM [facility] Alkaline Phosphatase 78 42 - 121 unit/L LAB CHEMISTRY METHOD 01/08/2025 2:00 PM [facility] Total Protein 6.8 6.0 - 8.0 g/dL LAB CHEMISTRY METHOD 01/08/2025 2:00 PM [facility] Albumin 3.1(L) 3.2 - 5.0 g/dL LAB CHEMISTRY METHOD 01/08/2025 2:00 PM EST [facility] Total Bilirubin 0.5 0.0 - 1.4 mg/dL LAB CHEMISTRY METHOD 01/08/2025 2:00 PM EST [facility] Blood Venous blood specimen / Unknown Venipuncture / Unknown 01/08/2025 1:08 PM EST 01/08/2025 1:24 PM EST Tonio Gallegos MD LAB BLOOD ORDERABLES Final Resu lt [facility] [address] [place] [address], * (ABNORMAL) Lipid panel (09/02/2023) LDL/HDL Ratio 3 0 - 4 Triglycerides 88 0 - 150 mg/dL Cholesterol 191 0 - 200 mg/dL HDL 73 >=40 mg/dL LDL Cholesterol 101(A) 0 - 100 mg/dL Blood Venous blood specimen / Unknown Historical Provider LAB BLOOD ORDERABLES Bridget l Result from Last 3 Months or Most Recently Relevant to Health Maintenance Insurance MEDICARE [facility] Care Teams Correctional Maintenance Technician Relationship Specialty Start Date End Date Comfort Hussein NP [address] [place], [place] PCP - General 04/19/22
--- OUTSIDE RECORDS SUMMARY | 2025-02-07 16:04 | XMS_ITS ---
Author Organization [facility] [place] Address [address] [facility] [place] [address] Care Team Providers Care Central Service Technician Name Role Phone Rob Doshi Primary Care Provider Unav ailable Shawanda Montaño Unavailable [phone] Allergies No Known Allergies REASON FOR VISIT [...] 12/07/2024 Encounters Encounter Location Date Provider Diagnosis [facility] [place] [address] [place] [address] 12/07/2024 Shawanda Montaño Puncture wound with foreign body, left foot, initial encounter S91.342A ; Pain in left toe(s) M79.675 ; Pain in right toe(s) M79.674 ; Tinea unguium B35.1 and Atherosclerosis of citizen [place] artery of both lower extremities, with unspecified [...] unguium (ICD-10 - B35.1) 12/07/2024 Atherosclerosis of [place] artery of both lower extremities, with unspecified presence of clinical manifestation (ICD-10 - I70.203) Plan Of Treatment Next Appt Details Follow Up: 3 Months, Reason: Provider Name:Shawanda marquez, 03/08/2025 01:00:00 PM, [address] [place], [address], Procedure Notes * Category Sub-Category Detail Notes [...] discussed and dispensed, Patient tolerated procedure well (35924) Location of foreign body As per exam [...] use of a nail nipper and/or dremel-type organ grinder, to a more viable healthy nail [...] to maintain effectiveness in symptomatic relief - 84615 Keratoma Treatment Parring or Cutting o f [...] instrumentation by the physician of record - 44468 Progress Notes * Carlitos ALFRED:1945 (79 yo M)Acc No.[id number]:12/07/2024 Progress Note Patient:?Ramsey ALFRED Provider:?Shawanda Montaño DPM :1945???Age:79 Y???Sex:Male Izaiah e:12/07/2024 Address:[address] [place] [address], [address], [id number] Pcp:AMA Alvarado Subjective: * Chief Complaints: * [...] yes, walking. ?Marital status: . ?Occupation: Retired- [employer]. ???Drug/Alcohol:?AUDIT-C (Standard)?Did you have a [...] toe(s) - M79.674???4.?Tinea unguium - B35.1???5.?Atherosclerosis of citizen [place] artery of both lower extremities, with unspecified [...] use of a nail nipper and/or dremel-type organ grinder, to a more viable healthy nail [...] to maintain effectiveness in symptomatic relief - 52511.?Foreign Body Removal:?Anesthesia?was accomplished TOPICALLY with Lidocaine Hydrochloride [...] discussed and dispensed, Patient tolerated procedure well (42174).?Keratoma Treatment:?Parring or Cutting of Benign Hyperkeratotic Lesion(s)?(-57) [...] instrumentation by the physician of record - 19912.? * Procedure Codes:?45394 REMOV AL OF FOOT FOREIGN BODY, Modifiers: XS 11555 DEBRIDE NAIL, 6 OR MORE, Modifiers: XS 47035 TRIM SKIN LESIONS, OVER 4, Modifiers: XS , Q8 * Follow Up:?3 Months * Images: * Sign off status: Completed true * Provider:?Shawanda Montaño, SHAW Date:? Generated for Sebastian rodriguez/Evangelista/Allysonitting on:?02/07/2025 04:04 PM EDT History and Physical Notes * HPI (History of Present Illness) Category Sub-Category Detail Notes Category Not es Skin problems Nature: tender Location: Heel/Rearfoot, Left At Risk footcare Pt States Last PCP Visit: Date: 4 Examination Category Sub-Category Detail Notes Category Not [...]
--- OUTSIDE RECORDS SUMMARY | 2025-02-07 16:04 | XMS_ITS ---
Author Organization [facility] Care Team Providers Care Maintainability Engineer Name Role Phone Jodi Ovalle Unavailable Unavailable Beverly Oakley Unavailable Unavailable Trisha Zamarripa Unavailable Unavailable Santa Coats Unavailable Unavailable Allergies and adverse reactions No Known Allergies Care Team Name Role Address Phone Organization Dates Jodi Ovalle PCP [address] [place] [address], [facility], [facility] (Office): : [facility] 06/11/2020 - 06/27/2020 Beverly Oakley Attending Physician [address] [place] [address], [facility] (Office): : [facility] 06/11/2020 - 06/27/2020 Trisha Zamarripa Attending Physician [address] [place] [address], [facility] (Office): : [phone] [facility] 06/11/2020 - 06/27/2020 Santa Coats Attending Physician [address] [place] [address], [id number], [place] (Office): : [facility] 06/11/2020 - 06/27/2020 Goals Section Description Status Target Date ADL's MOBILITY IMPAIRED-Improve skills to achiev e discharge Active 07/05/2020 BEHAVIOR/ANXIETY/AGITATION - reduce symptoms wit hout complications Active 07/05/2020 BOWEL/BLADDER IMPAIRMENT: Achieve continence and prevent infection Active 07/05/2020 EDUCATION - Resident/caregiv er will achieve desired or required knowledge for discharge Active 07/05/2020 FALL RISK - Resident will be free of injury from fall High Risk (full score) Fall in past 6 months Active 07/05/2020 I hope that I can be success fully resuscitated in the event my heart stops. Active 07/05/2020 My family and I will participate in my discharge planning. Active 07/05/2020 PAIN- ALTERATION IN COMFORT- Reduce pain/remain pain free Active 07/05/2020 Patient will maintain best function for abilitie s Active 07/05/2020 SKIN IMPAIRMENT- Skin will r emain intact-Potential: Goins Scale Risk: Moderate = 11-15; High = 5-10 Active 07/05/2020 The resident will have intac t skin, free of redness, blisters or discoloration by/through review date. Active 07/05/2020 The resident will improve cu rrent level of function in (SPECIFY ADLs) through the review date. Resident will be able to: (SPECIFY) Active 07/05/2020 The resident will not sustai n serious injury through the review date. Active 07/05/2020 Will have meal intake >75% W ill tolerate a liberalized diet W ill have stable weight Active 07/05/2020 Mental Status Section Date Assessment Total Score Description 06/27/2020 BIMS 15 cognitively int act CAM 0 No delirium ind icated PHQ-9 00 06/17/2020 BIMS 15 cognitively int act CAM 0 No delirium ind icated PHQ-9 00 Problems Problem # Description Date of onset Resolved Date Code CodeSystem Concern Status 1 AFTERCARE FOLLOWING EXPLANTATION OF HIP JOINT PROSTHESIS 06/10/[address] active 2 ANEMIA, UNSPECIFIED 06/10/[address] active 3 BENIGN PROSTATIC HYPERPLASIA WITH LOWER URINARY TRACT SYMPTOMS 06/10/[address] active 4 ENCOUNTER FOR OTHER SPECIFIED SURGICAL AFTERCARE 06/10/[address] active 5 ESSENTIAL (PRIMARY) HYPERTENSION 06/10/[address] active 6 MUSCLE WEAKNESS (GENERALIZED) 06/10/[address] active 7 OTHER ABNORMALITIES OF GAIT AND MOBILITY 06/10/[address] active 8 PRESENCE OF LEFT ARTIFICIAL HIP JOINT 06/10/[address] active 9 PULMONARY HYPERTENSION, UNSPECIFIED 06/10/[address] active 10 PURE HYPERCHOLESTEROLEMI A, UNSPECIFIED 06/10/[address] active 11 UNILATERAL PRIMARY OSTEOARTHRITIS, LEFT HIP 06/10/[address] active 12 UNSPECIFIED ATRIAL FIBRILLATION 06/10/[address] active Reason for Referral No Reasons for Referral Entered Social History Social History Observation Description Start Date End Date Code Code System Current Smoking Status Tobacco smoking consumption unknown 001192588 SNOMED CT Sex Assigned At Male 1945 47007-1 [facility] Vital Signs Code Code System Vitals Name Values and Units Timing Information 90403-7 [facility] Pain Level Value=1.0 06/27/2020 9279-1 [facility] Respiratory Rate Value=8.0 Units=/mi n 06/27/2020 8462-4 [facility] Blood Pressure-Diastolic Value=70 Un its=mmHg 06/27/2020 8480-6 INC Blood Pressure-Systolic Fxfez=650 Un its=mmHg 06/27/2020 8310-5 [facility] Body Temperature Value=98.4 Units=?? F 06/27/2020 8867-4 [facility] Heart rate Value=71.0 Units=/min 06522-0 [facility] O2 % BldC Oximetry Value=91.0 Units= % 06/27/2020 15939-8 [facility] Weight Kwcng=286.0 Units=Lbs 8302-2 [facility] Height Value=70.0 Units=Inches 06/11/2020
--- OUTSIDE RECORDS SUMMARY | 2025-02-07 16:04 | XMS_ITS ---
Author Organization [facility] Address [address] [facility] [place] [address] Care Team Providers Care Whiting Can Worker Name Role Phone Rob Doshi Primary Care Provider Unav ailable Shawanda Montaño Unavailable [phone] Medications Medication SIG (Take, Route, Frequency, Duration) [...] Active Encounters Encounter Location Date Provider Diagnosis [facility] [address] [place] [address] 11/16/2024 Shawanda Montaño Plan Of Treatment Next Appt Details Provider Name:Shawanda marqeuz, 03/08/2025 01:00:00 PM, [address] [place] [address], [phone], Progress Notes * Ramsey ALFREDDOB:1945 (79 yo M)Acc No.[id number]:11/16/2024 Progress Note Patient:Ramsey DAS Provider:?Shawanda Montaño DPM :1945???Age:79 Y???Sex:Male Izaiah e:11/16/2024 Address:[address] [place] [address], [facility] Pcp:Rob Hussein NP-AN Subjective: * Chief Complaints: [...] Montaño DPM Date:?05/2025 Generated for Sebastian rodriguez/Evangelista/Allysonitting on:?02/07/2025 04:03 PM EDT History and Physical Notes * HPI (History of Present Illness) Category Sub-Category Detail Notes Category Not es At Risk footcare Pt States Last PCP Visit: Date: 4
== END 2025-02-07 14:42 | disposition home or self-care (01) ==
LOC: HO.HUSH 14:13
PROVIDERS: PCP Nurse Practitioner Family; Visit Provider Urology
DX: Z13.9 Encounter for screening, unspecified (principal)

== ENCOUNTER 2025-02-07 14:13 | Outpatient (REF) | payer MEDICARE, SELFPAY ==
--- OUTSIDE RECORDS SUMMARY | 2025-02-07 16:53 | XMS_ITS ---
Author Organization [facility] Care Team Providers Care Global Logistics Manager Name Role Phone Jodi Ovalle Unavailable Unavailable Beverly Oakley Unavailable Unavailable Trisha Zamarripa Unavailable Unavailable Santa Coats Unavailable Unavailable Allergies and adverse reactions No Known Allergies Care Team Name Role Address Phone Organization Dates Jodi Ovalle PCP [address] [place] [address], [facility], [facility] (Office): : [facility] 06/11/2020 - 06/27/2020 Beverly Oakley Attending Physician [address] [place] [address], [facility] (Office): : [facility] 06/11/2020 - 06/27/2020 Trisha Zamarripa Attending Physician [address] [place] [address], [facility] (Office): : [facility] 06/11/2020 - 06/27/2020 Santa Coats Attending Physician [address] [place] [address], [address], [place] (Office): : [facility] 06/11/2020 - 06/27/2020 Goals [...] FOLLOWING EXPLANTATION OF HIP JOINT PROSTHESIS 06/10/[address] active 2 ANEMIA, UNSPECIFIED 06/10/[address] active 3 BENIGN PROSTATIC HYPERPLASIA WITH LOWER URINARY TRACT SYMPTOMS 06/10/[address] active 4 ENCOUNTER FOR OTHER SPECIFIED SURGICAL AFTERCARE 06/10/[address] active 5 ESSENTIAL (PRIMARY) HYPERTENSION 06/10/[address] active 6 MUSCLE WEAKNESS (GENERALIZED) 06/10/[address] active 7 OTHER ABNORMALITIES OF GAIT AND MOBILITY 06/10/[address] active 8 PRESENCE OF LEFT ARTIFICIAL HIP JOINT 06/10/[address] active 9 PULMONARY HYPERTENSION, UNSPECIFIED 06/10/[address] active 10 PURE HYPERCHOLESTEROLEMI A, UNSPECIFIED 06/10/[address] active 11 UNILATERAL PRIMARY OSTEOARTHRITIS, LEFT HIP 06/10/[address] active 12 UNSPECIFIED ATRIAL FIBRILLATION 06/10/[address] active Reason for Referral No Reasons for Referral Entered Social History Social History Observation Description Start Date End Date Code Code System Current Smoking Status Tobacco smoking consumption unknown 033351735 SNOMED CT Sex Assigned At Male 1945 49107-3 [facility] Vital Signs Code Code System Vitals Name Values and Units Timing Information 13312-2 [facility] Pain Level Value=1.0 06/27/2020 9279-1 [facility] Respiratory Rate Value=8.0 Units=/mi n 06/27/2020 8462-4 [facility] Blood Pressure-Diastolic Value=70 Un its=mmHg 06/27/2020 8480-6 INC Blood Pressure-Systolic Cccrp=813 Un its=mmHg 06/27/2020 8310-5 [facility] Body Temperature Value=98.4 Units=?? F 06/27/2020 8867-4 [facility] Heart rate Value=71.0 Units=/min 08061-4 [facility] O2 % BldC Oximetry Value=91.0 Units= % 06/27/2020 51010-8 [facility] Weight Qzfrh=401.0 Units=Lbs 8302-2 [facility] Height Value=70.0 Units=Inches 06/11/2020
--- OUTSIDE RECORDS SUMMARY | 2025-02-07 16:53 | XMS_ITS | Clinical Summary ---
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 05/23/2022 Overview (10/03/2024): Last Assessment & Plan: At his heaviest level of activity walking in the [employer] and walking in the practice several yards [...] Team Description 02/01/2025 Anticoagulation - Warfarin Visit [facility] [address] [place] [address] Joana Leggett MD Atrial fibrillation, unspecified type (CMS/HCC) (Primary Dx) 01/18/2025 Anticoagulation - Warfarin Visit [facility] - [address] [place] [address] Joana Leggett MD Atrial fibrillation, unspecified type (CMS/HCC) (Primary Dx) 01/11/2025 Anticoagulation - Warfarin Visit [facility] - [address] [place] [address] Joana Leggett MD Atrial fibrillation, unspecified type (CMS/HCC) (Primary Dx) 01/08/2025 1:13 PM EST - 01/08/2025 4:44 PM EST [facility] [address] [place] [id number] Tonio Gallegos MD Lower extremity edema (Primary Dx) Discharge Disposition: Home or Self Care 01/04/2025 Anticoagulation - Warfarin Visit [facility] - [address] [place] [address] Joana Lgegett MD Atrial fibrillation, unspecified type (CMS/HCC) (Primary Dx) 12/31/2024 Anticoagulation - Warfarin Visit [facility] - [address] [place] [address] Joana Leggett MD Atrial fibrillation, unspecified type (CMS/HCC) (Primary Dx) 12/24/2024 Anticoagulation - Warfarin Visit [facility] - [address] [place] [id number] Joana Leggett MD Atrial fibrillation, unspecified type (CMS/HCC) (Primary Dx) 12/23/2024 Anticoagulation - Warfarin Visit [facility] [address] [place] [address] Dam[place], [place] Atrial fibrillation, unspecified type (CMS/HCC) (Primary Dx) 12/14/2024 Anticoagulation - Warfarin Visit [facility] [address] [place] [address] Joana Leggett MD Atrial fibrillation, unspecified type (CMS/HCC) (Primary Dx) 12/06/2024 Anticoagulation - Warfarin Visit [facility] [address] [place] [address] Joana Leggett MD Atrial fibrillation, unspecified type (CMS/HCC) (Primary Dx) 11/26/2024 Telephone [facility] [address] [place] [address] Joana Leggett MD No Show 11/15/2024 Anticoagulation - Warfarin Visit [facility] [address] [place] [address] Joana Leggett MD Atrial fibrillation, unspecified type (CMS/HCC) (Primary Dx) from Last 3 Months Surgical History Surgery Date Site/Laterality Comments TOTAL KNEE ARTHROPLASTY PROCEDURE: [place] ARTHRP KNE CONDYLE&PLATU MEDIAL&LAT COMPARTMENTS Medical History [...] Description 03/07/2025 9:10 AM EDT Office Visit [facility] [address] [facility] [address] [place] [address] Cj Booth, AMEYA [address] [place] [address] Health Maintenance Due Date Last Done Comments [...] of11 resultswithin the time period is included. [facility] Protime 27.1(H) 10.6 - 13.9 sec LAB COAGULATION METHOD 02/01/2025 2:08 PM EDT [facility] INR 2.2 LAB COAGULATION METHOD 02/01/2025 2:08 PM EDT [facility] Blood Venous blood specimen / Unknown Venipuncture / Unknown 02/01/2025 12:28 PM EDT 02/01/2025 12:59 PM EDT Joana Leggett MD LAB BLOOD ORDERABLES Final Resu lt Performing Organization Address City/[facility]/ZIP Co de Phone Number [facility] [address] [place] [address], * ECG-Annotated (01/10/2025) Rigoberto Osborn MD ECG ORDERABLES Final Result * Troponin I high sensitivity (01/08/2025 2:23 PM EST) Only the most recent of2 resultswithin the time period is included. [facility] High Sensitivity Troponin I 10 <=79 ng/L LAB CHEMISTRY METHOD 01/08/2025 3:05 PM EST [facility] Blood Venous blood specimen / Unknown Venipuncture / Unknown 01/08/2025 2:23 PM EST 01/08/2025 2:38 PM EST Narrative [facility] - 01/08/2025 3:05 PM EST High levels of biotin in samples may falsely decrease hsTroponin values. ??Use caution when interpreting hsTroponin results in patients taking biotin who exhibit renal impairment (eGFR <60) or in patients taking more than 20 mg/day of biotin. Tonio Gallegos MD LAB BLOOD ORDERABLES Final Resu lt [facility] [address] [place] [address], [place] [phone] * ECG 12 lead (01/08/2025 1:59 PM EST) Ventricular Rate ECG 67 BPM GEMUSE Atrial Rate 67 BPM GEMUSE P-R Interval 160 ms GEMUSE QRS Duration 94 ms GEMUSE Q-T Interval 436 ms GEMUSE QTc 460 ms GEMUSE P Wave [place] 43 degrees GEMUSE R [place] 49 degrees GEMUSE T [place] 36 degrees GEMUSE ECG Interpretation Sinus rhythm [...] Signed Date: 01/08/2025 14:03 ET Workstation ID: [id number] Transcribed By: Self Edit Transcribed Date: 01/08/2025 [...] Signed Date: 01/08/2025 14:03 ET Workstation ID: [id number] Transcribed By: Self Edit Transcribed Date: 01/08/2025 14:02 ET Tonio Gallegos MD IMG XR PROCEDURES Final Result * (ABNORMAL) CBC auto differential (01/08/2025 1:08 PM EST) WBC 7.3 4.8 - 10.8 K/mcL LAB HEMETOLOGY METHOD 01/08/2025 1:[address] [facility] RBC 4.20(L) 4.50 - 5.50 M/mcL LAB HEMETOLOGY METHOD 01/08/2025 1:[address] [facility] Hemoglobin 11.6(L) 13.5 - 17.5 g/dL LAB HEMETOLOGY METHOD 01/08/2025 1:[address] [facility] Hematocrit 37.1(L) 42.0 - 54.0 % LAB HEMETOLOGY METHOD 01/08/2025 1:[address] [facility] MCV 88.8 79.0 - 98.0 FL LAB HEMETOLOGY METHOD 01/08/2025 1:[address] [facility] MCH 27.8 27.0 - 32.0 pcg LAB HEMETOLOGY METHOD 01/08/2025 1:[address] [facility] MCHC 31.3(L) 32.0 - 37.0 g/dL LAB HEMETOLOGY METHOD 01/08/2025 1:[address] [facility] RDW 16.9(H) 11.0 - 15.0 % LAB HEMETOLOGY METHOD 01/08/2025 1:[address] [facility] Platelets 220 130 - 400 K/mcL LAB HEMETOLOGY METHOD 01/08/2025 1:[address] [facility] MPV 10.2 7.0 - 11.0 FL LAB HEMETOLOGY METHOD 01/08/2025 1:[address] [facility] NRBC 0.0 <1.0 % LAB HEMETOLOGY METHOD 01/08/2025 1:[address] [facility] NRBC Absolute 0.00 <0.10 K/mcL LAB HEMETOLOGY METHOD 01/08/2025 1:[address] [facility] Neutrophils Relative 71.7 % LAB HEMETOLOGY METHOD 01/08/2025 1:[address] [facility] Lymphocytes Relative 17.6 % LAB HEMETOLOGY METHOD 01/08/2025 1:[address] [facility] Monocytes Relative 8.0 % LAB HEMETOLOGY METHOD 01/08/2025 1:[address] [facility] Eosinophils Relative 1.6 % LAB HEMETOLOGY METHOD 01/08/2025 1:[address] [facility] Basophils Relative 1.0 % LAB HEMETOLOGY METHOD 01/08/2025 1:[address] [facility] Immature Granulocytes Relative 0.1 % LAB HEMETOLOGY METHOD 01/08/2025 1:[address] [facility] Neutrophils Absolute 5.25 1.50 - 7.00 K/mcL LAB HEMETOLOGY METHOD 01/08/2025 1:33 PM EST [facility] Lymphocytes Absolute 1.29 1.00 - 5.00 K/mcL LAB HEMETOLOGY METHOD 01/08/2025 1:33 PM EST [facility] Monocytes Absolute 0.59 0.20 - 1.00 K/mcL LAB HEMETOLOGY METHOD 01/08/2025 1:33 PM EST [facility] Eosinophils Absolute 0.12 0.00 - 0.50 K/mcL LAB HEMETOLOGY METHOD 01/08/2025 1:33 PM EST [facility] Basophils Absolute 0.07 0.00 - 0.20 K/mcL LAB HEMETOLOGY METHOD 01/08/2025 1:33 PM EST [facility] Immature Granulocytes Absolute 0.01 0.00 - 0.03 K/mcL LAB HEMETOLOGY METHOD 01/08/2025 1:33 PM EST [facility] Blood Venous blood specimen / Unknown Venipuncture / Unknown 01/08/2025 1:08 PM EST 01/08/2025 1:24 PM EST Tonio Gallegos MD LAB BLOOD ORDERABLES Final Resu lt [facility] [address] [place] [address], * (ABNORMAL) B-type natriuretic peptide (01/08/2025 1:08 PM EST) BNP 201(H) <=100 pcg/mL LAB CHEMISTRY METHOD 01/08/2025 2:05 PM EST [facility] Blood Venous blood specimen / Unknown Venipuncture / Unknown 01/08/2025 1:08 PM EST 01/08/2025 1:24 PM EST Tonio Gallegos MD LAB BLOOD ORDERABLES Final Resu lt [facility] [address] [place] [address], * Magnesium (01/08/2025 1:08 PM EST) [facility] Magnesium 2.3 1.9 - 2.6 mg/dL LAB CHEMISTRY METHOD 01/08/2025 2:00 PM EST [facility] Blood Venous blood specimen / Unknown Venipuncture / Unknown 01/08/2025 1:08 PM EST 01/08/2025 1:24 PM EST us Tonio Gallegos MD LAB BLOOD ORDERABLES Final Resu lt Performing Organization Address [facility]/ZIP Co de Phone Number [facility] [address] [place] [address], [place] [phone] * Lipase (01/08/2025 1:08 PM EST) [facility] Lipase 38 13 - 75 unit/L LAB CHEMISTRY METHOD 01/08/2025 2:00 PM EST [facility] Blood Venous blood specimen / Unknown Venipuncture / Unknown 01/08/2025 1:08 PM EST 01/08/2025 1:24 PM EST us Tonio Gallegos MD LAB BLOOD ORDERABLES Final Resu lt Performing Organization Address City/[facility]/ZIP Co de Phone Number [facility] [address] [place] [address], [place] [phone] * (ABNORMAL) Comprehensive metabolic panel (01/08/2025 1:08 PM EST) [facility] Sodium 140 133 - 145 mmol/L LAB CHEMISTRY METHOD 01/08/2025 2:[address] [facility] Potassium 3.8 3.5 - 5.5 mmol/L LAB CHEMISTRY METHOD 01/08/2025 2:00 PM EST [facility] Chloride 108 96 - 110 mmol/L LAB CHEMISTRY METHOD 01/08/2025 2:[address] [facility] CO2 25 21 - 32 mmol/L LAB CHEMISTRY METHOD 01/08/2025 2:[address] [facility] Anion Gap 7 3 - 11 LAB CHEMISTRY METHOD 01/08/2025 2:[address] [facility] Glucose 95 70 - 100 mg/dL LAB CHEMISTRY METHOD 01/08/2025 2:[address] [facility] BUN 13 5 - 25 mg/dL LAB CHEMISTRY METHOD 01/08/2025 2:[address] [facility] Creatinine 0.77 0.70 - 1.30 mg/dL LAB CHEMISTRY METHOD 01/08/2025 2:[address] [facility] eGFR 90 >=60 mL/min/1. 73m2 LAB CHEMISTRY METHOD 01/08/2025 2:[address] [facility] Comment:Calculation based on the??Chronic Kidney Disease Epidemiology Collaboration (CKD-EPI) equation refit??without adjustment for race. BUN/Creatinine Ratio 16.9 LAB CHEMISTRY METHOD 01/08/2025 2:[address] [facility] Calcium 9.5 8.5 - 10.5 mg/dL LAB CHEMISTRY METHOD 01/08/2025 2:[address] [facility] AST (SGOT) 26 10 - 42 unit/L LAB CHEMISTRY METHOD 01/08/2025 2:[address] [facility] ALT (SGPT) 25 10 - 60 unit/L LAB CHEMISTRY METHOD 01/08/2025 2:[address] [facility] Alkaline Phosphatase 78 42 - 121 unit/L LAB CHEMISTRY METHOD 01/08/2025 2:[address] [facility] Total Protein 6.8 6.0 - 8.0 g/dL LAB CHEMISTRY METHOD 01/08/2025 2:[address] [facility] Albumin 3.1(L) 3.2 - 5.0 g/dL LAB CHEMISTRY METHOD 01/08/2025 2:00 PM EST [facility] Total Bilirubin 0.5 0.0 - 1.4 mg/dL LAB CHEMISTRY METHOD 01/08/2025 2:00 PM EST [facility] Blood Venous blood specimen / Unknown Venipuncture / Unknown 01/08/2025 1:08 PM EST 01/08/2025 1:24 PM EST Tonio Gallegos MD LAB BLOOD ORDERABLES Final Resu lt [facility] ([facility] [address] [place] [address], * (ABNORMAL) Lipid panel (09/02/2023) LDL/HDL Ratio 3 0 - 4 Triglycerides 88 0 - 150 mg/dL Cholesterol 191 0 - 200 mg/dL HDL 73 >=40 mg/dL LDL Cholesterol 101(A) 0 - 100 mg/dL Blood Venous blood specimen / Unknown Historical Provider LAB BLOOD ORDERABLES Bridget l Result from Last 3 Months or Most Recently Relevant to Health Maintenance Insurance MEDICARE [facility] Care Teams 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
[2025-02-07 16:56] LABS: Urine Cytology See Pathology rpt
== END 2025-02-07 14:14 | disposition home or self-care (01) ==
LOC: HO.LAB 14:13
PROVIDERS: PCP Nurse Practitioner Family; Visit Provider Urology
DX: N39.0 Urinary tract infection, site not specified (principal); Z13.9 Encounter for screening, unspecified
CPT/HCPCS: 51798; 81003; 87086; 88112